=== PATIENT | female | born 1940 | race Caucasian/White ===

== ENCOUNTER 2017-02-08 06:08 | Emergency (ER) | payer MEDICARE ==
[~2017-02-08] VITALS: Ht 160 cm; Wt 102.4 kg
[~2017-02-08 06:08] MED LIST: 1-ME1LIQ PO; ALLO300 PO; AMAR4TAB PO; BISA10SU8 PR; CLON.1 PO; FURO1TAB93 PO; LACTCAP6 PO; LEVEMIR SC; LEVEMIR SQ; LEVO100T4 PO; LIPI40TA PO; LISI-363 PO; MACR100C PO; PANT20 PO; PRED10 PO; ST JTAB PO; ZYRT10TA12 PO
[2017-02-08 06:23] VITALS: BP 150/79; PULSE 85; RESP 20; TEMP 98.4; O2SAT 96
[2017-02-08] MEDS ORDERED: ONDANSETRON ODT 4 MG TAB PO ONE (07:30)
--- NOTE | 2017-02-08 07:30 | PD ---
HPI Chief Complaint: Musculoskeletal Complaint Time Seen by Provider: 07:13 Travel History International Travel<30 days: No Contact w/Intl Traveler<30days: No History of Present Illness HPI Patient is a 76-year-old female who presents to emergency room with complaints of right-sided elbow pain. Patient reports that on Friday, she was at home and tripped over a bag of soil. Patient reports that she landed on her right elbow, reports no trauma to the head or neck. Patient reports that she has had problems with her right shoulder at baseline and she has bad arthritis, reports the pain to her right shoulder is at baseline at this time. Patient does take a baby aspirin per day. Patient concerned that she may have a fracture to her right elbow as she reports difficulty with range of motion to her elbow. Patient denies any hip pain or pelvic pain, reports that she is able to ambulate without any difficulty at this time. PFSH Past Medical History Hx Anticoagulant Therapy: No Anemia: Yes Arthritis: Yes Asthma: No Anxiety: Yes Heart Rhythm Problems: No Cancer: No Cardiac Catheterization: Yes (2011: NEGATIVE) Cardiovascular Problems: No High Cholesterol: Yes Chemotherapy: No Chest Pain: Yes Congestive Heart Failure: Yes (?) COPD: No Cerebrovascular Accident: No Diabetes: Yes Diminished Hearing: No Endocrine: Yes (hypothyroid) Gastrointestinal Disorders: Yes (IBS) Glaucoma: No Gout: Yes Genitourinary: Yes (CHRONIC KIDNEY DISEASE--STAGE 3) Headaches: No Hepatitis: No Hiatal Hernia: Yes Hypertension: Yes Immune Disorder: Yes Implanted Vascular Access Dvce: No Musculoskeletal: Yes Neurologic: Yes Psychiatric: No Reproductive: No Respiratory: No Migraines: Yes Renal Failure: Yes (stage 3) Seizures: No Thyroid Disease: Yes (HYPO) Menopausal: Yes : 4 Para: 4 Past Surgical History Abdominal Surgery: Yes Appendectomy: Yes (?) Cardiac Surgery: No Ear Surgery: No Endocrine Surgery: No Eye Surgery: Yes (BILATERAL CATARACT) Genitourinary Surgery: Yes Gynecologic Surgery: Yes (1982 HYSTERECTOMY BILATERAL S&O) Hysterectomy: Yes Neurologic Surgery: No Oral Surgery: Yes (AGE 9 T&A) Pacemaker: No Thoracic Surgery: No Tonsillectomy: Yes Other Surgery: Yes Social History Alcohol Use: No Tobacco Use: No Substance Use: No Allergies-Medications (Allergen,Severity, Reaction): Coded Allergies: Nonsteroidal Anti-Inflammatory Agts (Verified Allergy, Severe, Urinary Freq (Inc/Dec), 02/08/17) KIDNEY FAILURE Sulfa (Verified Allergy, Severe, GI UPSET, 02/08/17) Aspirin (Verified Adverse Reaction, Severe, KIDNEY DISEASE, 02/08/17) Augmentin (Verified Adverse Reaction, Intermediate, SICK TO STOMACH, ) Biaxin (Verified Adverse Reaction, Intermediate, SICK TO STOMACH, 02/08/17) Ceclor (Verified Adverse Reaction, Intermediate, SICK TO STOMACH, 02/08/17) Cipro (Verified Adverse Reaction, Intermediate, SICK TO STOMACH, 02/08/17) Reported Meds & Prescriptions Reported Meds & Active Scripts Active Percocet (Oxycodone-Acetaminophen) 5-325 mg Tab 1 Tab PO Q6H PRN Reported Protonix (Pantoprazole Sodium) 20 Mg Tab 20 Mg PO DAILY Novolog Inj (Insulin Aspart) 1,000 Unit/10 Ml Vial 20 Units SQ DIRECTED Gabapentin 300 Mg Cap 300 Mg PO HS Metoprolol Tartrate 50 Mg Tab 50 Mg PO BID Flonase Nasal [place] (Fluticasone Nasal [place]) 50 Mcg/Act [place] 50 Mcg EACH NARE BID Lisinopril 20 Mg Tab 20 Mg PO DAILY Levothyroxine (Levothyroxine Sodium) 112 Mcg Tab 112 Mcg PO DAILY Probiotic Acidophilus Sup (Lactobacillus) 1 Tab Tab Levemir Inj (Insulin Detemir) 1,000 unit/ 10 ML Vial 40 Units SQ HS Do not mix with any other Insulin. Levemir Inj (Insulin Detemir) 1,000 unit/ 10 ML Vial 30 Units SQ DAILY@0600 Do not mix with any other Insulin. Amaryl (Glimepiride) 4 Mg Tab 4 Mg PO BID Take with breakfast or the first main meal Furosemide 20 Mg Tab 20 Mg PO DAILY Clonidine (Clonidine HCl) 0.1 Mg Tab 0.1 Mg PO BID Dulcolax DR (Bisacodyl) 5 Mg Tabdr 10 Mg PO BID Lipitor (Atorvastatin Calcium) 40 Mg Tab 40 Mg PO HS Aspirin 81 Mg Chew 81 Mg CHEW DAILY Allopurinol 300 Mg Tab 300 Mg PO DAILY Review of Systems Gastrointestinal: Positive: Nausea, No: Vomiting, Abdominal Pain Musculoskeletal: Positive: Limited ROM (right elbow pain), Pain (right elbow pain) Physical Exam Narrative GENERAL: Well-nourished, well-developed patient. SKIN: Warm and dry. HEAD: Normocephalic. EYES: No scleral icterus. No injection or drainage. NECK: Supple, trachea midline. No JVD or lymphadenopathy. CARDIOVASCULAR: Regular rate and rhythm without murmurs, gallops, or rubs. RESPIRATORY: Breath sounds equal bilaterally. No accessory muscle use. GASTROINTESTINAL: Abdomen soft, non-tender, nondistended. MUSCULOSKELETAL: No cyanosis, or edema. Patient with pain with range of motion to right elbow, patient does have healing abrasions with scabs to her right elbow, no obvious deformities or open fracture, pulses intact, neurovascularly intact, left upper extremity: Normal exam BACK: Nontender without obvious deformity. No CVA tenderness. Data Data Last Documented VS Vital Signs Date Time Temp Pulse Resp B/P Pulse Ox O2 Delivery O2 Flow Rate FiO2 02/08/17 06:23 98.4 85 20 150/79 96 Room Air Orders Elbow, Complete (4 Vws) (02/08/17 06:59) Ondansetron Odt (Zofran Odt) (02/08/17 07:30) Oxycodone-Acetamin 5-325 Mg (Percocet (02/08/17 08:15) Support Splint (02/08/17 08:10) MDM Medical Decision Making Medical Screen Exam Complete: Yes Emergency Medical Condition: Yes Interpretation(s) Vital Signs Date Time Temp Pulse Resp B/P Pulse Ox O2 Delivery O2 Flow Rate FiO2 02/08/17 06:23 98.4 85 20 150/79 96 Room Air Differential Diagnosis Right-sided elbow fracture versus right-sided elbow strain Narrative Course Patient is a 76-year-old female who presents to emergency room after she fell on Friday at home landing on her right elbow. Patient reports that she has had increased pain to her right elbow since Friday after the fall, reports concern for possible fracture. Patient reports that the pain is so severe, she feels sick to her stomach and feels nauseous. Patient here for x-ray of her elbow. Patient denies any trauma to the head or neck, patient currently takes a baby aspirin. Patient with no loss of consciousness after fall. X-ray of the right elbow ordered to evaluate for possible fracture X-ray of the elbow shows elbow effusion, fractures not seen, there is chronic hypertrophic changes adjacent to the lateral epicondyle Patient with elbow injury since friday - will have patient follow up with ortho as outpt and return to ER as needed. copy of pt's xray given to patient. patient will follow up with her orthopedic surgeon and will return to ER as needed. Diagnosis Primary Impression: Effusion of elbow joint, right Additional Impression: Sprain of right elbow Qualified Code: S53.401A - Sprain of right elbow, initial encounter Patient Instructions: General Instructions, Narcotic given in the ED Additional Instructions: Please follow-up with orthopedic surgeon as soon as possible Return to the emergency room as needed Please do not drive or operate heavy machinery while taking narcotic pain medications Please bring the copy of your elbow x-ray to doctor's office for follow-up Med/Other Pt SpecificInfo: Prescription(s) given, Orthopedic Instructions Scripts Oxycodone-Acetaminophen (Percocet)5-325 mg Tab1 Tab PO Q6H PRN (PAIN) #10 TAB Ref 0 Prov:Evelyn Locke DO 02/08/17 Disposition: 01 DISCHARGE HOME Condition: Stable Evelyn Locke DO Feb 08, 2017 07:30
--- NOTE | 2017-02-08 07:32 | RADHPO ---
EXAM DATE/TIME: 02/08/2017 07:06 [facility] COMPARISON: No previous studies available for comparison. INDICATIONS : Fell, has increasing pain, very limited ROM MEDICAL HISTORY : Diabetes mellitus type II. SURGICAL HISTORY : None. ENCOUNTER: Initial ACUITY: 4 - 6 days PAIN SCORE: 10/10 LOCATION: Right elbow FINDINGS: There is an elbow effusion. The elbow appears aligned. A fracture is not clearly seen. There is some hypertrophic change seen adjacent to the lateral epicondyle. CONCLUSION: 1. Elbow effusion. This can be an isolated finding or associated with occult fractures. A fracture is not seen. 2. Chronic hypertrophic change adjacent to the lateral epicondyle Jose M Silva MD on February 08, 2017 at 7:28 Board Certified Radiologist. This report was verified electronically.
[2017-02-08] MEDS ORDERED: ALLO300T2 PO (07:50)
[2017-02-08] MEDS ORDERED: FLUT1SPR5 EACH NARE (07:50)
[2017-02-08] MEDS ORDERED: PANT20 PO (07:50)
[2017-02-08] MEDS ORDERED: FURO20TA PO (07:50)
[2017-02-08] MEDS ORDERED: LEVEMIR SQ ×2 (07:50)
[2017-02-08] MEDS ORDERED: LIPI40TA PO (07:50)
[2017-02-08] MEDS ORDERED: CLON0.1T PO (07:50)
[2017-02-08] MEDS ORDERED: LACT1TAB2 (07:50)
[2017-02-08] MEDS ORDERED: NOVOLOGP2 SQ (07:50)
[2017-02-08] MEDS ORDERED: DULC5TAB PO (07:50)
[2017-02-08] MEDS ORDERED: METO50TA PO (07:50)
[2017-02-08] MEDS ORDERED: LEVO-168 PO (07:50)
[2017-02-08] MEDS ORDERED: LISI-515 PO (07:50)
[2017-02-08] MEDS ORDERED: AMAR4TAB PO (07:50)
[2017-02-08] MEDS ORDERED: ASPI81CH CHEW (07:50)
[2017-02-08] MEDS ORDERED: GABA300C5 PO (07:50)
[2017-02-08] MEDS ORDERED: PERC5TAB12 PO (08:10)
[2017-02-08] MEDS ORDERED: oxyCODONE/ACETAMINOPHEN 5 MG/325 MG TAB PO ONE (08:15)
== END 2017-02-08 08:56 | disposition home or self-care (01) ==
LOC: PHED 06:08
DX: M25.429 Effusion, unspecified elbow (principal); S53.491A Other sprain of right elbow, initial encounter; M19.90 Unspecified osteoarthritis, unspecified site; E13.21 Other specified diabetes mellitus with diabetic nephropathy; N18.3 Chronic kidney disease, stage 3 (moderate); E78.00 Pure hypercholesterolemia, unspecified; I12.9 Hypertensive chronic kidney disease with stage 1 through stage 4 chronic kidney disease, or unspecified chronic kidney disease; Z79.4 Long term (current) use of insulin; W18.09XA Striking against other object with subsequent fall, initial encounter; Y93.9 Activity, unspecified; Y92.099 Unspecified place in other non-institutional residence as the place of occurrence of the external cause; Y99.9 Unspecified external cause status
CPT/HCPCS: 73080; 99283

== ENCOUNTER 2017-08-30 18:40 | Inpatient (IN) | payer MEDICARE ==
[~2017-08-30] VITALS: Ht 160 cm; Wt 99.5 kg
[~2017-08-30 18:40] MED LIST changes: -1-ME1LIQ PO; -ALLO300 PO; +ALLO300T2 PO; +ASPI81CH CHEW; -BISA10SU8 PR; -CLON.1 PO; +CLON0.1T PO; +DULC5TAB PO; +FLUT1SPR5 EACH NARE; -FURO1TAB93 PO; +FURO20TA PO; +GABA300C5 PO; +LACT1TAB2; -LACTCAP6 PO; -LEVEMIR SC; +LEVO-168 PO; -LEVO100T4 PO; -LISI-363 PO; +LISI-515 PO; -MACR100C PO; +METO50TA PO; +NOVOLOGP2 SQ; +PERC5TAB12 PO; -PRED10 PO; -ST JTAB PO; -ZYRT10TA12 PO
[2017-08-30 18:44] VITALS: BP 272/135; PULSE 65; RESP 15; TEMP 98.4; O2SAT 98
[2017-08-30 18:45] VITALS: BP 273/153
[2017-08-30] MEDS ORDERED: hydrALAZINE HCL 20 MG/ML VIAL IV PUSH ONE (19:30)
[2017-08-30] MEDS ORDERED: SODIUM CHLORIDE 0.9% FLUSH 10 ML FLUSH IVF PRN (19:30)
--- NOTE | 2017-08-30 19:44 | PD ---
HPI Chief Complaint: Hypertension Time Seen by Provider: 19:05 Travel History International Travel<30 days: No Contact w/Intl Traveler<30days: No Traveled to known affect area: No History of Present Illness HPI This is a 77-year-old female who presents to the emergency department with a history of chronic kidney disease and high blood pressure. She says that she just started to take her blood pressure 2 days ago because she went to clinic appointments and was told that it was high in the 160s. She says in the past 2 days as been running in the 180s to 200s, constant, severe, not improving despite medications. She's developed some left-sided chest discomfort which she thinks may be her costochondritis as it is tender when she presses on the chest wall but she is not sure. She also says she has a headache but this is chronic for her. She takes metoprolol which was recently increased from 50-100 twice a day. She also takes diltiazem, lisinopril and clonidine. She says she is taking clonidine for years. 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 Marc her primary doctor. PFSH Past Medical History Hx Anticoagulant Therapy: No Anemia: Yes Arthritis: Yes Asthma: No Anxiety: Yes Heart Rhythm Problems: No Cancer: No Cardiac Catheterization: Yes (2011: NEGATIVE) Cardiovascular Problems: Yes High Cholesterol: Yes Chemotherapy: No Chest Pain: Yes Congestive Heart Failure: Yes (?) COPD: No Cerebrovascular Accident: No Diabetes: Yes Patient Takes Glucophage: No Diminished Hearing: Yes (right ear) Endocrine: Yes (hypothyroid) Gastrointestinal Disorders: Yes (ibs, gastroparesis) Glaucoma: No Gout: Yes Genitourinary: Yes (CHRONIC KIDNEY DISEASE--STAGE 3) Headaches: No Hepatitis: No Hiatal Hernia: Yes Hypertension: Yes Immune Disorder: Yes Implanted Vascular Access Dvce: No Musculoskeletal: Yes Neurologic: Yes Psychiatric: No Reproductive: No Respiratory: Yes (pulmonary fibrosis) Migraines: Yes Renal Failure: Yes (stage 3) Seizures: No Thyroid Disease: Yes (HYPO) Triglycerides - High: Yes Tetanus Vaccination: > 5 Years Influenza Vaccination: Yes ?: Not Menopausal: Yes : 4 Para: 4 Past Surgical History Abdominal Surgery: Yes Appendectomy: Yes (?) Cardiac Surgery: No Ear Surgery: No Endocrine Surgery: No Eye Surgery: Yes (cataract) Genitourinary Surgery: Yes Gynecologic Surgery: Yes (1983 HYSTERECTOMY BILATERAL S&O) Hysterectomy: Yes (total) Neurologic Surgery: No Oral Surgery: Yes (AGE 9 T&A) Pacemaker: No Thoracic Surgery: No Tonsillectomy: Yes Other Surgery: Yes Social History Alcohol Use: No Tobacco Use: No Substance Use: No Allergies-Medications (Allergen,Severity, Reaction): Coded Allergies: Sulfa (Sulfonamide Antibiotics) (Unverified Allergy, Severe, GI UPSET, ) diclofenac (Unverified Allergy, Severe, Urinary Freq (Inc/Dec), 08/30/17) KIDNEY FAILURE etodolac (Unverified Allergy, Severe, Urinary Freq (Inc/Dec), 08/30/17) KIDNEY FAILURE flurbiprofen (Unverified Allergy, Severe, Urinary Freq (Inc/Dec), 08/30/17) KIDNEY FAILURE ibuprofen (Unverified Allergy, Severe, Urinary Freq (Inc/Dec), 08/30/17) KIDNEY FAILURE indomethacin (Unverified Allergy, Severe, Urinary Freq (Inc/Dec), 08/30/17) KIDNEY FAILURE ketoprofen (Unverified Allergy, Severe, Urinary Freq (Inc/Dec), 08/30/17) KIDNEY FAILURE ketorolac (Unverified Allergy, Severe, Urinary Freq (Inc/Dec), 08/30/17) KIDNEY FAILURE naproxen (Unverified Allergy, Severe, Urinary Freq (Inc/Dec), 08/30/17) KIDNEY FAILURE oxaprozin (Unverified Allergy, Severe, Urinary Freq (Inc/Dec), 08/30/17) KIDNEY FAILURE aspirin (Unverified Adverse Reaction, Severe, KIDNEY DISEASE, 08/30/17) amoxicillin (Unverified Adverse Reaction, Intermediate, SICK TO STOMACH, ) cefaclor (Unverified Adverse Reaction, Intermediate, SICK TO STOMACH, 08/30) ciprofloxacin (Unverified Adverse Reaction, Intermediate, SICK TO STOMACH , 08/30/17) clarithromycin (Unverified Adverse Reaction, Intermediate, SICK TO STOMACH , 08/30/17) clavulanic acid (Unverified Adverse Reaction, Intermediate, SICK TO STOMACH, 08/30/17) Reported Meds & Prescriptions Reported Meds & Active Scripts Active Reported Linzess (Linaclotide) 290 Mcg Cap 290 Mcg PO DAILY Protonix (Pantoprazole Sodium) 20 Mg Tab 20 Mg PO DAILY Novolog Inj (Insulin Aspart) 1,000 Unit/10 Ml Vial 25 Units SQ DIRECTED Gabapentin 300 Mg Cap 300 Mg PO HS Metoprolol Tartrate 50 Mg Tab 100 Mg PO BID Flonase Nasal [place] (Fluticasone Nasal [place]) 50 Mcg/Act [place] 50 Mcg EACH NARE BID Lisinopril 20 Mg Tab 20 Mg PO DAILY Levothyroxine (Levothyroxine Sodium) 112 Mcg Tab 137 Mcg PO DAILY Levemir Inj (Insulin Detemir) 1,000 unit/ 10 ML Vial 40 Units SQ HS Do not mix with any other Insulin. Levemir Inj (Insulin Detemir) 1,000 unit/ 10 ML Vial 40 Units SQ DAILY@0600 Do not mix with any other Insulin. Amaryl (Glimepiride) 4 Mg Tab 4 Mg PO BID Take with breakfast or the first main meal Furosemide 20 Mg Tab 20 Mg PO DAILY Clonidine (Clonidine HCl) 0.1 Mg Tab 0.1 Mg PO BID Dulcolax DR (Bisacodyl) 5 Mg Tabdr 10 Mg PO BID Lipitor (Atorvastatin Calcium) 40 Mg Tab 40 Mg PO HS Aspirin 81 Mg Chew 81 Mg CHEW DAILY Allopurinol 300 Mg Tab 300 Mg PO DAILY Review of Systems Except as stated in HPI: all other systems reviewed are Neg Physical Exam Narrative GENERAL:Well appearing, no acute distress SKIN: Focused skin assessment warm and dry. HEAD: Atraumatic. Normocephalic. EYES: Pupils equal and round. No injection or drainage. ENT: Moist mucous membranes NECK: Trachea midline. CARDIOVASCULAR: Regular rate and rhythm. No murmur appreciated. RESPIRATORY: Clear to auscultation. Breath sounds equal bilaterally. GASTROINTESTINAL: Abdomen soft, non-tender, nondistended. MUSCULOSKELETAL: No obvious deformities. NEUROLOGICAL: Awake and alert. No obvious cranial nerve deficits.Moving all extremities. PSYCHIATRIC: Appropriate mood and affect; insight and judgment normal. Data Data Last Documented VS Vital Signs Date Time Temp Pulse Resp B/P (MAP) Pulse Ox O2 Delivery O2 Flow Rate FiO2 08/30/17 20:48 61 18 190/80 (116) 96 Room Air Automatic Cuff 08/30/17 18:44 98.4 Orders Orders Electrocardiogram (08/30/17 19:21) Complete Blood Count With Diff (08/30/17 19:21) Comprehensive Metabolic Panel (08/30/17 19:21) Troponin I (08/30/17 19:21) Ecg Monitoring (08/30/17 19:21) Bilateral Bp Monitoring (08/30/17 19:21) Iv Access Insert/Monitor (08/30/17 19:21) Oximetry (08/30/17 19:21) Oxygen Administration (08/30/17 19:21) Sodium Chloride 0.9% Flush (Ns Flush) (08/30/17 19:30) Ct Brain W/O Iv Contrast(Rout) (08/30/17 ) Hydralazine Inj (Apresoline Inj) (08/30/17 19:30) Sodium Chlor 0.9% 1000 Ml Inj (Ns 1000 M (08/30/17 21:00) Labs Laboratory Tests Test 08/30/17 19:51 White Blood Count 12.3 TH/MM3 Red Blood Count 4.48 MIL/MM3 Hemoglobin 14.2 GM/DL Hematocrit 43.6 % Mean Corpuscular Volume 97.3 FL Mean Corpuscular Hemoglobin 31.7 PG Mean Corpuscular Hemoglobin Concent 32.6 % Red Cell Distribution Width 14.4 % Platelet Count 297 TH/MM3 Mean Platelet Volume 9.9 FL Neutrophils (%) (Auto) 57.4 % Lymphocytes (%) (Auto) 30.2 % Monocytes (%) (Auto) 9.0 % Eosinophils (%) (Auto) 2.5 % Basophils (%) (Auto) 0.9 % Neutrophils # (Auto) 7.1 TH/MM3 Lymphocytes # (Auto) 3.7 TH/MM3 Monocytes # (Auto) 1.1 TH/MM3 Eosinophils # (Auto) 0.3 TH/MM3 Basophils # (Auto) 0.1 TH/MM3 CBC Comment DIFF FINAL Differential Comment Blood Urea Nitrogen 18 MG/DL Creatinine 1.39 MG/DL Random Glucose 179 MG/DL Total Protein 6.7 GM/DL Albumin 2.8 GM/DL Calcium Level 9.0 MG/DL Alkaline Phosphatase 95 U/L Aspartate Amino Transf (AST/SGOT) 22 U/L Alanine Aminotransferase (ALT/SGPT) 23 U/L Total Bilirubin 0.5 MG/DL Sodium Level 141 MEQ/L Potassium Level 3.4 MEQ/L Chloride Level 107 MEQ/L Carbon Dioxide Level 23.2 MEQ/L Anion Gap 11 MEQ/L Estimat Glomerular Filtration Rate 37 ML/MIN Troponin I 0.04 NG/ML MDM Medical Decision Making Medical Screen Exam Complete: Yes Emergency Medical Condition: Yes Interpretation(s) Afebrile, no tachycardia, hypertensive Leukocytosis Mild hypokalemia Renal insufficiency similar to prior Troponin is 0.04 EKG: nsr, no st changes Differential Diagnosis hypertensive emergency, hypertensive urgency, nstemi, intracranial hemorrhage Narrative Course This is a 77-year-old female who presents to the emergency department with hypertension. She also has headache and chest discomfort. She is placed in a monitor and an IV was established. Her blood pressure was quite high on arrival. She was given a 20 mg IV hydralazine dose as she takes clonidine at home, and her map reduced significantly. Labs are obtained which were all reassuring. I think patient requires admission for continued blood pressure control. Physician Communication Physician Communication Discussed with Dr. Clark Diagnosis Primary Impression: Hypertensive urgency Admitting Information Admitting Physician Requests: Admit Zahida Colin MD Aug 30, 2017 19:43
[2017-08-30] MEDS ORDERED: LINA290C PO (19:45)
[2017-08-30 20:07] LABS: AUTOMATED NEUTROPHIL # 7.1 TH/MM3 (1.8-7.7); BASOPHIL # 0.1 TH/MM3 (0-0.2); BASOPHIL % 0.9 % (0.0-2.0); EOSINOPHIL # 0.3 TH/MM3 (0-0.4); EOSINOPHIL % 2.5 % (0.0-4.0); HEMATOCRIT 43.6 % (35.0-46.0); HEMO FLAGS DIFF FINAL; LYMPH % 30.2 % (9.0-44.0); LYMPHOCYTE # 3.7 TH/MM3 (1.0-4.8); MEAN CELL VOLUME 97.3 FL (80.0-100.0); MEAN CORPUSCULAR HEMOGLOBIN 31.7 PG (27.0-34.0); MEAN CORPUSCULAR HGB CONC 32.6 % (32.0-36.0); NEUT % 57.4 % (16.0-70.0); PLATELET COUNT 297 TH/MM3 (150-450); RED BLOOD COUNT 4.48 MIL/MM3 (4.00-5.30); RED CELL DISTRIBUTION WIDTH 14.4 % (11.6-17.2); WHITE BLOOD COUNT 12.3 TH/MM3 (4.0-11.0)
--- NOTE | 2017-08-30 20:26 | RADRPT ---
EXAM DATE/TIME: 08/30/2017 19:47 [facility] COMPARISON: CT BRAIN W/O CONTRAST, August 17, 2015, 23:04. INDICATIONS : Cephalgia today. RADIATION DOSE: 56.35 CTDIvol (mGy) MEDICAL HISTORY : Hypertension. renal disease, diabetes SURGICAL HISTORY : cardiac catheterization ENCOUNTER: Initial ACUITY: 1 day PAIN SCALE: 5/10 LOCATION: Bilateral head TECHNIQUE: Multiple contiguous axial images were obtained of the head. Using automated exposure control and adj ustment of the mA and/or kV according to patient size, radiation dose was kept as low as reasonably a chievable to obtain optimal diagnostic quality images. DICOM format image data is available electro nically for review and comparison. FINDINGS: CEREBRUM: The ventricles are normal for age. No evidence of midline shift, mass lesion, hemorrhage or acute in farction. No extra-axial fluid collections are seen. POSTERIOR FOSSA: The cerebellum and brainstem are intact. The 4th ventricle is midline. The cerebellopontine angle i s unremarkable. EXTRACRANIAL: The visualized portion of the orbits is intact. SKULL: The calvaria is intact. No evidence of skull fracture. CONCLUSION: Negative noncontrast CT brain. Bharath Bernard MD on August 30, 2017 at 20:24 Board Certified Radiologist. This report was verified electronically.
[2017-08-30 20:30] LABS: ALT (GPT) 23 U/L (10-53); ANION GAP 11 MEQ/L (5-15); AST (GOT) 22 U/L (15-37); BICARBONATE 23.2 MEQ/L (21.0-32.0); BLOOD UREA NITROGEN 18 MG/DL (7-18); CHLORIDE 107 MEQ/L (98-107); GLOMERULAR FILTRATION RATE 37 ML/MIN (>89); POTASSIUM 3.4 MEQ/L (3.5-5.1); SODIUM (NA) 141 MEQ/L (136-145)
[2017-08-30 20:35] LABS: ALKALINE PHOSPHATASE 95 U/L (45-117); TOTAL BILIRUBIN ADULT 0.5 MG/DL (0.2-1.0)
[2017-08-30 20:40] VITALS: RESP 17; O2SAT 95
[2017-08-30 20:48] VITALS: BP 190/80; PULSE 61; RESP 18; O2SAT 96
[2017-08-30] MEDS ORDERED: SODIUM CHLOR 0.9% 1000 ML INJ 1,000 ML IV SCH ×2 (21:00→21:30)
[2017-08-30] MEDS ORDERED: ONDANSETRON HCL 4 MG/2 ML VIAL IV ONE (21:30)
[2017-08-30] MEDS ORDERED: MAGNESIUM HYDROXIDE SUSP 30 ML CUP PO PRN (22:00)
[2017-08-30] MEDS ORDERED: NALOXONE HCL 0.4 MG/ML AMP IV PUSH PRN (22:00)
[2017-08-30] MEDS ORDERED: LABETALOL HCL 100 MG/20 ML VIAL IV PUSH PRN (22:00)
[2017-08-30] MEDS ORDERED: SODIUM CHLORIDE 0.9% FLUSH 10 ML FLUSH IV FLUSH PRN (22:00)
--- NOTE | 2017-08-30 22:10 | RADRPT ---
EXAM DATE/TIME: 08/30/2017 21:56 [facility] COMPARISON: No previous studies available for comparison. INDICATIONS : Cough. MEDICAL HISTORY : None. SURGICAL HISTORY : None. ENCOUNTER: Initial ACUITY: 1 day PAIN SCORE: 0/10 LOCATION: chest FINDINGS: The patient is rotated towards the left. Patchy areas of infiltrate are seen in the medial left lowe r lung loss of delineation of the hemidiaphragm. The right lung is clear. Both hemidiaphragms are w ell delineated. The heart is normal size and taking into account patient rotation. CONCLUSION: Small non-consolidative infiltrate in the medial left lower lung. Bharath Bernard MD on August 30, 2017 at 22:08 Board Certified Radiologist. This report was verified electronically.
--- NOTE | 2017-08-30 22:44 | EKG ---
Date Performed: 08/30/2017 Time Performed: 20:19:49 PTAGE: 77 years EKG: SINUS BRADYCARDIA POSSIBLE LEFT ATRIAL ENLARGEMENT BORDERLINE ECG PREVIOUS TRACING : 12/17/2011 07.13 No significant change from previous tracing noted. DOCTOR: David Roblero Interpretating Date/Time 08/30/2017 22:42:21
[2017-08-30] MEDS: ATORVASTATIN 40 MG TAB PO SCH (22:58)
[2017-08-30] MEDS: BISACODYL EC 5 MG TABEC PO SCH (22:58)
[2017-08-30] MEDS: GABAPENTIN 300 MG CAP PO SCH (22:59)
[2017-08-30 23:08] VITALS: BP 170/75; PULSE 67; RESP 18; O2SAT 95
[2017-08-30] MEDS: METOPROLOL TARTRATE 50 MG TAB PO SCH (23:20)
[2017-08-30] MEDS: cloNIDine HCL 0.1 MG TAB PO SCH (23:20)
[2017-08-30] MEDS: INSULIN DETEMIR 100 UNITS/ML VIAL SQ SCH (23:20)
[2017-08-30 23:34] VITALS: BP 205/90; PULSE 78; RESP 18; O2SAT 98
[2017-08-31] VITALS (27 sets, daily range): BP systolic 125–202; BP diastolic 49–84; PULSE 56–84; RESP 16–20; TEMP 97.8–98.3; O2SAT 94–97
[2017-08-31] MEDS: ACETAMINOPHEN 325 MG TAB PO PRN ×3 (01:20→20:08)
[2017-08-31] MEDS: LEVOTHYROXINE SODIUM 112 MCG TAB PO SCH (06:15)
[2017-08-31] MEDS: LEVOTHYROXINE SODIUM 25 MCG TAB PO SCH (06:16)
[2017-08-31 06:50] LABS: AUTOMATED NEUTROPHIL # 7.4 TH/MM3 (1.8-7.7); BASOPHIL # 0.1 TH/MM3 (0-0.2); BASOPHIL % 0.5 % (0.0-2.0); EOSINOPHIL # 0.2 TH/MM3 (0-0.4); EOSINOPHIL % 1.7 % (0.0-4.0); HEMATOCRIT 37.4 % (35.0-46.0); HEMO FLAGS DIFF FINAL; LYMPH % 25.4 % (9.0-44.0); LYMPHOCYTE # 2.9 TH/MM3 (1.0-4.8); MEAN CELL VOLUME 98.1 FL (80.0-100.0); MEAN CORPUSCULAR HEMOGLOBIN 32.6 PG (27.0-34.0); MEAN CORPUSCULAR HGB CONC 33.2 % (32.0-36.0); MONO % 8.3 % (0.0-8.0); NEUT % 64.1 % (16.0-70.0); PLATELET COUNT 235 TH/MM3 (150-450); RED BLOOD COUNT 3.82 MIL/MM3 (4.00-5.30); RED CELL DISTRIBUTION WIDTH 14.8 % (11.6-17.2); WHITE BLOOD COUNT 11.5 TH/MM3 (4.0-11.0)
[2017-08-31 06:59] LABS: BICARBONATE 24.7 MEQ/L (21.0-32.0); POTASSIUM 3.3 MEQ/L (3.5-5.1)
[2017-08-31] MEDS: INSULIN ASPART SUPPLEMENTAL SCALE SQ SCH ×4 (08:00→20:10)
[2017-08-31] MEDS: METOPROLOL TARTRATE 50 MG TAB PO SCH ×2 (08:24→20:10)
[2017-08-31] MEDS: BISACODYL EC 5 MG TABEC PO SCH ×2 (08:24→20:09)
[2017-08-31] MEDS: PANTOPRAZOLE SOD 20 MG DELAYED RELEASE TAB PO SCH (08:24)
[2017-08-31] MEDS: ASPIRIN 81 MG CHEW TAB CHEW SCH (08:24)
[2017-08-31] MEDS: LISINOPRIL 20 MG TAB PO SCH (08:25)
[2017-08-31] MEDS: ALLOPURINOL 300 MG TAB PO SCH (08:25)
[2017-08-31] MEDS: cloNIDine HCL 0.1 MG TAB PO SCH ×2 (08:25→20:07)
[2017-08-31] MEDS: GLIMEPIRIDE 4 MG TAB PO SCH ×2 (08:25→20:08)
[2017-08-31] MEDS: FUROSEMIDE 20 MG TAB PO SCH (08:30)
[2017-08-31] MEDS: SODIUM CHLORIDE 0.9% FLUSH 10 ML FLUSH IV FLUSH SCH ×2 (08:30→20:09)
[2017-08-31] MEDS ORDERED: POTASSIUM CHLORIDE 20 MEQ CONTROLLED RELEASE TAB PO ONE (08:45)
--- NOTE | 2017-08-31 08:48 | HHI.HP ---
HPI Service [facility] Hospitalists Primary Care Physician Will Marc MD Admission Diagnosis hypertensive urgency Chief Complaint: HTN, headache Travel History International Travel<30 Days: No Contact w/Intl Traveler <30 Da: No Traveled to Known Affected Are: No History of Present Illness This is a 77 year old female patient with a past medical history which includes HTN, DM, peripheral neuropathy, hypothyroidism, gout, hyperlipidemia, CKD and IBS. Patient was seen by her PCP Dr. Marc and was told to keep a BP log. At home patient SBP has been running 180-200. Patient reports that she had called the [facility] nurse and was told to proceed to the ER. Patient had chest pain last night which she describes tight band across her chest. There was no associated SOB, diaphoresis, nausea or vomiting. Patient also has left- sided chest discomfort which is reproducible with palpation of chest wall. She also says she had a headache which is improving and mild at this point. She takes metoprolol which was recently increased from 50-100 twice a day by her hoop maker Dr. Corea, lisinopril 20 mg PO daily and clonidine 0.1 mg BID. She says she is taking clonidine for years. Review of Systems Constitutional: DENIES: Diaphoretic episodes, Fever, Chills Eyes: DENIES: Blurred vision, Vision loss, Double Vision Respiratory: DENIES: Cough, Sputum production, Shortness of breath Cardiovascular: COMPLAINS OF: Chest pain, DENIES: Palpitations, Dyspnea on Exertion, Lower Extremity Edema Gastrointestinal: DENIES: Abdominal pain, Constipation, Diarrhea Neurologic: COMPLAINS OF: Headache Psychiatric: DENIES: Anxiety, Confusion, Depression Past Family Social History Past Medical History HTN, DM, peripheral neuropathy, hypothyroidism, gout, hyperlipidemia, CKD and IBS Past Surgical History Appendectomy, cataract surgery, hysterectomy wit oophorectomy, tonsillectomy and adenoidectomy as a child Reported Medications Linzess (Linaclotide) 290 Mcg Cap 290 Mcg PO DAILY Protonix (Pantoprazole Sodium) 20 Mg Tab 20 Mg PO DAILY Novolog Inj (Insulin Aspart) 1,000 Unit/10 Ml Vial 25 Units SQ DIRECTED Gabapentin 300 Mg Cap 300 Mg PO HS Metoprolol Tartrate 50 Mg Tab 100 Mg PO BID Flonase Nasal [place] (Fluticasone Nasal [place]) 50 Mcg/Act [place] 50 Mcg EACH NARE BID Lisinopril 20 Mg Tab 20 Mg PO DAILY Levothyroxine (Levothyroxine Sodium) 112 Mcg Tab 137 Mcg PO DAILY Levemir Inj (Insulin Detemir) 1,000 unit/ 10 ML Vial 40 Units SQ HS Do not mix with any other Insulin. Levemir Inj (Insulin Detemir) 1,000 unit/ 10 ML Vial 40 Units SQ DAILY@0600 Do not mix with any other Insulin. Amaryl (Glimepiride) 4 Mg Tab 4 Mg PO BID Take with breakfast or the first main meal Furosemide 20 Mg Tab 20 Mg PO DAILY Clonidine (Clonidine HCl) 0.1 Mg Tab 0.1 Mg PO BID Dulcolax DR (Bisacodyl) 5 Mg Tabdr 10 Mg PO BID Lipitor (Atorvastatin Calcium) 40 Mg Tab 40 Mg PO HS Aspirin 81 Mg Chew 81 Mg CHEW DAILY Allopurinol 300 Mg Tab 300 Mg PO DAILY Allergies: Coded Allergies: Sulfa (Sulfonamide Antibiotics) (Unverified Allergy, Severe, GI UPSET, ) diclofenac (Unverified Allergy, Severe, Urinary Freq (Inc/Dec), 08/30/17) KIDNEY FAILURE etodolac (Unverified Allergy, Severe, Urinary Freq (Inc/Dec), 08/30/17) KIDNEY FAILURE flurbiprofen (Unverified Allergy, Severe, Urinary Freq (Inc/Dec), 08/30/17) KIDNEY FAILURE ibuprofen (Unverified Allergy, Severe, Urinary Freq (Inc/Dec), 08/30/17) KIDNEY FAILURE indomethacin (Unverified Allergy, Severe, Urinary Freq (Inc/Dec), 08/30/17) KIDNEY FAILURE ketoprofen (Unverified Allergy, Severe, Urinary Freq (Inc/Dec), 08/30/17) KIDNEY FAILURE ketorolac (Unverified Allergy, Severe, Urinary Freq (Inc/Dec), 08/30/17) KIDNEY FAILURE naproxen (Unverified Allergy, Severe, Urinary Freq (Inc/Dec), 08/30/17) KIDNEY FAILURE oxaprozin (Unverified Allergy, Severe, Urinary Freq (Inc/Dec), 08/30/17) KIDNEY FAILURE aspirin (Unverified Adverse Reaction, Severe, KIDNEY DISEASE, 08/30/17) amoxicillin (Unverified Adverse Reaction, Intermediate, SICK TO STOMACH, ) cefaclor (Unverified Adverse Reaction, Intermediate, SICK TO STOMACH, 08/30) ciprofloxacin (Unverified Adverse Reaction, Intermediate, SICK TO STOMACH , 08/30/17) clarithromycin (Unverified Adverse Reaction, Intermediate, SICK TO STOMACH , 08/30/17) clavulanic acid (Unverified Adverse Reaction, Intermediate, SICK TO STOMACH, 08/30/17) Active Ordered Medications Current Medications Medications (Trade) Dose Ordered Sig/Booker Route Start Time Stop Time Status Last Admin (NS Flush) 2 ml UNSCH PRN IV FLUSH 08/30/17 22:00 (NS Flush) 2 ml BID IV FLUSH 08/31/17 09:00 (Tylenol) 650 mg Q4H PRN PO 08/30/17 22:00 08/31/17 01:20 (Zofran Inj) 4 mg Q6H PRN IVP 08/30/17 22:00 (Narcan Inj) 0.4 mg UNSCH PRN IV PUSH 08/30/17 22:00 (Milk Of Magnrui Liq) 30 ml Q12H PRN PO 08/30/17 22:00 (Zyloprim) 300 mg DAILY PO 08/31/17 09:00 (Aspirin Chew) 81 mg DAILY CHEW 08/31/17 09:00 (Lipitor) 40 mg HS PO 08/30/17 22:00 08/30/17 22:58 (Dulcolax Ec) 10 mg BID PO 08/30/17 22:00 08/30/17 22:58 (Catapres) 0.1 mg BID PO 08/30/17 22:00 08/30/17 23:20 (Lasix) 20 mg DAILY PO 08/31/17 09:00 (Neurontin) 300 mg HS PO 08/30/17 22:00 08/30/17 22:59 (Amaryl) 4 mg BID PO 08/31/17 09:00 (Synthroid) 112 mcg DAILY@0700 PO 08/31/17 07:00 08/31/17 06:15 (Prinivil) 20 mg DAILY PO 08/31/17 09:00 (Lopressor) 100 mg BID PO 08/30/17 22:00 08/30/17 23:20 (Protonix) 20 mg DAILY PO 08/31/17 09:00 Patient Own Medication PT OWN MED: LINLorena... DAILY PO 08/31/17 09:00 (Levemir Inj) 10 units BID SQ 08/30/17 22:00 08/30/17 23:20 (NovoLOG SUPPLEMENTAL SCALE) 1 ACHS SLIDING SCALE SQ 08/31/17 08:00 (Trandate Inj) 10 mg Q2H PRN IV PUSH 08/30/17 22:00 (Synthroid) 25 mcg DAILY@0700 PO 08/31/17 07:00 08/31/17 06:16 Family History reviewed and noncontributory Social History denies ETOH, Tobacco use or illicit drug use Physical Exam Vital Signs Vital Signs Date Time Temp Pulse Resp B/P (MAP) Pulse Ox O2 Delivery O2 Flow Rate FiO2 08/31/17 08:09 97.9 61 16 202/82 (122) 94 08/31/17 07:58 Room Air 08/31/17 07:47 60 08/31/17 06:00 70 08/31/17 05:00 69 08/31/17 04:00 Room Air 08/31/17 04:00 60 08/31/17 04:00 98.0 60 18 125/49 (74) 97 08/31/17 03:00 69 08/31/17 02:00 65 08/31/17 01:00 71 08/31/17 00:33 08/31/17 00:00 60 08/31/17 00:00 98.3 84 20 163/84 (110) 97 08/30/17 23:34 78 18 205/90 (128) 98 Room Air 08/30/17 23:08 67 18 170/75 (106) 95 Room Air 08/30/17 20:48 61 18 190/80 (116) 96 Room Air Automatic Cuff 08/30/17 20:40 17 95 Room Air 08/30/17 20:00 94 Room Air 08/30/17 18:45 273/153 (193) 08/30/17 18:44 98.4 65 15 272/135 (180) 98 Physical Exam GENERAL: This is a well-nourished, well-developed patient, in no apparent distress. SKIN: No rashes, ecchymoses or lesions. Cool and dry. HEAD: Atraumatic. Normocephalic. No temporal or scalp tenderness. EYES:Extraocular motions intact. No scleral icterus. No injection or drainage. CARDIOVASCULAR: Bradycardic RESPIRATORY: Clear to auscultation. Breath sounds equal bilaterally. No wheezes , rales, or rhonchi. GASTROINTESTINAL: Abdomen soft, non-tender, nondistended. No hepato-splenomegaly , or palpable masses. No guarding. MUSCULOSKELETAL: Extremities without clubbing, cyanosis, or edema. No joint tenderness, effusion, or edema noted. No calf tenderness. Negative Homans sign bilaterally. NEUROLOGICAL: Awake and alert. No focal deficits. Motor and sensory grossly within normal limits. Five out of 5 muscle strength in all muscle groups. Normal speech. Laboratory Laboratory Tests Test 08/30/17 19:51 08/31/17 06:15 White Blood Count 12.3 11.5 Red Blood Count 4.48 3.82 Hemoglobin 14.2 12.4 Hematocrit 43.6 37.4 Mean Corpuscular Volume 97.3 98.1 Mean Corpuscular Hemoglobin 31.7 32.6 Mean Corpuscular Hemoglobin Concent 32.6 33.2 Red Cell Distribution Width 14.4 14.8 Platelet Count 297 235 Mean Platelet Volume 9.9 10.2 Neutrophils (%) (Auto) 57.4 64.1 Lymphocytes (%) (Auto) 30.2 25.4 Monocytes (%) (Auto) 9.0 8.3 Eosinophils (%) (Auto) 2.5 1.7 Basophils (%) (Auto) 0.9 0.5 Neutrophils # (Auto) 7.1 7.4 Lymphocytes # (Auto) 3.7 2.9 Monocytes # (Auto) 1.1 1.0 Eosinophils # (Auto) 0.3 0.2 Basophils # (Auto) 0.1 0.1 CBC Comment DIFF FINAL DIFF FINAL Differential Comment Blood Urea Nitrogen 18 16 Creatinine 1.39 1.32 Random Glucose 179 175 Total Protein 6.7 Albumin 2.8 Calcium Level 9.0 8.5 Alkaline Phosphatase 95 Aspartate Amino Transf (AST/SGOT) 22 Alanine Aminotransferase (ALT/SGPT) 23 Total Bilirubin 0.5 Sodium Level 141 143 Potassium Level 3.4 3.3 Chloride Level 107 109 Carbon Dioxide Level 23.2 24.7 Anion Gap 11 9 Estimat Glomerular Filtration Rate 37 39 Troponin I 0.04 Result Diagram: 08/31/1761408/31/17614 Caprini VTE Risk Assessment Caprini VTE Risk Assessment: Mod/High Risk (score >= 2) Caprini Risk Assessment Model Point Value = 1 Point Value = 2 Point Value = 3 Point Value = 5 Age 41-60 Minor surgery BMI > 25 kg/m2 Swollen legs Varicose veins or History of unexplained or recurrent spontaneous Oral contraceptives or hormone replacement Sepsis (< 1 month) Serious lung disease, including pneumonia (< 1 month) Abnormal pulmonary function Acute myocardial infarction Congestive heart failure (< 1 month) History of inflammatory bowel disease Medical patient at bed rest Age 61-74 Arthroscopic surgery Major open surgery (> 45 min) Laparoscopic surgery (> 45 min) Malignancy Confined to bed (> 72 hours) Immobilizing plaster cast Central venous access Age >= 75 History of VTE Family history of VTE Factor V Leiden Prothrombin [id number] Lupus anticoagulant Anticardiolipin antibodies Elevated serum homocysteine Heparin-induced thrombocytopenia Other congenital or acquired thrombophilia Stroke (< 1 month) Elective arthroplasty Hip, pelvis, or leg fracture Acute spinal cord injury (< 1 month) Prophylaxis Regimen Total Risk Factor Score Risk Level Prophylaxis Regimen 0-1 Low Early ambulation 2 Moderate Order ONE of the following: *Sequential Compression Device (SCD) *Heparin 5000 units SQ BID 3-4 Higher Order ONE of the following medications: *Heparin 5000 units SQ TID *Enoxaparin/Lovenox 40 mg SQ daily (WT < 150 kg, CrCl > 30 mL/min) *Enoxaparin/Lovenox 30 mg SQ daily (WT < 150 kg, CrCl > 10-29 mL/min) *Enoxaparin/Lovenox 30 mg SQ BID (WT < 150 kg, CrCl > 30 mL/min) AND/OR *Sequential Compression Device (SCD) 5 or more Highest Order ONE of the following medications: *Heparin 5000 units SQ TID (Preferred with Epidurals) *Enoxaparin/Lovenox 40 mg SQ daily (WT < 150 kg, CrCl > 30 mL/min) *Enoxaparin/Lovenox 30 mg SQ daily (WT < 150 kg, CrCl > 10-29 mL/min) *Enoxaparin/Lovenox 30 mg SQ BID (WT < 150 kg, CrCl > 30 mL/min) AND *Sequential Compression Device (SCD) Assessment and Plan Problem List: (1) Hypertensive urgency ICD Codes: I16.0 - Hypertensive urgency Status: Acute Plan: HTN urgency- acute resume patient's home medications which include Labetalol 100 mg PO BID, Lisinopril 20 mg po daily and clonidine 0.1 mg BID add Hydralazine 20 mg IV push PRN, Labetalol 10 mg IV PRN if no improvement will add Procardia XL 60 mg BID monitor BP trend Chest pain reproducible with palpation- likely costochondritis HTN may also be contributing to chest pain initial EKG reviewed and reveals SB rate [address] changes Will trend serial troponin and EKG Headache- improving- likely related to HTN CT head reviewed and revealed no acute process Control BP Tylenol as needed DM- Patient takes glimepiride 2 mg PO daily and Levemir 40 units SQ BID at home will resume glimepiride start with Levemir 10 units SQ BID accu checks ACHS with SSI coverage Hypothyroidism continue patient's home Synthroid Synthroid increased to 137 mcg daily by her hoop maker Dr. Corea Friday CKD- appears to be at baseline avoid nephrotoxic agents monitor renal function Hyperlipidemia Continue home medication DVT prophylaxis with SCDs (2) Diabetes mellitus ICD Codes: E11.9 - Type 2 diabetes mellitus without complications Status: Chronic (3) Hypothyroidism ICD Codes: E03.9 - Hypothyroidism, unspecified Status: Chronic (4) Hyperlipidemia ICD Codes: E78.5 - Hyperlipidemia, unspecified Status: Chronic (5) CKD (chronic kidney disease) ICD Codes: N18.9 - Chronic kidney disease, unspecified Status: Chronic (6) IBS (irritable bowel syndrome) ICD Codes: K58.9 - Irritable bowel syndrome without diarrhea Status: Chronic Assessment and Plan Patient examined. Assessment and plan formulated with Rachell Vaz PA-C. I agree with the above. Physician Certification 2 Midnight Certification Type: Admission for Inpatient Services Order for Inpatient Services The services are ordered in accordance with Medicare regulations or non- Medicare payer requirements, as applicable. In the case of services not specified as inpatient-only, they are appropriately provided as inpatient services in accordance with the 2-midnight benchmark. Estimated LOS (days): 3 days is the estimated time the patient will need to remain in the hospital, assuming treatment plan goals are met and no additional complications. Post-Hospital Plan: Colbert Rachell Vaz Aug 31, 2017 08:48 Augustine Clark DO Sep 02, 2017 17:34
[2017-08-31] MEDS: LINZESS 290 MCG PO SCH (09:00)
[2017-08-31] MEDS: INSULIN DETEMIR 100 UNITS/ML VIAL SQ SCH ×2 (09:31→20:10)
[2017-08-31] MEDS: NIFEdipine 60 MG SUSTAINED RELEASE TAB PO SCH ×2 (11:10→20:08)
[2017-08-31] MEDS: ATORVASTATIN 40 MG TAB PO SCH (20:07)
[2017-08-31] MEDS: GABAPENTIN 300 MG CAP PO SCH (20:07)
[2017-09-01] VITALS (25 sets, daily range): BP systolic 97–159; BP diastolic 45–68; PULSE 64–87; RESP 18–20; TEMP 98.1–98.7; O2SAT 90–96
[2017-09-01] MEDS: LEVOTHYROXINE SODIUM 25 MCG TAB PO SCH (06:08)
[2017-09-01] MEDS: LEVOTHYROXINE SODIUM 112 MCG TAB PO SCH (06:08)
[2017-09-01] MEDS: ACETAMINOPHEN 325 MG TAB PO PRN (06:09)
--- NOTE | 2017-09-01 08:24 | HHI.PR ---
Subjective Remarks doing ok. had some gi upset last night which she says is typical. Objective Vitals heart reg lung cta abd s/nt ext no edema Vital Signs Date Time Temp Pulse Resp B/P (MAP) Pulse Ox O2 Delivery O2 Flow Rate FiO2 09/01/17 06:00 77 09/01/17 05:00 79 09/01/17 04:00 86 09/01/17 04:00 98.1 86 18 159/62 (94) 96 09/01/17 04:00 Room Air 09/01/17 03:00 81 09/01/17 02:00 80 09/01/17 01:00 85 09/01/17 00:00 75 09/01/17 00:00 Room Air 09/01/17 00:00 98.3 75 18 150/55 (86) 95 08/31/17 23:00 74 08/31/17 22:00 65 08/31/17 21:00 74 08/31/17 20:00 77 08/31/17 20:00 98.2 77 20 153/58 (89) 95 08/31/17 20:00 Room Air 08/31/17 18:00 66 08/31/17 17:15 66 08/31/17 16:03 70 08/31/17 15:28 97.8 73 16 202/82 (122) 96 08/31/17 15:00 66 08/31/17 14:00 62 08/31/17 13:00 78 08/31/17 12:00 68 08/31/17 11:12 97.8 68 16 188/81 (116) 94 Manual Cuff/Auscultation 08/31/17 11:00 69 08/31/17 10:00 64 08/31/17 09:25 200/82 (121) 08/31/17 09:00 66 Result Diagram: 08/31/1761408/31/17614 A/P Problem List: (1) Hypertensive urgency ICD Codes: I16.0 - Hypertensive urgency Status: Acute Plan: HTN urgency- acute cont current medications. bp overall improved. If stable today then d/c her in AM with close pcp f/u Chest pain reproducible with palpation- likely costochondritis HTN may also be contributing to chest pain initial EKG reviewed and reveals SB rate [address] changes Headache- improving- likely related to HTN CT head reviewed and revealed no acute process Control BP Tylenol as needed DM- Patient takes glimepiride 2 mg PO daily and Levemir 40 units SQ BID at home will resume glimepiride levemir as tolerated. accu checks ACHS with SSI coverage Hypothyroidism continue patient's home Synthroid Synthroid increased to 137 mcg daily by her scratcher tender Dr. Corea Friday CKD- appears to be at baseline avoid nephrotoxic agents monitor renal function Hyperlipidemia Continue home medication DVT prophylaxis with SCDs (2) Diabetes mellitus ICD Codes: E11.9 - Type 2 diabetes mellitus without complications (3) Hypothyroidism ICD Codes: E03.9 - Hypothyroidism, unspecified Status: Chronic (4) Hyperlipidemia ICD Codes: E78.5 - Hyperlipidemia, unspecified Status: Chronic (5) CKD (chronic kidney disease) ICD Codes: N18.9 - Chronic kidney disease, unspecified Status: Chronic (6) IBS (irritable bowel syndrome) ICD Codes: K58.9 - Irritable bowel syndrome without diarrhea Status: Chronic Tony Vernon MD Sep 01, 2017 08:24
[2017-09-01] MEDS: LINZESS 290 MCG PO SCH (09:00)
[2017-09-01] MEDS: LISINOPRIL 20 MG TAB PO SCH (10:31)
[2017-09-01] MEDS: ALLOPURINOL 300 MG TAB PO SCH (10:31)
[2017-09-01] MEDS: PANTOPRAZOLE SOD 20 MG DELAYED RELEASE TAB PO SCH (10:31)
[2017-09-01] MEDS: ASPIRIN 81 MG CHEW TAB CHEW SCH (10:32)
[2017-09-01] MEDS: BISACODYL EC 5 MG TABEC PO SCH ×2 (10:32→20:32)
[2017-09-01] MEDS: GLIMEPIRIDE 4 MG TAB PO SCH ×2 (10:32→20:31)
[2017-09-01] MEDS: NIFEdipine 60 MG SUSTAINED RELEASE TAB PO SCH ×2 (10:32→20:30)
[2017-09-01] MEDS: cloNIDine HCL 0.1 MG TAB PO SCH ×2 (10:33→20:31)
[2017-09-01] MEDS: FUROSEMIDE 20 MG TAB PO SCH (11:04)
[2017-09-01] MEDS: METOPROLOL TARTRATE 50 MG TAB PO SCH ×2 (11:05→20:31)
[2017-09-01] MEDS: INSULIN ASPART SUPPLEMENTAL SCALE SQ SCH ×4 (12:00→20:46)
[2017-09-01] MEDS: INSULIN DETEMIR 100 UNITS/ML VIAL SQ SCH ×2 (12:12→20:47)
[2017-09-01 14:46] LABS: BICARBONATE 24.5 MEQ/L (21.0-32.0); MAGNESIUM 1.7 MG/DL (1.5-2.5); POTASSIUM 3.3 MEQ/L (3.5-5.1)
[2017-09-01] MEDS ORDERED: POTASSIUM CHLORIDE 20 MEQ CONTROLLED RELEASE TAB PO ONE (15:45)
[2017-09-01] MEDS: SODIUM CHLORIDE 0.9% FLUSH 10 ML FLUSH IV FLUSH SCH ×2 (15:55→20:32)
[2017-09-01] MEDS ORDERED: NS + KCL 20 MEQ INJ 1,000 ML IV SCH (16:00)
--- NOTE | 2017-09-01 19:26 | EKG ---
Date Performed: 08/31/2017 Time Performed: 23:22:04 PTAGE: 77 years EKG: Sinus rhythm Possible inferior infarct - age undetermined Abnormal ECG PREVIOUS TRACING : 08/30/2017 20.19 Compared to prior tracing no significant change DOCTOR: Dave Corea Interpretating Date/Time 09/01/2017 19:24:17
[2017-09-01] MEDS: ONDANSETRON HCL 4 MG/2 ML VIAL IVP PRN (20:27)
[2017-09-01] MEDS: ATORVASTATIN 40 MG TAB PO SCH (20:31)
[2017-09-01] MEDS: GABAPENTIN 300 MG CAP PO SCH (20:31)
[2017-09-02] VITALS (26 sets, daily range): BP systolic 111–164; BP diastolic 46–70; PULSE 70–94; RESP 16–18; TEMP 97.9–98.8; O2SAT 91–95
[2017-09-02] MEDS: LEVOTHYROXINE SODIUM 112 MCG TAB PO SCH (05:45)
[2017-09-02] MEDS: LEVOTHYROXINE SODIUM 25 MCG TAB PO SCH (05:46)
[2017-09-02 07:08] LABS: BICARBONATE 21.6 MEQ/L (21.0-32.0); POTASSIUM 3.7 MEQ/L (3.5-5.1)
--- NOTE | 2017-09-02 07:56 | HHI.PR ---
Subjective Remarks pt daughter at bedside pt reports diarrhea yesterday after being given dulcolax. also the night before she was sick with n/d from her dinner Objective Vitals heart reg lung cta abd s/nt ext no edema Vital Signs Date Time Temp Pulse Resp B/P (MAP) Pulse Ox O2 Delivery O2 Flow Rate FiO2 09/02/17 04:00 98.3 74 18 119/46 (70) 94 09/02/17 04:00 80 09/02/17 00:00 73 09/02/17 00:00 98.2 74 18 111/52 (71) 95 09/01/17 20:00 Room Air 09/01/17 20:00 81 09/01/17 20:00 98.2 87 20 157/65 (95) 94 09/01/17 18:00 131/55 (80) 09/01/17 18:00 74 09/01/17 17:00 68 09/01/17 16:00 72 09/01/17 15:00 70 09/01/17 15:00 98.3 72 18 97/45 (62) 93 09/01/17 14:00 70 09/01/17 13:00 64 09/01/17 12:00 64 09/01/17 11:30 98.2 72 18 114/57 (76) 90 09/01/17 11:00 74 09/01/17 10:00 76 09/01/17 09:00 80 09/01/17 08:00 76 Result Diagram: 08/31/17 0615 09/02/17 0440 A/P Problem List: (1) Hypertensive urgency ICD Codes: I16.0 - Hypertensive urgency Status: Acute Plan: htn urgency headache ckd 3. niurka. could be prerenal. dm hypothyroidism gentle ivf cont procardia. she is on metoprolol also. hold clonidine/lisinipril this AM due to low bp and niurka dc laxative consult her critical power install technician. I think pt now says her BL cr is 1.5. niurka could be related to dehydration/diarrhea. she has had severe htn and bp med adjustment with tight control over last 24hrs. hold d/c and recheck bmp renal u/s (2) Diabetes mellitus ICD Codes: E11.9 - Type 2 diabetes mellitus without complications Status: Chronic (3) Hypothyroidism ICD Codes: E03.9 - Hypothyroidism, unspecified Status: Chronic (4) Hyperlipidemia ICD Codes: E78.5 - Hyperlipidemia, unspecified Status: Chronic (5) CKD (chronic kidney disease) ICD Codes: N18.9 - Chronic kidney disease, unspecified Status: Chronic (6) IBS (irritable bowel syndrome) ICD Codes: K58.9 - Irritable bowel syndrome without diarrhea Status: Chronic Tony Vernon MD Sep 02, 2017 07:56
[2017-09-02] MEDS: INSULIN ASPART SUPPLEMENTAL SCALE SQ SCH ×4 (08:00→21:00)
--- NOTE | 2017-09-02 08:57 | RADRPT ---
EXAM DATE/TIME: 09/02/2017 07:53 [place] COMPARISON: No previous studies available for comparison. EXTERNAL COMPARISON : [facility], CT ABDOMEN & PELVIS W/O CONTRAST January 19, 2016. [facility], CT AB DOMEN & PELVIS W/O CONTRAST February 27, 2007. [facility], US BILATERAL RENAL January 16, 2007 . INDICATIONS : Abnormal lab values. MEDICAL HISTORY : Hypercholesterolemia. Hypertension. Hypothyroidism. Migraine. Congestive heart failure. 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 Arthritis. Anemia. Diabetes. Gastroparesis. SURGICAL HISTORY : Tonsillectomy. Hysterectomy. Cardiac catheterization. ENCOUNTER: Initial ACUITY: 1 day PAIN SCORE: 0/10 LOCATION: Bilateral flank MEASUREMENTS: RIGHT KIDNEY: 10.3 x 5.5 x 4.7 cm LEFT KIDNEY: 9.5 x 5.6 x 4.7 cm FINDINGS: The kidneys demonstrates increased echogenicity of the cortex compatible with medical renal disease. No hydronephrosis or mass lesions are identified. The bladder appears normal. No wall thickening or i ntraluminal masses are identified. CONCLUSION: 1. Echogenic kidneys bilaterally compatible with medical renal disease. Jamie Campos MD on September 02, 2017 at 8:56 Board Certified Radiologist. This report was verified electronically.
[2017-09-02] MEDS: LINZESS 290 MCG PO SCH (09:00)
[2017-09-02] MEDS: INSULIN DETEMIR 100 UNITS/ML VIAL SQ SCH ×2 (09:45→22:32)
[2017-09-02] MEDS: PANTOPRAZOLE SOD 20 MG DELAYED RELEASE TAB PO SCH (09:46)
[2017-09-02] MEDS: NIFEdipine 60 MG SUSTAINED RELEASE TAB PO SCH ×2 (09:46→21:38)
[2017-09-02] MEDS: ACETAMINOPHEN 325 MG TAB PO PRN ×2 (09:46→21:38)
[2017-09-02] MEDS: METOPROLOL TARTRATE 50 MG TAB PO SCH ×2 (09:46→21:36)
[2017-09-02] MEDS: ALLOPURINOL 300 MG TAB PO SCH (09:47)
[2017-09-02] MEDS: ASPIRIN 81 MG CHEW TAB CHEW SCH (09:47)
[2017-09-02] MEDS: GLIMEPIRIDE 4 MG TAB PO SCH ×2 (09:47→21:37)
[2017-09-02] MEDS: SODIUM CHLORIDE 0.9% FLUSH 10 ML FLUSH IV FLUSH SCH ×2 (09:47→21:39)
[2017-09-02] MEDS: SODIUM CHLOR 0.9% 1000 ML INJ 1,000 ML IV SCH ×2 (13:50→21:42)
--- NOTE | 2017-09-02 14:24 | MB ---
cc: KIP MCMAHON MD DATE OF CONSULTATION: 09/02/2017 REASON FOR CONSULTATION Chronic kidney disease and hypertension with a very high blood pressure. HISTORY OF PRESENT ILLNESS This is A 77-year-old female known to me from before with past medical history of hypertension, diabetes mellitus. He started on the chronic kidney disease, hypothyroidism, and peripheral neuropathy, hyperlipidemia and irritable bowel syndrome was admitted with severe hypertension and headache. I was called to see the patient for chronic kidney disease and hypertension. The patient has history of chronic kidney disease and she has been following with me in the office I saw her about a week ago and her systolic blood pressure was 150-160 at that time. The patient claims to be compliant with the medications and recently she saw her byproducts supervisor and her levothyroxine was increased from 112 to 137, other than that she has been taking the same medications. On Friday she noted her blood pressure systolic is more than 200 on many readings. She called [facility] nurse and advised to go to the emergency room when she came to the emergency room her blood pressure highest recorded was 272/135 and then 273/153. Her creatinine has been in the range of 1.3 when she came in and then now has gone up to 1.8. She has mild nausea at that time. Now she is feeling better. She has had headache which is chronic and according to her could be because of the sinus problem that she has and still she has the same headache. There was no history of dizziness. No shortness of breath. No chest pain. She did not have any episodes of such high blood pressure before in the past. Her blood pressure has been reasonably well-controlled. PAST MEDICAL HISTORY 1. Hypertension 2. Diabetes mellitus 3. Chronic kidney disease 4. Hypothyroidism. 5. Hyperlipidemia. 6. Chronic irritable bowel syndrome 7. Peripheral neuropathy. PAST SURGICAL HISTORY 1. Hysterectomy. 2. Oophorectomy. 3. Tonsillectomy. 4. Adenoidectomy. REVIEW OF SYSTEMS The patient has generalized weakness, feeling tired. She has mild headache. There is no dizziness. No shortness of breath. No chest pain. No palpitation. No nausea or vomiting now she has mild nausea when she came in here and vomited once at home before the day before she came in here. There is no abdominal pain and not having severe diarrhea. No dysuria, hematuria. SOCIAL HISTORY Patient lives with her . There is no history of smoking or alcoholism. FAMILY HISTORY: Family history is noncontributory. ALLERGIES 1. SULFA 2. DICLOFENAC 3. ETODOLAC 4. FLURBIPROFEN 5. IBUPROFEN 6. KETOROLAC 7. NAPROXEN 8. ASPIRIN 9. OXAPROZIN 10. AMOXICILLIN 11. CEFACLOR 12. CIPROFLOXACIN 13. CLARITHROMYCIN 14. CLAVULANIC ACID MEDICATIONS Currently she is on following medications. 1. Normal saline at 84 an hour. This was just started this morning 2. Amaryl 4 mg b.i.d. 3. Lopressor 100 mg b.i.d. 4. Levemir 10 units Subcu b.i.d. 5. Allopurinol 300 mg once a day. 6. Aspirin 81 mg daily. 7. Protonix 20 mg once a day. 8. Levothyroxine 112 mcg once a day, then 25 mcg once a day. 9. Lipitor 40 mg daily. 10. Neurontin 300 mg q.h.s. 11. Procardia XL 60 mg q. 12-hour. 12. Insulin as far as sliding scale. 13. Zofran as needed. 14. Tylenol as needed 15. Milk of Magnesia as needed. PHYSICAL EXAMINATION IN GENERAL: The patient is awake, alert. She is sitting in the chair not in acute distress. VITAL SIGNS: The last blood pressure is 119/46 blood pressure has been reasonably controlled so and for the last 48 hours, pulse is 76-82 temperature 98.3, oxygen saturation 94% on room air. HEAD, EYES, EARS, NOSE, AND THROAT: Pupils are constricted. Nonicteric sclera. Conjunctivae normal. NECK: Supple. JVD is not elevated. LUNGS: The patient has bilateral good air entry with occasional wheezing. HEART: S1, S2, regular rhythm. ABDOMEN: Abdomen is soft lax. There is no tenderness. Bowel sounds positive. EXTREMITIES: She has mild edema. LABORATORY FINDINGS: Investigation WBC count is 11.5 with hemoglobin of 12.4 and platelet count of 235, sodium 141, potassium 3.7, chloride 110, bicarb 21.6, BUN 25, creatinine 1.8, glucose random is 149. Troponin I was 0.08. IMAGING STUDIES The patient had ultrasound of the kidneys done today and it showed both kidneys are normal in size and echogenic compatible with medical renal disease. CT scan of the brain was done on admission which was negative. Chest x-ray was done which shows a small non consolidative infiltrate in the medial left lower lung. ASSESSMENT/PLAN 1. Chronic kidney disease with some acute worsening. 2. Hypertension with hypertensive urgency on admission. 3. Hypothyroidism 4. Diabetes mellitus 5. Hyperlipidemia. 6. Irritable bowel syndrome. The patient has very high blood pressure when she came in she did not have any episodes of severe hypertension in the past. Her kidney size looked normal on the ultrasound. I will do some workup for secondary hypertension including sending the and aldosterone level and also get the MRA of the renal arteries for the increase in the creatinine possibly she has some damage to the kidney because of the severe hypertension or possibility of some prerenal azotemia. She is started on IV fluid. She has underlying chronic kidney disease because of hypertensive renal disease which was documented on the biopsy of the kidney which was done in 2006. Thank you for the consultation. I will follow the patient while she is in the hospital. MD GODWIN Sexton/seth /10:58 AM /2:10 PM
[2017-09-02] MEDS: GABAPENTIN 300 MG CAP PO SCH (21:37)
[2017-09-02] MEDS: ATORVASTATIN 40 MG TAB PO SCH (21:37)
[2017-09-02] MEDS: ONDANSETRON HCL 4 MG/2 ML VIAL IVP PRN (21:39)
[2017-09-03] VITALS (25 sets, daily range): BP systolic 130–154; BP diastolic 57–90; PULSE 62–92; RESP 14–16; TEMP 98–98.9; O2SAT 93–98
--- NOTE | 2017-09-03 07:45 | HHI.PR ---
Subjective Remarks had some ant cp last night. she thought it was her costochondritis Objective Vitals heart reg lung cta abd s.nt ext no edema Vital Signs Date Time Temp Pulse Resp B/P (MAP) Pulse Ox O2 Delivery O2 Flow Rate FiO2 09/03/17 06:00 72 09/03/17 05:00 68 09/03/17 04:00 68 09/03/17 03:00 70 09/03/17 03:00 98.0 72 14 130/63 (85) 93 09/03/17 02:00 74 09/03/17 01:00 80 09/03/17 00:00 76 09/02/17 23:00 84 09/02/17 23:00 86 16 164/70 (101) 94 09/02/17 22:00 90 09/02/17 21:00 88 09/02/17 20:00 95 Room Air 09/02/17 20:00 94 09/02/17 19:45 98.3 92 16 151/62 (91) 95 09/02/17 19:00 86 09/02/17 18:00 84 09/02/17 17:00 80 09/02/17 16:11 98.2 75 18 131/59 (83) 92 09/02/17 16:11 92 Room Air 09/02/17 16:00 76 09/02/17 15:00 78 09/02/17 14:00 82 09/02/17 13:00 70 09/02/17 12:00 78 09/02/17 12:00 97.9 76 18 129/57 (81) 93 09/02/17 11:00 72 09/02/17 10:00 72 09/02/17 09:00 72 09/02/17 08:00 78 Result Diagram: 08/31/17 0615 09/02/17 0440 A/P Problem List: (1) Hypertensive urgency ICD Codes: I16.0 - Hypertensive urgency Status: Acute Plan: htn urgency headache ckd 3. niurka. could be prerenal. dm hypothyroidism gentle ivf cont procardia. she is on metoprolol also. hold clonidine/lisinipril t due to low bp and niurka dc laxative consulted her rn occupational. I think pt now says her BL cr is 1.5. niurka could be related to dehydration/diarrhea. she has had severe htn and bp med adjustment with tight control over last 24hrs. bmp today pending. if cr trending down then d/c ivf. (2) Diabetes mellitus ICD Codes: E11.9 - Type 2 diabetes mellitus without complications Status: Chronic (3) Hypothyroidism ICD Codes: E03.9 - Hypothyroidism, unspecified Status: Chronic (4) Hyperlipidemia ICD Codes: E78.5 - Hyperlipidemia, unspecified Status: Chronic (5) CKD (chronic kidney disease) ICD Codes: N18.9 - Chronic kidney disease, unspecified Status: Chronic (6) IBS (irritable bowel syndrome) ICD Codes: K58.9 - Irritable bowel syndrome without diarrhea Status: Chronic Tony Vernon MD Sep 03, 2017 07:45
[2017-09-03] MEDS: INSULIN ASPART SUPPLEMENTAL SCALE SQ SCH ×4 (08:00→21:45)
[2017-09-03] MEDS: ACETAMINOPHEN 325 MG TAB PO PRN ×2 (08:58→15:36)
[2017-09-03] MEDS: LEVOTHYROXINE SODIUM 25 MCG TAB PO SCH (08:59)
[2017-09-03] MEDS: LEVOTHYROXINE SODIUM 112 MCG TAB PO SCH (08:59)
[2017-09-03] MEDS: GLIMEPIRIDE 4 MG TAB PO SCH ×2 (08:59→21:29)
[2017-09-03] MEDS: LINZESS 290 MCG PO SCH (09:00)
[2017-09-03] MEDS: PANTOPRAZOLE SOD 20 MG DELAYED RELEASE TAB PO SCH (09:00)
[2017-09-03] MEDS: NIFEdipine 60 MG SUSTAINED RELEASE TAB PO SCH ×2 (09:00→21:29)
[2017-09-03] MEDS: METOPROLOL TARTRATE 50 MG TAB PO SCH ×2 (09:00→21:29)
[2017-09-03] MEDS: ALLOPURINOL 300 MG TAB PO SCH (09:01)
[2017-09-03] MEDS: ASPIRIN 81 MG CHEW TAB CHEW SCH (09:01)
[2017-09-03] MEDS: INSULIN DETEMIR 100 UNITS/ML VIAL SQ SCH ×2 (09:02→21:45)
[2017-09-03] MEDS: SODIUM CHLORIDE 0.9% FLUSH 10 ML FLUSH IV FLUSH SCH ×2 (09:03→21:29)
[2017-09-03 10:33] LABS: BICARBONATE 20.4 MEQ/L (21.0-32.0); POTASSIUM 3.8 MEQ/L (3.5-5.1)
[2017-09-03] MEDS: SODIUM CHLOR 0.9% 1000 ML INJ 1,000 ML IV SCH ×2 (11:42→23:30)
[2017-09-03] MEDS ORDERED: FUROSEMIDE 20 MG TAB PO ONE (18:00)
--- NOTE | 2017-09-03 18:18 | HHI.NPPN ---
Subjective History of Present Illness 77-year-old female known to me from before with past medical history of hypertension, diabetes mellitus. He started on the chronic kidney disease, hypothyroidism, and peripheral neuropathy, hyperlipidemia and irritable bowel syndrome was admitted with severe hypertension and headache. I was called to see the patient for chronic kidney disease and hypertension. The patient has history of chronic kidney disease and she has been following with me in the office I saw her about a week ago and her systolic blood pressure was 150-160 at that time. Additional Remarks Patient is alert, has increase swelling of legs and arms, and has mild SOB. Review of Systems General Constitutional: Fatigue Cardiovascular Cardiac: Edema, DASILVA Objective Data Data Vital Signs Date Time Temp Pulse Resp B/P (MAP) Pulse Ox O2 Delivery O2 Flow Rate FiO2 09/03/17 15:12 98.7 80 16 135/60 (85) 95 09/03/17 12:15 81 09/03/17 11:00 81 09/03/17 11:00 98.0 81 16 138/57 (84) 93 09/03/17 10:31 78 09/03/17 09:00 80 09/03/17 08:00 78 09/03/17 07:00 98.0 77 16 133/90 (104) 98 09/03/17 07:00 77 09/03/17 06:00 72 09/03/17 05:00 68 09/03/17 04:00 68 09/03/17 03:00 70 09/03/17 03:00 98.0 72 14 130/63 (85) 93 09/03/17 02:00 74 09/03/17 01:00 80 09/03/17 00:00 76 09/02/17 23:00 84 09/02/17 23:00 86 16 164/70 (101) 94 09/02/17 22:00 90 09/02/17 21:00 88 09/02/17 20:00 95 Room Air 09/02/17 20:00 94 09/02/17 19:45 98.3 92 16 151/62 (91) 95 09/02/17 19:00 86 -: 08/31/17 0615 09/03/17 0937 Physical Exam General Appearance: No Acute Distress, Comfortable Eyes Eye Exam: Pupils Equal Throat Throat Exam: Oral Mucosa Yeoman & Moist Neck Neck Exam: Neck Supple Pulmonary Resp Exam: Breath Sounds Equal, No Distress, Rhonchi, Decreased Bases Cardiology CV Exam: Regular, Normal Sinus Rhythm Gastrointestinal/Abdomen GI Exam: Soft, Non-Tender, Bowel Sounds Present Extremeties Extremities Exam: Moderate Edema Neurologic Neuro Exam: Alert, Awake, Oriented Psychiatric Psych Exam: Appropriate Responses Assessment/Plan Assessment Summary: Fluid/Volume Overload, CHF, Hypertension, CKD Stage IV Problem List: (1) Hypothyroidism ICD Codes: E03.9 - Hypothyroidism, unspecified Status: Chronic (2) Hyperlipidemia ICD Codes: E78.5 - Hyperlipidemia, unspecified Status: Chronic (3) Diabetes mellitus ICD Codes: E11.9 - Type 2 diabetes mellitus without complications Status: Chronic (4) Hypertensive urgency ICD Codes: I16.0 - Hypertensive urgency Status: Acute (5) CKD (chronic kidney disease) ICD Codes: N18.9 - Chronic kidney disease, unspecified Status: Chronic Plan Patient has Chronic kidney disease due to Hypertensive renal disease. She had Kidney Biopsy done 10 years ago. Now the Creatinine is 1.7-1.8, close to her baseline. Renin/Ventura. done and pending. BP is controlled. Cannot do MRA of renal arteries due to GFR being less than 30 ml/min. Add Lasix for edema and fluid retention. If GFR improve, above 30 ml/min., will consider MRA. Donya Rivera MD Sep 03, 2017 18:18
[2017-09-03] MEDS: ATORVASTATIN 40 MG TAB PO SCH (21:29)
[2017-09-03] MEDS: GABAPENTIN 300 MG CAP PO SCH (21:29)
[2017-09-04] VITALS: PULSE 92
[2017-09-04 02:58] VITALS: BP 169/71; PULSE 97; RESP 20; TEMP 99.2; O2SAT 95
[2017-09-04] MEDS: ACETAMINOPHEN 325 MG TAB PO PRN (03:02)
[2017-09-04] MEDS: ONDANSETRON HCL 4 MG/2 ML VIAL IVP PRN (03:02)
[2017-09-04 03:19] VITALS: BP 169/71; PULSE 97; RESP 20; TEMP 99.2; O2SAT 95
[2017-09-04 05:00] VITALS: PULSE 90
[2017-09-04 06:00] VITALS: PULSE 84
[2017-09-04] MEDS: SODIUM CHLOR 0.9% 1000 ML INJ 1,000 ML IV SCH (07:40)
[2017-09-04] MEDS: INSULIN ASPART SUPPLEMENTAL SCALE SQ SCH (08:00)
[2017-09-04 08:44] VITALS: BP 129/58; PULSE 80; RESP 17; TEMP 97.5; O2SAT 93
--- NOTE | 2017-09-04 08:56 | HHI.PR ---
Subjective Remarks eager for d/c c/o edema better with her allanix. Objective Vitals heart reg lung cta abd s/nt ext no edema Vital Signs Date Time Temp Pulse Resp B/P (MAP) Pulse Ox O2 Delivery O2 Flow Rate FiO2 09/04/17 08:44 97.5 80 17 129/58 (81) 93 09/04/17 06:00 84 09/04/17 05:44 14 09/04/17 05:00 90 09/04/17 03:19 99.2 97 20 169/71 (103) 95 09/04/17 00:00 92 09/03/17 23:00 92 14 137/57 (83) 94 09/03/17 23:00 90 09/03/17 22:00 90 09/03/17 21:00 86 09/03/17 20:00 88 09/03/17 20:00 95 Room Air 09/03/17 19:00 98.9 89 16 154/72 (99) 95 09/03/17 19:00 84 09/03/17 18:00 92 09/03/17 17:00 62 09/03/17 16:00 76 09/03/17 15:12 98.7 80 16 135/60 (85) 95 09/03/17 15:00 76 09/03/17 14:00 78 09/03/17 13:00 82 09/03/17 12:15 81 09/03/17 11:00 81 09/03/17 11:00 98.0 81 16 138/57 (84) 93 09/03/17 10:31 78 09/03/17 09:00 80 Result Diagram: 08/31/17 0615 09/03/17 0937 A/P Problem List: (1) Hypertensive urgency ICD Codes: I16.0 - Hypertensive urgency Status: Acute Plan: htn urgency headache ckd 3. niurka. could be prerenal. dm hypothyroidism gentle ivf. stop cont procardia. she is on metoprolol also. hold clonidine/lisinipril due to low bp and niurka dc laxative consulted her mixing tumbler operator. I think pt now says her BL cr is 1.5. niurka could be related to dehydration/diarrhea. she has had severe htn and bp med adjustment with tight control over last 24hrs. bmp pending. pt wants to go home. bp controlled. stop ivf. cont 2 bp meds. add back if needed per nephrology. bmp check on Friday. unable to do mra due to poor gfr. f/u pending blood work with renal in office. (2) Diabetes mellitus ICD Codes: E11.9 - Type 2 diabetes mellitus without complications Status: Chronic (3) Hypothyroidism ICD Codes: E03.9 - Hypothyroidism, unspecified Status: Chronic (4) Hyperlipidemia ICD Codes: E78.5 - Hyperlipidemia, unspecified Status: Chronic (5) CKD (chronic kidney disease) ICD Codes: N18.9 - Chronic kidney disease, unspecified Status: Chronic (6) IBS (irritable bowel syndrome) ICD Codes: K58.9 - Irritable bowel syndrome without diarrhea Status: Chronic Tony Vernon MD Sep 04, 2017 08:56
[2017-09-04] MEDS: LINZESS 290 MCG PO SCH (09:00)
[2017-09-04] MEDS: INSULIN DETEMIR 100 UNITS/ML VIAL SQ SCH (09:00)
[2017-09-04] MEDS ORDERED: NIFE60TA8 PO (09:00)
[2017-09-04] MEDS ORDERED: FUROSEMIDE 20 MG TAB PO SCH (09:00)
[2017-09-04] MEDS: SODIUM CHLORIDE 0.9% FLUSH 10 ML FLUSH IV FLUSH SCH (09:00)
--- NOTE | 2017-09-04 09:00 | HHI.DCPOC ---
Discharge Care Plan Diagnosis: (1) Hypertensive urgency (2) CKD (chronic kidney disease) (3) Hypothyroidism (4) Diabetes mellitus Goals to Promote Your Health * To prevent worsening of your condition and complications * To maintain your health at the optimal level Directions to Meet Your Goals Take your medications as prescribed Follow your dietary instruction Follow activity as directed Keep your appointments as scheduled Take your immunizations and boosters as scheduled If your symptoms worsen call your PCP, if no PCP go to Urgent Care Center or Emergency Room Smoking is Dangerous to Your Health. Avoid second hand smoke Call the 24-hour hour crisis hotline for domestic abuse at Tony Vernon MD Sep 04, 2017 09:00
[2017-09-04] MEDS: LEVOTHYROXINE SODIUM 25 MCG TAB PO SCH (09:11)
[2017-09-04] MEDS: METOPROLOL TARTRATE 50 MG TAB PO SCH (09:11)
[2017-09-04] MEDS: ASPIRIN 81 MG CHEW TAB CHEW SCH (09:12)
[2017-09-04] MEDS: GLIMEPIRIDE 4 MG TAB PO SCH (09:12)
[2017-09-04] MEDS: PANTOPRAZOLE SOD 20 MG DELAYED RELEASE TAB PO SCH (09:12)
[2017-09-04] MEDS: NIFEdipine 60 MG SUSTAINED RELEASE TAB PO SCH (09:12)
[2017-09-04] MEDS: ALLOPURINOL 300 MG TAB PO SCH (09:12)
[2017-09-04] MEDS: LEVOTHYROXINE SODIUM 112 MCG TAB PO SCH (09:12)
[2017-09-04 10:34] LABS: BICARBONATE 19.3 MEQ/L (21.0-32.0); POTASSIUM 3.7 MEQ/L (3.5-5.1)
--- NOTE | 2017-09-07 15:26 | HHI.DS ---
Discharge Summary Admission Date Aug 30, 2017 at 21:30 Discharge Date: Sep 04, 2017 Admitting Diagnosis hypertensive urgency (1) Hypertensive urgency Diagnosis: Principal ICD Codes: I16.0 - Hypertensive urgency Status: Acute (2) Diabetes mellitus Diagnosis: Secondary ICD Codes: E11.9 - Type 2 diabetes mellitus without complications Status: Chronic (3) Hypothyroidism Diagnosis: Secondary ICD Codes: E03.9 - Hypothyroidism, unspecified Status: Chronic (4) Hyperlipidemia Diagnosis: Secondary ICD Codes: E78.5 - Hyperlipidemia, unspecified Status: Chronic (5) CKD (chronic kidney disease) Diagnosis: Secondary ICD Codes: N18.9 - Chronic kidney disease, unspecified Status: Chronic (6) IBS (irritable bowel syndrome) Diagnosis: Secondary ICD Codes: K58.9 - Irritable bowel syndrome without diarrhea Status: Chronic Brief History This is a 77 year old female patient with a past medical history which includes HTN, DM, peripheral neuropathy, hypothyroidism, gout, hyperlipidemia, CKD and IBS. Patient was seen by her PCP Dr. Marc and was told to keep a BP log. At home patient SBP has been running 180-200. Patient reports that she had called the [facility] nurse and was told to proceed to the ER. Patient had chest pain last night which she describes tight band across her chest. There was no associated SOB, diaphoresis, nausea or vomiting. Patient also has left- sided chest discomfort which is reproducible with palpation of chest wall. She also says she had a headache which is improving and mild at this point. She takes metoprolol which was recently increased from 50-100 twice a day by her bird tender Dr. Corea, lisinopril 20 mg PO daily and clonidine 0.1 mg BID. She says she is taking clonidine for years. CBC/BMP: 09/04/17 0923 Hospital Course A/P Problem List: (1) Hypertensive urgency htn urgency headache ckd 3. niurka. prerenal. dm hypothyroidism Pt was prescribed procardia and continued on metoprolol with adequate bp control Her lisinipril and clonidine were stopped due to niurka/ckd and lower bp. She was given ivf and lasix held for a day due to niurka. Her correctional nurse was consulted and agreed the niurka/ckd 3 was probably prerenal as pt was having some diarrhea. It was at her outpt baseline on d/c according to nephrology who will f/u closely and adjust her bp meds further as needed. also there were pending labs on d/c including secondary htn bloodwork. unable to do cta or mra renal arteries due to low gfr. Updated pt an daughter extensively at bedside. (2) Diabetes mellitus (3) Hypothyroidism 4) Hyperlipidemia (5) CKD (chronic kidney disease) (6) IBS (irritable bowel syndrome) Pt Condition on Discharge: Stable Discharge Disposition: Discharge Home Discharge Instructions DIET: Follow Instructions for: Heart Healthy Diet Activities you can perform: Regular-No Restrictions Follow up Referrals: Nephrology - [address] olmstead PCP Follow-up - [address] lucina marc New Medications: Nifedipine ER 24 HR (Nifedipine ER 24 HR) 60 Mg Tab 60 MG PO Q12HR for blood pressure, #60 TAB Continued Medications: Allopurinol (Allopurinol) 300 Mg Tab 300 MG PO DAILY for Gout, #30 TAB 0 Refills Aspirin (Aspirin) 81 Mg Chew 81 MG CHEW DAILY, TAB 0 Refills Atorvastatin (Lipitor) 40 Mg Tab 40 MG PO HS for Cholesterol Management, #30 TAB 0 Refills Fluticasone Nasal [place] (Flonase Nasal [place]) 50 Mcg/Act [place] 50 MCG EACH NARE BID for Allergies, #1 BOTTLE 0 Refills Furosemide (Furosemide) 20 Mg Tab 20 MG PO DAILY, #30 TAB 0 Refills Gabapentin (Gabapentin) 300 Mg Cap 300 MG PO HS, #30 CAP 0 Refills Glimepiride (Amaryl) 4 Mg Tab 4 MG PO BID for Blood Sugar Management, #60 TAB 0 Refills Take with breakfast or the first main meal Insulin Aspart Inj (Novolog Inj) 1,000 Unit/10 Ml Vial 25 UNITS SQ DIRECTED for Blood Sugar Management, #10 ML 0 Refills Insulin Detemir Inj (Levemir Inj) 1,000 unit/ 10 ML Vial 40 UNITS SQ DAILY@0600 for Blood Sugar Management, VIAL 0 Refills Do not mix with any other Insulin. Insulin Detemir Inj (Levemir Inj) 1,000 unit/ 10 ML Vial 40 UNITS SQ HS for Blood Sugar Management, VIAL 0 Refills Do not mix with any other Insulin. Levothyroxine (Levothyroxine) 112 Mcg Tab 137 MCG PO DAILY, #30 TAB 0 Refills Linaclotide (Linzess) 290 Mcg Cap 290 MCG PO DAILY, CAP 0 Refills Metoprolol Tartrate (Metoprolol Tartrate) 50 Mg Tab 100 MG PO BID, #60 TAB 0 Refills Pantoprazole (Protonix) 20 Mg Tab 20 MG PO DAILY for Reflux, #30 TAB 0 Refills Discontinued Medications: Clonidine (Clonidine) 0.1 Mg Tab 0.1 MG PO BID for Blood Pressure Management, #60 TAB 0 Refills Lisinopril (Lisinopril) 20 Mg Tab 20 MG PO DAILY, #30 TAB 0 Refills Tony Vernon MD Sep 07, 2017 15:26
== END 2017-09-04 11:56 | disposition home or self-care (01) | DRG 305 ==
LOC: NEPE 18:40 → NEDA 21:30 → HCIS 08-31 00:14
PROVIDERS: ADMIT Hospitalist; ATTEND Hospitalist
DX: I16.0 Hypertensive urgency (principal); N17.9 Acute kidney failure, unspecified; E11.42 Type 2 diabetes mellitus with diabetic polyneuropathy; Z79.84 Long term (current) use of oral hypoglycemic drugs; Z79.4 Long term (current) use of insulin; N18.3 Chronic kidney disease, stage 3 (moderate); I12.9 Hypertensive chronic kidney disease with stage 1 through stage 4 chronic kidney disease, or unspecified chronic kidney disease; E03.9 Hypothyroidism, unspecified; M10.9 Gout, unspecified; E78.5 Hyperlipidemia, unspecified; K58.9 Irritable bowel syndrome, unspecified; M94.0 Chondrocostal junction syndrome [Tietze]; R51 Headache; Z79.82 Long term (current) use of aspirin
CPT/HCPCS: 70450; 71010; 76775; 80048; 80053; 82088; 82948; 83735; 84244; 84300; 84484; 85025; 93005; 96374; J0360; J1815; J2405; J3480; J7030

== ENCOUNTER 2018-05-11 16:15 | Observation (INO) | payer MEDICARE ==
[~2018-05-11] VITALS: Ht 160 cm; Wt 90.0 kg
[~2018-05-11 16:15] MED LIST changes: +ASPI-516 CHEW; -ASPI81CH CHEW; -CLON0.1T PO; -LACT1TAB2; +LINA290C PO; -LISI-515 PO; +NIFE60TA8 PO; -PERC5TAB12 PO
[2018-05-11 16:40] VITALS: BP 149/92; PULSE 73; RESP 16; TEMP 98.7; O2SAT 92
[2018-05-11 17:21] VITALS: BP 128/62; PULSE 88
[2018-05-11] MEDS ORDERED: LEVEMIR SQ ×2 (17:29)
[2018-05-11] MEDS ORDERED: NOVORP2 SQ (17:29)
[2018-05-11] MEDS ORDERED: COZA25TA PO (17:29)
[2018-05-11] MEDS ORDERED: HYDR-3516 PO (17:30)
[2018-05-11 17:31] VITALS: RESP 18; O2SAT 96
--- NOTE | 2018-05-11 17:34 | PD ---
HPI Chief Complaint: Chest Pain Time Seen by Provider: 17:16 Travel History International Travel<30 days: No Contact w/Intl Traveler<30days: No Traveled to known affect area: No History of Present Illness HPI 77-year-old female complains of chest pain. Patient states that the chest pain started yesterday. Patient states that the pain was substernal aching pain she be a pain substernally lasted about 5 minutes. Patient states that the pain got better however she still has persistent soreness across the anterior chest wall. Patient states that she has persistent cough and congestion for the past 2 weeks. Patient was seen at local walk-in clinic and given prescription of Z- Tu a week ago. Patient took the Z-Tu as directed. Patient states that she had persistent cough despite the Z-Tu. Patient complained intermittent earache and sore throat also. Patient states the cough is productive. Patient denies any nausea vomiting diarrhea. Patient denies any fever chills. Patient denies any history of CAD. Patient has history hypertension, diabetes, chronic kidney disease. Patient has history of hyperlipidemia. Patient is a non- smoker. On a scale of 1-10 the pain is a 6. PFSH Past Medical History Hx Anticoagulant Therapy: No Anemia: Yes Arthritis: Yes Asthma: No Anxiety: Yes Heart Rhythm Problems: No Cancer: No Cardiac Catheterization: Yes Cardiovascular Problems: Yes High Cholesterol: Yes Chemotherapy: No Chest Pain: Yes Congestive Heart Failure: Yes COPD: No Cerebrovascular Accident: No Diabetes: Yes Patient Takes Glucophage: No Diminished Hearing: Yes (right ear) Endocrine: Yes (hypothyroid) Gastrointestinal Disorders: Yes (ibs, gastroparesis) Glaucoma: No Gout: Yes Genitourinary: Yes (CHRONIC KIDNEY DISEASE--STAGE 3) Headaches: No Hepatitis: No Hiatal Hernia: Yes Hypertension: Yes Immune Disorder: Yes Implanted Vascular Access Dvce: No Musculoskeletal: Yes Neurologic: Yes Psychiatric: No Reproductive: No Respiratory: Yes Migraines: Yes Renal Failure: Yes (stage 3) Seizures: No Thyroid Disease: Yes (HYPO) Triglycerides - High: Yes ?: Not Menopausal: Yes : 4 Para: 4 Past Surgical History Abdominal Surgery: Yes Appendectomy: Yes Cardiac Surgery: No Ear Surgery: No Endocrine Surgery: No Eye Surgery: Yes (cataract) Genitourinary Surgery: Yes Gynecologic Surgery: Yes (1983 HYSTERECTOMY BILATERAL S&O) Hysterectomy: Yes (total) Neurologic Surgery: No Oral Surgery: Yes (AGE 9 T&A) Pacemaker: No Thoracic Surgery: No Tonsillectomy: Yes Other Surgery: Yes Social History Alcohol Use: No Tobacco Use: No Substance Use: No Allergies-Medications (Allergen,Severity, Reaction): Coded Allergies: Sulfa (Sulfonamide Antibiotics) (Unverified Allergy, Severe, GI UPSET, 10/18) diclofenac (Unverified Allergy, Severe, Urinary Freq (Inc/Dec), 05/11/18) KIDNEY FAILURE etodolac (Unverified Allergy, Severe, Urinary Freq (Inc/Dec), 05/11/18) KIDNEY FAILURE flurbiprofen (Unverified Allergy, Severe, Urinary Freq (Inc/Dec), 05/11/18) KIDNEY FAILURE ibuprofen (Unverified Allergy, Severe, Urinary Freq (Inc/Dec), 05/11/18) KIDNEY FAILURE indomethacin (Unverified Allergy, Severe, Urinary Freq (Inc/Dec), 05/11/18) KIDNEY FAILURE ketoprofen (Unverified Allergy, Severe, Urinary Freq (Inc/Dec), 05/11/18) KIDNEY FAILURE ketorolac (Unverified Allergy, Severe, Urinary Freq (Inc/Dec), 05/11/18) KIDNEY FAILURE naproxen (Unverified Allergy, Severe, Urinary Freq (Inc/Dec), 05/11/18) KIDNEY FAILURE oxaprozin (Unverified Allergy, Severe, Urinary Freq (Inc/Dec), 05/11/18) KIDNEY FAILURE aspirin (Unverified Adverse Reaction, Severe, KIDNEY DISEASE, 05/11/18) amoxicillin (Unverified Adverse Reaction, Intermediate, SICK TO STOMACH, ) cefaclor (Unverified Adverse Reaction, Intermediate, SICK TO STOMACH, 05/11) ciprofloxacin (Unverified Adverse Reaction, Intermediate, SICK TO STOMACH , 05/11/18) clarithromycin (Unverified Adverse Reaction, Intermediate, SICK TO STOMACH , 05/11/18) clavulanic acid (Unverified Adverse Reaction, Intermediate, SICK TO STOMACH, 05/11/18) Reported Meds & Prescriptions Reported Meds & Active Scripts Active Nifedipine ER 24 HR (Nifedipine) 60 Mg Tab 60 Mg PO Q12HR Reported Hydrocodone-Acetaminophen 5-325 mg Tab 1 Tab PO DAILY PRN Cozaar (Losartan Potassium) 25 Mg Tab 25 Mg PO DAILY Levemir Inj (Insulin Detemir) 1,000 unit/ 10 ML Vial 15 Units SQ HS Do not mix with any other Insulin. Levemir Inj (Insulin Detemir) 1,000 unit/ 10 ML Vial 10 Units SQ AC BREAKFAST Do not mix with any other Insulin. Novolin R Inj (Insulin Human Regular) 1,000 Unit/10 Ml Vial 15 Units SQ TID Linzess (Linaclotide) 290 Mcg Cap 290 Mcg PO DAILY Protonix (Pantoprazole Sodium) 20 Mg Tab 20 Mg PO DAILY Gabapentin 300 Mg Cap 300 Mg PO HS Metoprolol Tartrate 50 Mg Tab 100 Mg PO BID Flonase Nasal [place] (Fluticasone Nasal [place]) 50 Mcg/Act [place] 50 Mcg EACH NARE BID Levothyroxine (Levothyroxine Sodium) 112 Mcg Tab 137 Mcg PO DAILY Amaryl (Glimepiride) 4 Mg Tab 4 Mg PO BID Take with breakfast or the first main meal Furosemide 20 Mg Tab 20 Mg PO DAILY Dulcolax DR (Bisacodyl) 5 Mg Tabdr 10 Mg PO BID Lipitor (Atorvastatin Calcium) 40 Mg Tab 40 Mg PO HS Aspirin 81 Mg Chew 81 Mg CHEW DAILY Review of Systems General / Constitutional: No: Fever Eyes: No: Visual changes HENT: Positive: Sore Throat, Earache, No: Headaches Cardiovascular: Positive: Chest Pain or Discomfort Respiratory: Positive: Cough, No: Shortness of Breath Gastrointestinal: No: Abdominal Pain Genitourinary: No: Dysuria Musculoskeletal: No: Pain Skin: No Rash Neurologic: No: Weakness Psychiatric: No: Depression Endocrine: No: Polydipsia Hematologic/Lymphatic: No: Easy Bruising Physical Exam Narrative GENERAL: Well-nourished, well-developed patient. SKIN: Focused skin assessment warm/dry. HEAD: Normocephalic. EYES: No scleral icterus. No injection or drainage. NECK: Supple, trachea midline. No JVD or lymphadenopathy. CARDIOVASCULAR: Regular rate and rhythm without murmurs, gallops, or rubs. RESPIRATORY: Breath sounds equal bilaterally. No accessory muscle use. GASTROINTESTINAL: Abdomen soft, non-tender, nondistended. MUSCULOSKELETAL: No cyanosis, or edema. BACK: Nontender without obvious deformity. No CVA tenderness. Neurologic exam normal. Data Data Last Documented VS Vital Signs Date Time Temp Pulse Resp B/P (MAP) Pulse Ox O2 Delivery O2 Flow Rate FiO2 05/11/18 17:31 18 96 Room Air 05/11/18 17:21 88 05/11/18 16:40 98.7 Orders Orders Complete Blood Count With Diff (05/11/18 17:28) Comprehensive Metabolic Panel (05/11/18 17:28) Creatine Kinase (Cpk) (05/11/18 17:28) Troponin I (05/11/18 17:) Prothrombin Time / Inr (Pt) (05/11/18 17:28) Act Partial Throm Time (Ptt) (05/11/18 17:28) Influenzae A/B Antigen (05/11/18 17:28) Chest, Single Ap (05/11/18:) Iv Access Insert/Monitor (05/11/18 17:28) Ecg Monitoring (05/11/18 17:28) Oximetry (05/11/18 17:) Electrocardiogram (05/11/18 16:18) Labs Laboratory Tests Test 05/11/18 17:35 White Blood Count 12.7 TH/MM3 Red Blood Count 4.30 MIL/MM3 Hemoglobin 13.8 GM/DL Hematocrit 41.4 % Mean Corpuscular Volume 96.4 FL Mean Corpuscular Hemoglobin 32.1 PG Mean Corpuscular Hemoglobin Concent 33.3 % Red Cell Distribution Width 12.8 % Platelet Count 297 TH/MM3 Mean Platelet Volume 10.4 FL Neutrophils (%) (Auto) 53.0 % Lymphocytes (%) (Auto) 31.0 % Monocytes (%) (Auto) 12.1 % Eosinophils (%) (Auto) 2.7 % Basophils (%) (Auto) 1.2 % Neutrophils # (Auto) 6.7 TH/MM3 Lymphocytes # (Auto) 3.9 TH/MM3 Monocytes # (Auto) 1.5 TH/MM3 Eosinophils # (Auto) 0.3 TH/MM3 Basophils # (Auto) 0.2 TH/MM3 CBC Comment DIFF FINAL Differential Comment Prothrombin Time 9.5 SEC Prothromb Time International Ratio 0.9 RATIO Activated Partial Thromboplast Time 24.1 SEC Blood Urea Nitrogen 19 MG/DL Creatinine 1.78 MG/DL Random Glucose 205 MG/DL Total Protein 7.6 GM/DL Albumin 3.4 GM/DL Calcium Level 8.9 MG/DL Alkaline Phosphatase 105 U/L Aspartate Amino Transf (AST/SGOT) 20 U/L Alanine Aminotransferase (ALT/SGPT) 32 U/L Total Bilirubin 0.3 MG/DL Sodium Level 143 MEQ/L Potassium Level 3.9 MEQ/L Chloride Level 109 MEQ/L Carbon Dioxide Level 21.7 MEQ/L Anion Gap 12 MEQ/L Estimat Glomerular Filtration Rate 27 ML/MIN Total Creatine Kinase 39 U/L Troponin I LESS THAN 0.02 NG/ML MDM Medical Decision Making Medical Screen Exam Complete: Yes Emergency Medical Condition: Yes Interpretation(s) 1733 PM. EKG shows sinus rhythm nonspecific ST-T wave change. 1901 p.m. Last Impressions Chest X-Ray 05/11/18 1728 Signed Impressions: CONCLUSION: No acute cardiopulmonary disease. CBC WBC 12.7. Normal differential. BUN 19. Creatinine 1.78. GFR 27. Cardiac enzymes are normal. Differential Diagnosis Differential diagnosis including musculoskeletal, bronchitis, pneumonia, angina , CT, PE, pneumothorax. Narrative Course 77-year-old female with chest pain. Patient will be admitted to chest pain center. Diagnosis Primary Impression: Chest pain Qualified Codes: R07.9 - Chest pain, unspecified Admitting Information Admitting Physician Requests: Observation Oliver Bell MD May 11, 2018 17:34
[2018-05-11 17:55] LABS: AUTOMATED NEUTROPHIL # 6.7 TH/MM3 (1.8-7.7); BASOPHIL # 0.2 TH/MM3 (0-0.2); BASOPHIL % 1.2 % (0.0-2.0); EOSINOPHIL # 0.3 TH/MM3 (0-0.4); EOSINOPHIL % 2.7 % (0.0-4.0); HEMATOCRIT 41.4 % (35.0-46.0); HEMOGLOBIN 13.8 GM/DL (11.6-15.3); LYMPHOCYTE # 3.9 TH/MM3 (1.0-4.8); MEAN CELL VOLUME 96.4 FL (80.0-100.0); MEAN CORPUSCULAR HEMOGLOBIN 32.1 PG (27.0-34.0); MEAN CORPUSCULAR HGB CONC 33.3 % (32.0-36.0); MEAN PLATELET VOLUME 10.4 FL (7.0-11.0); MONO % 12.1 % (0.0-8.0); MONOCYTE # 1.5 TH/MM3 (0-0.9); PLATELET COUNT 297 TH/MM3 (150-450); RED CELL DISTRIBUTION WIDTH 12.8 % (11.6-17.2); WHITE BLOOD COUNT 12.7 TH/MM3 (4.0-11.0)
[2018-05-11 18:05] LABS: INTERNATIONAL NORMALIZED RATIO 0.9 RATIO; PROTHROMBIN TIME - PATIENT 9.5 SEC (9.8-11.6)
[2018-05-11 18:12] LABS: ALKALINE PHOSPHATASE 105 U/L (45-117); ALT (GPT) 32 U/L (10-53); TOTAL BILIRUBIN ADULT 0.3 MG/DL (0.2-1.0); TOTAL PROTEIN 7.6 GM/DL (6.4-8.2); TROPONIN I LESS THAN 0.02 NG/ML (0.02-0.05)
[2018-05-11 18:21] LABS: ALBUMIN 3.4 GM/DL (3.4-5.0); AST (GOT) 20 U/L (15-37); BICARBONATE 21.7 MEQ/L (21.0-32.0); BLOOD UREA NITROGEN 19 MG/DL (7-18); CALCIUM 8.9 MG/DL (8.5-10.1); CHLORIDE 109 MEQ/L (98-107); CREATININE 1.78 MG/DL (0.50-1.00); GLOMERULAR FILTRATION RATE 27 ML/MIN (>89); GLUCOSE,RANDOM 205 MG/DL (74-106); SODIUM (NA) 143 MEQ/L (136-145)
--- NOTE | 2018-05-11 18:48 | RADRPT ---
EXAM DATE: 05/11/2018 6:14 PM EDT AGE/SEX: 77 years / Female INDICATIONS: Cough. CLINICAL DATA: This is the patient's initial encounter. Patient reports that signs and symptoms have been present for 1 day and indicates a pain score of 0/10. MEDICAL/SURGICAL HISTORY: . Hypercholesterolemia. Hypertension. Hypothyroidism. Migraine. Conge stive heart failure. Chronic kidney disease, stage III. Arthritis. Anemia. Diabetes. Gastroparesis. . Tonsillectomy. Hysterectomy. Cardiac catheterization. COMPARISON: [facility] – [place], CHEST SINGLE AP, 08/30/2017. . FINDINGS: The lungs are clear without infiltrate, nodule, or mass. There is no appreciable pleural effusion for technique. Slight cardiomegaly has not changed. CONCLUSION: No acute cardiopulmonary disease. Electronically signed by: Yannick Hinojosa MD 05/11/2018 6:47 PM EDT
[2018-05-11 19:06] VITALS: BP 173/77; PULSE 66; RESP 16; O2SAT 96
[2018-05-11] MEDS ORDERED: SODIUM CHLORIDE 0.9% FLUSH 10 ML FLUSH IV FLUSH PRN (19:15)
--- NOTE | 2018-05-11 19:29 | EKG ---
Date Performed: 05/11/2018 Time Performed: 16:18:48 PTAGE: 77 years EKG: Baseline artifact present Sinus rhythm MINIMAL VOLTAGE CRITERIA FOR LVH, CONSIDER NORMAL VARIANT INFERIOR MYOCARDIAL INFARCTION ABNORMAL EC G PREVIONo significant change from prior electrocardiogram. US TRACIN08/31/2017 23.22 DOCTOR: Jonathan Esquivel Interpretating Date/Time 05/11/2018 19:28:56
[2018-05-11] MEDS: SODIUM CHLORIDE 0.9% FLUSH 10 ML FLUSH IV FLUSH SCH (21:00)
[2018-05-11 21:47] LABS: TROPONIN I LESS THAN 0.02 NG/ML (0.02-0.05)
[2018-05-11 22:00] VITALS: BP 182/81; PULSE 75; RESP 18; TEMP 98.6; O2SAT 98
[2018-05-12 01:03] VITALS: BP 155/90; PULSE 81; RESP 16; TEMP 98.6; O2SAT 96
[2018-05-12 01:48] LABS: TROPONIN I LESS THAN 0.02 NG/ML (0.02-0.05)
--- NOTE | 2018-05-12 07:37 | HHI.HP ---
[facility] Primary Care Physician Will Marc MD Chief Complaint Chest pain History of Present Illness 77-year-old female with history of type 2 diabetes, hypertension, and hyperlipidemia presents emergency room for further evaluation of chest pain. Endorses a persistent cough and chest congestion for at least 2 weeks. Prescribed azithromycin 1 week ago, cough and congestion continues. Reports Friday evening she was awoken with sudden, substernal chest soreness. Duration 5 minutes of moderate discomfort, discomfort since lingered intermittent. No associated symptoms of nausea, vomiting, shortness of breath, or dyspnea. No known precipitating or relieving factors. Denies chest discomfort prior to upper respiratory infection 2 weeks ago. Nonproductive cough. Denies similar pain in the past. Review of Systems General: Malaise and upper resp infection x2 weeks. No weakness, fever, chills, or change in appetite. HEENT: No ENG, no dysphasia CV: As stated above. No current chest pain or pressure. No palpitations or dizziness RESP: Nonproductive cough. No SOB, wheeze, or hemoptysis. GI: No nausea, vomiting, or bowel changes. : No dysuria, urgency, or frequency. EXT: No lower leg edema, no paraesthesias MS: No discomfort, injury, or change in ROM NEURO: No change in memory, difficulty with balance, LOC, motor/sensory deficits PSYCH: No anxiety or depression SKIN: No rashes, no concerning lesions Past Family Social History Allergies: Coded Allergies: Sulfa (Sulfonamide Antibiotics) (Unverified Allergy, Severe, GI UPSET, 10/18) diclofenac (Unverified Allergy, Severe, Urinary Freq (Inc/Dec), 05/11/18) KIDNEY FAILURE etodolac (Unverified Allergy, Severe, Urinary Freq (Inc/Dec), 05/11/18) KIDNEY FAILURE flurbiprofen (Unverified Allergy, Severe, Urinary Freq (Inc/Dec), 05/11/18) KIDNEY FAILURE ibuprofen (Unverified Allergy, Severe, Urinary Freq (Inc/Dec), 05/11/18) KIDNEY FAILURE indomethacin (Unverified Allergy, Severe, Urinary Freq (Inc/Dec), 05/11/18) KIDNEY FAILURE ketoprofen (Unverified Allergy, Severe, Urinary Freq (Inc/Dec), 05/11/18) KIDNEY FAILURE ketorolac (Unverified Allergy, Severe, Urinary Freq (Inc/Dec), 05/11/18) KIDNEY FAILURE naproxen (Unverified Allergy, Severe, Urinary Freq (Inc/Dec), 05/11/18) KIDNEY FAILURE oxaprozin (Unverified Allergy, Severe, Urinary Freq (Inc/Dec), 05/11/18) KIDNEY FAILURE aspirin (Unverified Adverse Reaction, Severe, KIDNEY DISEASE, 05/11/18) amoxicillin (Unverified Adverse Reaction, Intermediate, SICK TO STOMACH, ) cefaclor (Unverified Adverse Reaction, Intermediate, SICK TO STOMACH, 05/11) ciprofloxacin (Unverified Adverse Reaction, Intermediate, SICK TO STOMACH , 05/11/18) clarithromycin (Unverified Adverse Reaction, Intermediate, SICK TO STOMACH , 05/11/18) clavulanic acid (Unverified Adverse Reaction, Intermediate, SICK TO STOMACH, 05/11/18) Past Medical History Type 2 diabetes (last HgA1C 7.0%), hypertension, hyperlipidemia, arthritis, stage III chronic kidney disease, hiatal hernia, migraines, hypothyroidism Past Surgical History Appendectomy, hysterectomy, tonsillectomy Reported Medications Reported Meds & Active Scripts Active Nifedipine ER 24 HR (Nifedipine) 60 Mg Tab 60 Mg PO Q12HR Reported Hydrocodone-Acetaminophen 5-325 mg Tab 1 Tab PO DAILY PRN Cozaar (Losartan Potassium) 25 Mg Tab 25 Mg PO DAILY Levemir Inj (Insulin Detemir) 1,000 unit/ 10 ML Vial 15 Units SQ HS Do not mix with any other Insulin. Levemir Inj (Insulin Detemir) 1,000 unit/ 10 ML Vial 10 Units SQ AC BREAKFAST Do not mix with any other Insulin. Novolin R Inj (Insulin Human Regular) 1,000 Unit/10 Ml Vial 15 Units SQ TID Linzess (Linaclotide) 290 Mcg Cap 290 Mcg PO DAILY Protonix (Pantoprazole Sodium) 20 Mg Tab 20 Mg PO DAILY Gabapentin 300 Mg Cap 300 Mg PO HS Metoprolol Tartrate 50 Mg Tab 100 Mg PO BID Flonase Nasal [place] (Fluticasone Nasal [place]) 50 Mcg/Act [place] 50 Mcg EACH NARE BID Levothyroxine (Levothyroxine Sodium) 112 Mcg Tab 137 Mcg PO DAILY Amaryl (Glimepiride) 4 Mg Tab 4 Mg PO BID Take with breakfast or the first main meal Furosemide 20 Mg Tab 20 Mg PO DAILY Dulcolax DR (Bisacodyl) 5 Mg Tabdr 10 Mg PO BID Lipitor (Atorvastatin Calcium) 40 Mg Tab 40 Mg PO HS Aspirin 81 Mg Chew 81 Mg CHEW DAILY Active Ordered Medications Current Medications Medications (Trade) Dose Ordered Sig/[place] Route Start Time Stop Time Status Last Admin (NS Flush) 2 ml UNSCH PRN IV FLUSH 05/11/18 19:15 (NS Flush) 2 ml BID IV FLUSH 05/11/18 21:00 Social History Known diabetes, hypertension, and hyperlipidemia. Known coronary artery disease. Lifelong non-smoker. Denies any alcohol use. Endorses sedentary lifestyle. Past cardiac testing 12/20/2011 Cardiac catheterization (Dr. Jamie Pike)-normal coronary arteries. Physical Exam Vital Signs Vital Signs Date Time Temp Pulse Resp B/P (MAP) Pulse Ox O2 Delivery O2 Flow Rate FiO2 05/12/18 01:03 98.6 81 16 155/90 (111) 96 05/11/18 22:00 98.6 75 18 182/81 (114) 98 05/11/18 20:08 05/11/18 19:06 66 16 173/77 (109) 96 Room Air 05/11/18 17:31 18 96 Room Air 05/11/18 17:21 88 128/62 (84) 05/11/18 16:40 98.7 73 16 149/92 (111) 92 Physical Exam GENERAL: Alert WN, WD, NAD, pleasant, obese, elderly female HEAD: NC, AT EYES: Sclera clear, conjunctiva without injection, pupils equal and round ENT: Mucous membranes pink and moist, no nasal discharge or bleeding CV: RRR, without murmur, rub, gallop, no JVD, S1-S2 no S3-S4. RESP: Clear lungs throughout bilateral, no crackles, wheeze, rhonchi, symmetrical chest rise, nonlabored, able to speak in full sentences ABD: Soft, NT, ND, no masses, positive bowel tones EXT: Pulses +2x4, no dependent edema MS: Normal tone x4 extremities, nontender, no obvious deformities, full range of motion NEURO: CN II through CN XII grossly intact, motor strength 5/5 PSYCH: A+O x3, pleasant affect, appropriate speech, mood, insight and judgment SKIN: Normal turgor, normal texture, no lesions, no rashes, brisk cap refill, even hair distribution Laboratory Laboratory Tests Test 05/11/18 17:35 05/11/18 21:20 05/12/18 00:30 White Blood Count 12.7 Red Blood Count 4.30 Hemoglobin 13.8 Hematocrit 41.4 Mean Corpuscular Volume 96.4 Mean Corpuscular Hemoglobin 32.1 Mean Corpuscular Hemoglobin Concent 33.3 Red Cell Distribution Width 12.8 Platelet Count 297 Mean Platelet Volume 10.4 Neutrophils (%) (Auto) 53.0 Lymphocytes (%) (Auto) 31.0 Monocytes (%) (Auto) 12.1 Eosinophils (%) (Auto) 2.7 Basophils (%) (Auto) 1.2 Neutrophils # (Auto) 6.7 Lymphocytes # (Auto) 3.9 Monocytes # (Auto) 1.5 Eosinophils # (Auto) 0.3 Basophils # (Auto) 0.2 CBC Comment DIFF FINAL Differential Comment Prothrombin Time 9.5 Prothromb Time International Ratio 0.9 Activated Partial Thromboplast Time 24.1 Blood Urea Nitrogen 19 Creatinine 1.78 Random Glucose 205 Total Protein 7.6 Albumin 3.4 Calcium Level 8.9 Alkaline Phosphatase 105 Aspartate Amino Transf (AST/SGOT) 20 Alanine Aminotransferase (ALT/SGPT) 32 Total Bilirubin 0.3 Sodium Level 143 Potassium Level 3.9 Chloride Level 109 Carbon Dioxide Level 21.7 Anion Gap 12 Estimat Glomerular Filtration Rate 27 Total Creatine Kinase 39 30 54 Troponin I LESS THAN 0.02 LESS THAN 0.02 LESS THAN 0.02 Date/Time Source Procedure Growth Status 05/11/18 17:39 Nasal Washing Influenza Types A,B Antigen (KYRA) - Final Positive For Flu A Antigen Complete Result Diagram: 05/11/18 1735 05/11/18 1735 Imaging Last 48 hours Impressions Chest X-Ray 05/11/18 1728 Signed Impressions: CONCLUSION: No acute cardiopulmonary disease. Course EKG NSR, no st t segment changes Caprini VTE Risk Assessment Caprini VTE Risk Assessment: Mod/High Risk (score >= 2) Caprini Risk Assessment Model Point Value = 1 Point Value = 2 Point Value = 3 Point Value = 5 Age 41-60 Minor surgery BMI > 25 kg/m2 Swollen legs Varicose veins or History of unexplained or recurrent spontaneous Oral contraceptives or hormone replacement Sepsis (< 1 month) Serious lung disease, including pneumonia (< 1 month) Abnormal pulmonary function Acute myocardial infarction Congestive heart failure (< 1 month) History of inflammatory bowel disease Medical patient at bed rest Age 61-74 Arthroscopic surgery Major open surgery (> 45 min) Laparoscopic surgery (> 45 min) Malignancy Confined to bed (> 72 hours) Immobilizing plaster cast Central venous access Age >= 75 History of VTE Family history of VTE Factor V Leiden Prothrombin [id number] Lupus anticoagulant Anticardiolipin antibodies Elevated serum homocysteine Heparin-induced thrombocytopenia Other congenital or acquired thrombophilia Stroke (< 1 month) Elective arthroplasty Hip, pelvis, or leg fracture Acute spinal cord injury (< 1 month) Prophylaxis Regimen Total Risk Factor Score Risk Level Prophylaxis Regimen 0-1 Low Early ambulation 2 Moderate Order ONE of the following: *Sequential Compression Device (SCD) *Heparin 5000 units SQ BID 3-4 Higher Order ONE of the following medications: *Heparin 5000 units SQ TID *Enoxaparin/Lovenox 40 mg SQ daily (WT < 150 kg, CrCl > 30 mL/min) *Enoxaparin/Lovenox 30 mg SQ daily (WT < 150 kg, CrCl > 10-29 mL/min) *Enoxaparin/Lovenox 30 mg SQ BID (WT < 150 kg, CrCl > 30 mL/min) AND/OR *Sequential Compression Device (SCD) 5 or more Highest Order ONE of the following medications: *Heparin 5000 units SQ TID (Preferred with Epidurals) *Enoxaparin/Lovenox 40 mg SQ daily (WT < 150 kg, CrCl > 30 mL/min) *Enoxaparin/Lovenox 30 mg SQ daily (WT < 150 kg, CrCl > 10-29 mL/min) *Enoxaparin/Lovenox 30 mg SQ BID (WT < 150 kg, CrCl > 30 mL/min) AND *Sequential Compression Device (SCD) Assessment and Plan Assessment and Plan Atypical chest pain-chest pain center. Ruled out 3 sets of EKGs, cardiac enzymes, and monitored on telemetry overnight. Seen evaluated by Dr. Aliyah Vásquez. Due to currently positive influenza, no further cardiac testing recommended. Especially with having a normal cardiac catheterization in 2012 and reports well controlled type II diabetes with last HgA1C 7.0%. Discomfort related to current upper respiratory infection, encourage supportive measures, and made aware influenza symptoms may persist for undetermined amount of time. Discharge home with follow up with PCP. Patient agreeable to plan of care and verbalizes understanding. Christine Jarvis May 12, 2018 07:37
[2018-05-12 08:00] VITALS: BP 157/67; PULSE 67; RESP 20; TEMP 97.5; O2SAT 96
[2018-05-12] MEDS ORDERED: ACETAMINOPHEN 500 MG CPLT PO PRN (08:15)
--- NOTE | 2018-05-12 08:15 | HHI.DCPOC ---
Discharge Care Plan Diagnosis: (1) Atypical chest pain (2) Influenza A virus present Goals to Promote Your Health * To prevent worsening of your condition and complications * To maintain your health at the optimal level Directions to Meet Your Goals Take your medications as prescribed Follow your dietary instruction Follow activity as directed Keep your appointments as scheduled Take your immunizations and boosters as scheduled If your symptoms worsen call your PCP, if no PCP go to Urgent Care Center or Emergency Room Smoking is Dangerous to Your Health. Avoid second hand smoke Call the 24-hour hour crisis hotline for domestic abuse at Christine Jarvis May 12, 2018 08:15
[2018-05-12] MEDS: SODIUM CHLORIDE 0.9% FLUSH 10 ML FLUSH IV FLUSH SCH (09:00)
--- NOTE | 2018-05-12 18:32 | EKG ---
Date Performed: 05/12/2018 Time Performed: 00:15:44 PTAGE: 77 years EKG: Sinus rhythm INFERIOR MYOCARDIAL INFARCTION ABNORMAL ECG Since PREVIOUS TRACING , no significant change noted PREVIOUS TRACIN05/11/2018 21.23 DOCTOR: Aliyah Vásquez Interpretating Date/Time 05/12/2018 18:31:17
--- NOTE | 2018-05-12 18:33 | EKG ---
Date Performed: 05/11/2018 Time Performed: 21:23:33 PTAGE: 77 years EKG: Sinus rhythm MINIMAL VOLTAGE CRITERIA FOR LVH, CONSIDER NORMAL VARIANT INFERIOR MYOCARDIAL INFARCTION ABNORMAL EC G Since PREVIOUS TRACING , no significant change noted DOCTOR: Aliyah Vásquez Interpretating Date/Time 05/12/2018 18:32:12
== END 2018-05-12 10:15 | disposition home or self-care (01) ==
LOC: NEPE 16:15 → NEDA 19:12 → NEPHCDU 20:02
PROVIDERS: ADMIT Internal Medicine Cardiovascular Disease; ATTEND Internal Medicine Cardiovascular Disease
DX: R07.89 Other chest pain (principal); J10.1 Influenza due to other identified influenza virus with other respiratory manifestations; I13.0 Hypertensive heart and chronic kidney disease with heart failure and stage 1 through stage 4 chronic kidney disease, or unspecified chronic kidney disease; I50.9 Heart failure, unspecified; E11.22 Type 2 diabetes mellitus with diabetic chronic kidney disease; N18.3 Chronic kidney disease, stage 3 (moderate); I25.10 Atherosclerotic heart disease of native coronary artery without angina pectoris; E78.5 Hyperlipidemia, unspecified; E11.43 Type 2 diabetes mellitus with diabetic autonomic (poly)neuropathy; E03.9 Hypothyroidism, unspecified; K31.84 Gastroparesis; R94.31 Abnormal electrocardiogram [ECG] [EKG]; R05 Cough; K58.9 Irritable bowel syndrome, unspecified; H91.91 Unspecified hearing loss, right ear; Z79.899 Other long term (current) drug therapy; Z79.82 Long term (current) use of aspirin
CPT/HCPCS: 71045; 80053; 82550; 84484; 85025; 85610; 85730; 87804; 93005; 99285; G0378

== ENCOUNTER 2018-08-25 21:14 | Inpatient (IN) ==
[2018-08-25] MEDS ORDERED: Aluminum/Magnesium/Simethacone Susp 30 ML UDC PO ONE (22:02)
--- NOTE | 2018-08-25 22:06 | ED ---
HPI General Chief Complaint: Chest Pain Stated Complaint: fall, fever, weakness Time Seen by Provider: 08/25/18 21:48 Source: patient and old records reviewed Mode of arrival: ambulatory Limitations: no limitations History of Present Illness HPI narrative: She denies any lower abdominal pain or diarrhea but she stated that she did have some last week.Patient woke up this morning with severe pain in her anterior chest radiating jaw and esophagus. She also had an episode where she fell because she was too weak and injured the left side of her head on the night-stand without any LOC. The patient had a recent EGD suggestive of erythematous gastritis and a hiatal hernia. She also had a colonoscopy that revealed severe diverticulosis. Related Data Home Medications Medication Instructions Recorded Confirmed aspirin [Aspir-81] 81 mg PO 08/25/18 atorvastatin 40 mg PO DAILY 08/25/18 08/26/18 cholecalciferol (vitamin D3) 2,000 unit PO DAILY 08/25/18 08/25/18 [Vitamin D3] furosemide 20 mg PO DAILY 08/25/18 08/26/18 glimepiride 4 mg PO BID 08/25/18 08/26/18 insulin detemir U-100 [Levemir 40 unit SUBCUT HS 08/25/18 08/26/18 U-100 Insulin] levothyroxine 112 mcg 08/25/18 metoprolol tartrate 50 mg PO BID 08/25/18 08/26/18 hydrocodone-acetaminophen 1 tab PO DAILY PRN 08/26/18 08/26/18 nifedipine 60 mg PO BID 08/26/18 08/26/18 pantoprazole 20 mg PO DAILY 08/26/18 08/26/18 Allergies Allergy/AdvReac Type Severity Reaction Status Date / Time diclofenac Allergy Severe Urinary Verified 08/25/18 21:32 Freq (Inc/Dec) etodolac Allergy Severe Urinary Verified 08/25/18 21:32 Freq (Inc/Dec) flurbiprofen Allergy Severe Urinary Verified 08/25/18 21:32 Freq (Inc/Dec) ibuprofen Allergy Severe Urinary Verified 08/25/18 21:32 Freq (Inc/Dec) indomethacin Allergy Severe Urinary Verified 08/25/18 21:32 Freq (Inc/Dec) ketoprofen Allergy Severe Urinary Verified 08/25/18 21:32 Freq (Inc/Dec) ketorolac Allergy Severe Urinary Verified 08/25/18 21:32 Freq (Inc/Dec) naproxen Allergy Severe Urinary Verified 08/25/18 21:32 Freq (Inc/Dec) oxaprozin Allergy Severe Urinary Verified 08/25/18 21:32 Freq (Inc/Dec) Sulfa (Sulfonamide Allergy Severe GI UPSET Verified 08/25/18 21:32 Antibiotics) aspirin AdvReac Severe KIDNEY Unverified 05/11/18 17:17 DISEASE amoxicillin AdvReac Intermediate SICK TO Unverified 05/11/18 17:17 STOMACH cefaclor AdvReac Intermediate SICK TO Unverified 05/11/18 17:17 STOMACH ciprofloxacin AdvReac Intermediate SICK TO Unverified 05/11/18 17:17 STOMACH clarithromycin AdvReac Intermediate SICK TO Unverified 05/11/18 17:17 STOMACH clavulanic acid AdvReac Intermediate SICK TO Unverified 05/11/18 17:17 STOMACH Review of Systems ROS: all other systems reviewed are negative [facility] Medical History Medical History Cataract (Acute) Diabetes (Acute) H/O: hysterectomy (Acute) Hypertension (Acute) Pulmonary fibrosis (Acute) Stage 3 chronic kidney disease (Acute) Surgical History Surgical History Hx of tonsillectomy (Acute) Social History Social History Substance History: No History of Abuse Second Hand Smoke Exposure: No Smoking Status: Never smoker How Often Do You Have a Drink Containing Alcohol: Never Recent Travel in [facility] within the Last 8 Weeks: No Recent Out of Country Travel within the Last 8 Weeks: No Immunization History Tetanus Immunization: Unsure Hx Influenza Vaccine This Season: Yes Exam Narrative Exam Narrative: GENERAL: Alert and oriented in no distress SKIN: Focused skin assessment warm/dry. HEAD: Atraumatic. Normocephalic. EYES: Pupils equal and round. No scleral icterus. No injection or drainage. ENT: No nasal bleeding or discharge. Mucous membranes pink and moist. NECK: Trachea midline. No JVD. CARDIOVASCULAR: Regular rate and rhythm. No murmur appreciated. RESPIRATORY: No accessory muscle use. Clear to auscultation. Breath sounds equal bilaterally. GASTROINTESTINAL: Abdomen soft, with mild epigastric tenderness, nondistended. Hepatic and splenic margins not palpable. MUSCULOSKELETAL: No obvious deformities. No clubbing. No cyanosis. No edema. NEUROLOGICAL: Awake and alert. No obvious cranial nerve deficits. Motor grossly within normal limits. Normal speech. PSYCHIATRIC: Appropriate mood and affect; insight and judgment normal. Chest Other: Palpation of anterior chest does not produce pain. Course Hospital Course: With leukocytosis of 23.1 unknown source of infection. Chest x-ray was negative. CT abdomen and pelvis is not suggestive of acute intra-abdominal process she does have diffuse diverticulosis of the also confirmed by colonoscopy recently. Wrote a new area with trace leuk esterase and rare bacteria is not very suggestive of UTI. Blood cultures were obtained she was given cefepime for his pump broad-spectrum coverage. Head CT was unremarkable. GI cocktail did improve her abdominal discomfort. EKG and troponin not suggestive of acute ischemia. Initial Documented Vital Signs Temperature 100.0 F H 08/25/18 21:32 Pulse Rate 92 H 08/25/18 21:32 Respiratory Rate 19 08/25/18 21:32 Blood Pressure 131/58 L 08/25/18 21:32 Pulse Oximetry 94 L 08/25/18 21:32 Last Documented Vital Signs Temperature 101.7 F H 08/26/18 19:07 Pulse Rate 95 H 08/26/18 16:00 Respiratory Rate 18 08/26/18 16:00 Blood Pressure 142/63 H 08/26/18 16:00 Pulse Oximetry 92 L 08/26/18 16:00 Critical Care Time Critical Care Time: Yes Total Critical Care Time: 45 Attestation: Aggregate critical care time was 45 minutes. Time to perform other separately billable procedures was not included in the critical care time. My time did not include minutes spent treating any other patients simultaneously or on activities that did not directly contribute to the patient's treatment. The services I provided to this patient were to treat and/or prevent clinically significant deterioration that could result in: Permanent disability and or I provided critical care services requiring my management, as noted below: Chart data review, documentation time, medication orders and management, vital sign assessments/reviewing monitor data, ordering and reviewing lab tests, ordering and interpreting/reviewing x-rays and diagnostic studies, care of the patient and discussion of the patient with the admitting physicians. Medical Decision Making MDM Narrative Medical decision making narrative: She will EKG and troponin not suggestive of acute ischemia. She does have abnormalities on inferior leads however she is pain-free at this time. Lactic acidosis and leukocytosis were noted and she was given cefepime. Unknown source of her infection at this time. CT head was negative for acute events. Ischemic changes of the supratentorial white matter including a lacunar infarct are stable from prior as per radiology report. No focal neurologic deficits hemodynamically stable alert and oriented. Medical Screen Exam Complete: Yes Emergency Medical Condition: Yes Medical Records Medical records reviewed: Yes I reviewed the patient's medical records. Lab Data Lab results reviewed: Yes I reviewed the patient's lab results. Result diagrams: 08/26/18 17:26 08/26/18 17: Lab Results 08/25/18 08/25/18 08/25/18 Range/Units 22:10 22:10 22:10 WBC 23.1 H (4.0-11.0) th/mm3 RBC 4.28 (4.00-5.30) mil/mm3 Hgb 13.8 (11.6-15.3) gm/dL Hct 41.4 (35.0-46.0) % MCV 96.8 (80.0-100.0) fL MCH 32.2 (27.0-34.0) pg MCHC 33.2 (32.0-36.0) % RDW 12.7 (11.6-17.2) % Plt Count 254 (150-450) th/mm3 MPV 9.6 (7.0-11.0) fL Prelim Diff (Auto) Slide review pending Neut % (Auto) 76.8 H (16.0-70.0) % Lymph % (Auto) 9.0 (9.0-44.0) % [place] % (Auto) 13.2 H (0.0-8.0) % Eos % (Auto) 0.6 (0.0-4.0) % Baso % (Auto) 0.4 (0.0-2.0) % Neut # (Auto) 17.8 H (1.8-7.7) th/mm3 Lymph # (Auto) 2.1 (1.0-4.8) th/mm3 [place] # (Auto) 3.0 H (0.0-0.9) th/mm3 Eos # (Auto) 0.1 (0.0-0.4) th/mm3 Baso # (Auto) 0.1 (0.0-0.2) th/mm3 WBC Differential Manual diff final Diff Scan Seg Neuts % (Manual) 70 (16-70) % Band Neuts % (Manual) 6 (0-6) % Lymphocytes % (Manual) 10 (9-44) % Monocytes % (Manual) 14 H (0-8) % Abs Neuts (Manual) 17.6 H (1.8-7.7) th/mm3 Differential Comment . Platelet Estimate Normal (Normal) Platelet Morphology Normal (Normal) RBC Morphology (Normal) Ovalocytes 1+ H (None) PT 10.3 (9.8-11.6) sec INR 1.0 Ratio APTT 32.9 H (24.3-30.1) sec Sodium 141 (136-145) meq/L Potassium 3.9 (3.5-5.1) meq/L Chloride 109 H (98-107) meq/L Carbon Dioxide 18.0 L (21.0-32.0) meq/L Anion Gap 14 (5-15) meq/L BUN 20 H (7-18) mg/dL Creatinine 1.56 H (0.50-1.00) mg/dL Estimated GFR 32 L (>89) mL/min POC Glucose (68-110) mg/dl Random Glucose 206 H (74-106) mg/dL Lactic Acid (0.4-2.0) mmol/L Calcium 8.7 (8.5-10.1) mg/dL Magnesium 1.4 L (1.5-2.5) mg/dL Total Bilirubin 0.7 (0.2-1.0) mg/dL AST 25 (15-37) U/L ALT 31 (10-53) U/L Alkaline Phosphatase 111 (45-117) U/L Total Creatine Kinase 38 (26-192) U/L Troponin I 0.03 (0.02-0.05) ng/mL Total Protein 8.0 (6.4-8.2) g/dL Albumin 3.2 L (3.4-5.0) g/dL Lipase 75 (73-393) U/L Urine Color (Yellw/Straw) Urine Clarity (Clear) Urine pH (5.0-8.5) Ur Specific [place] (1.002-1.035) Urine Protein (Neg-Trace) mg/dL Urine Glucose (UA) (Negative) mg/dL Urine Ketones (Negative) mg/dL Urine Occult Blood (Negative) Urine Nitrate (Negative) Urine Bilirubin (Negative) Urine Urobilinogen (Less than 2) mg/dL Ur Leukocyte Esterase (Negative) Urine RBC (0-3) /hpf Urine WBC (0-5) /hpf Ur Squamous Epith Cells (0-5) /hpf Urine Bacteria (None) /hpf Hyaline Casts (0-3) /lpf Urine Mucus (Occasional) /lpf Micro UA Comment Ur Microscopic Review Urine Culture Comments 08/25/18 08/26/18 08/26/18 Range/Units 22:10 00:05 02:30 WBC (4.0-11.0) th/mm3 RBC (4.00-5.30) mil/mm3 Hgb (11.6-15.3) gm/dL Hct (35.0-46.0) % MCV (80.0-100.0) fL MCH (27.0-34.0) pg MCHC (32.0-36.0) % RDW (11.6-17.2) % Plt Count (150-450) th/mm3 MPV (7.0-11.0) fL Prelim Diff (Auto) Neut % (Auto) (16.0-70.0) % Lymph % (Auto) (9.0-44.0) % [place] % (Auto) (0.0-8.0) % Eos % (Auto) (0.0-4.0) % Baso % (Auto) (0.0-2.0) % Neut # (Auto) (1.8-7.7) th/mm3 Lymph # (Auto) (1.0-4.8) th/mm3 [place] # (Auto) (0.0-0.9) th/mm3 Eos # (Auto) (0.0-0.4) th/mm3 Baso # (Auto) (0.0-0.2) th/mm3 WBC Differential Diff Scan Seg Neuts % (Manual) (16-70) % Band Neuts % (Manual) (0-6) % Lymphocytes % (Manual) (9-44) % Monocytes % (Manual) (0-8) % Abs Neuts (Manual) (1.8-7.7) th/mm3 Differential Comment Platelet Estimate (Normal) Platelet Morphology (Normal) RBC Morphology (Normal) Ovalocytes (None) PT (9.8-11.6) sec INR Ratio APTT (24.3-30.1) sec Sodium (136-145) meq/L Potassium (3.5-5.1) meq/L Chloride (98-107) meq/L Carbon Dioxide (21.0-32.0) meq/L Anion Gap (5-15) meq/L BUN (7-18) mg/dL Creatinine (0.50-1.00) mg/dL Estimated GFR (>89) mL/min POC Glucose (68-110) mg/dl Random Glucose (74-106) mg/dL Lactic Acid 2.2 H 2.5 H (0.4-2.0) mmol/L Calcium (8.5-10.1) mg/dL Magnesium (1.5-2.5) mg/dL Total Bilirubin (0.2-1.0) mg/dL AST (15-37) U/L ALT (10-53) U/L Alkaline Phosphatase (45-117) U/L Total Creatine Kinase (26-192) U/L Troponin I (0.02-0.05) ng/mL Total Protein (6.4-8.2) g/dL Albumin (3.4-5.0) g/dL Lipase (73-393) U/L Urine Color Yellow (Yellw/Straw) Urine Clarity Hazy H (Clear) Urine pH 5.0 (5.0-8.5) Ur Specific [place] 1.018 (1.002-1.035) Urine Protein 100 H (Neg-Trace) mg/dL Urine Glucose (UA) Negative (Negative) mg/dL Urine Ketones Negative (Negative) mg/dL Urine Occult Blood Negative (Negative) Urine Nitrate Negative (Negative) Urine Bilirubin Negative (Negative) Urine Urobilinogen Less than 2 (Less than 2) mg/dL Ur Leukocyte Esterase Trace H (Negative) Urine RBC Less than 1 (0-3) /hpf Urine WBC 10 H (0-5) /hpf Ur Squamous Epith Cells 3 (0-5) /hpf Urine Bacteria Rare H (None) /hpf Hyaline Casts 3 (0-3) /lpf Urine Mucus Few H (Occasional) /lpf Micro UA Comment Culture indicated Ur Microscopic Review Not Reportable Urine Culture Comments Culture indicated 08/26/18 08/26/18 08/26/18 Range/Units 04:30 09:35 13:02 WBC (4.0-11.0) th/mm3 RBC (4.00-5.30) mil/mm3 Hgb (11.6-15.3) gm/dL Hct (35.0-46.0) % MCV (80.0-100.0) fL MCH (27.0-34.0) pg MCHC (32.0-36.0) % RDW (11.6-17.2) % Plt Count (150-450) th/mm3 MPV (7.0-11.0) fL Prelim Diff (Auto) Neut % (Auto) (16.0-70.0) % Lymph % (Auto) (9.0-44.0) % [place] % (Auto) (0.0-8.0) % Eos % (Auto) (0.0-4.0) % Baso % (Auto) (0.0-2.0) % Neut # (Auto) (1.8-7.7) th/mm3 Lymph # (Auto) (1.0-4.8) th/mm3 [place] # (Auto) (0.0-0.9) th/mm3 Eos # (Auto) (0.0-0.4) th/mm3 Baso # (Auto) (0.0-0.2) th/mm3 WBC Differential Diff Scan Seg Neuts % (Manual) (16-70) % Band Neuts % (Manual) (0-6) % Lymphocytes % (Manual) (9-44) % Monocytes % (Manual) (0-8) % Abs Neuts (Manual) (1.8-7.7) th/mm3 Differential Comment Platelet Estimate (Normal) Platelet Morphology (Normal) RBC Morphology (Normal) Ovalocytes (None) PT (9.8-11.6) sec INR Ratio APTT (24.3-30.1) sec Sodium (136-145) meq/L Potassium (3.5-5.1) meq/L Chloride (98-107) meq/L Carbon Dioxide (21.0-32.0) meq/L Anion Gap (5-15) meq/L BUN (7-18) mg/dL Creatinine (0.50-1.00) mg/dL Estimated GFR (>89) mL/min POC Glucose 154 H 189 H (68-110) mg/dl Random Glucose (74-106) mg/dL Lactic Acid (0.4-2.0) mmol/L Calcium (8.5-10.1) mg/dL Magnesium (1.5-2.5) mg/dL Total Bilirubin (0.2-1.0) mg/dL AST (15-37) U/L ALT (10-53) U/L Alkaline Phosphatase (45-117) U/L Total Creatine Kinase (26-192) U/L Troponin I 0.03 (0.02-0.05) ng/mL Total Protein (6.4-8.2) g/dL Albumin (3.4-5.0) g/dL Lipase (73-393) U/L Urine Color (Yellw/Straw) Urine Clarity (Clear) Urine pH (5.0-8.5) Ur Specific [place] (1.002-1.035) Urine Protein (Neg-Trace) mg/dL Urine Glucose (UA) (Negative) mg/dL Urine Ketones (Negative) mg/dL Urine Occult Blood (Negative) Urine Nitrate (Negative) Urine Bilirubin (Negative) Urine Urobilinogen (Less than 2) mg/dL Ur Leukocyte Esterase (Negative) Urine RBC (0-3) /hpf Urine WBC (0-5) /hpf Ur Squamous Epith Cells (0-5) /hpf Urine Bacteria (None) /hpf Hyaline Casts (0-3) /lpf Urine Mucus (Occasional) /lpf Micro UA Comment Ur Microscopic Review Urine Culture Comments 08/26/18 08/26/18 08/26/18 Range/Units 17:26 17:26 17:26 WBC 21.5 H (4.0-11.0) th/mm3 RBC 4.04 (4.00-5.30) mil/mm3 Hgb 13.0 (11.6-15.3) gm/dL Hct 39.5 (35.0-46.0) % MCV 97.7 (80.0-100.0) fL MCH 32.1 (27.0-34.0) pg MCHC 32.9 (32.0-36.0) % RDW 13.2 (11.6-17.2) % Plt Count 221 (150-450) th/mm3 MPV 10.2 (7.0-11.0) fL Prelim Diff (Auto) Slide review pending Neut % (Auto) 69.2 (16.0-70.0) % Lymph % (Auto) 17.5 (9.0-44.0) % [place] % (Auto) 12.5 H (0.0-8.0) % Eos % (Auto) 0.5 (0.0-4.0) % Baso % (Auto) 0.3 (0.0-2.0) % Neut # (Auto) 14.9 H (1.8-7.7) th/mm3 Lymph # (Auto) 3.8 (1.0-4.8) th/mm3 [place] # (Auto) 2.7 H (0.0-0.9) th/mm3 Eos # (Auto) 0.1 (0.0-0.4) th/mm3 Baso # (Auto) 0.1 (0.0-0.2) th/mm3 WBC Differential . Diff Scan Auto diff confirmed Seg Neuts % (Manual) (16-70) % Band Neuts % (Manual) (0-6) % Lymphocytes % (Manual) (9-44) % Monocytes % (Manual) (0-8) % Abs Neuts (Manual) (1.8-7.7) th/mm3 Differential Comment . Platelet Estimate Normal (Normal) Platelet Morphology Normal (Normal) RBC Morphology Normal (Normal) Ovalocytes (None) PT (9.8-11.6) sec INR Ratio APTT (24.3-30.1) sec Sodium 139 (136-145) meq/L Potassium 4.0 (3.5-5.1) meq/L Chloride 107 (98-107) meq/L Carbon Dioxide 22.3 (21.0-32.0) meq/L Anion Gap 10 (5-15) meq/L BUN 24 H (7-18) mg/dL Creatinine 1.56 H (0.50-1.00) mg/dL Estimated GFR 32 L (>89) mL/min POC Glucose (68-110) mg/dl Random Glucose 138 H (74-106) mg/dL Lactic Acid (0.4-2.0) mmol/L Calcium 8.8 (8.5-10.1) mg/dL Magnesium (1.5-2.5) mg/dL Total Bilirubin (0.2-1.0) mg/dL AST (15-37) U/L ALT (10-53) U/L Alkaline Phosphatase (45-117) U/L Total Creatine Kinase (26-192) U/L Troponin I 0.02 (0.02-0.05) ng/mL Total Protein (6.4-8.2) g/dL Albumin (3.4-5.0) g/dL Lipase (73-393) U/L Urine Color (Yellw/Straw) Urine Clarity (Clear) Urine pH (5.0-8.5) Ur Specific [place] (1.002-1.035) Urine Protein (Neg-Trace) mg/dL Urine Glucose (UA) (Negative) mg/dL Urine Ketones (Negative) mg/dL Urine Occult Blood (Negative) Urine Nitrate (Negative) Urine Bilirubin (Negative) Urine Urobilinogen (Less than 2) mg/dL Ur Leukocyte Esterase (Negative) Urine RBC (0-3) /hpf Urine WBC (0-5) /hpf Ur Squamous Epith Cells (0-5) /hpf Urine Bacteria (None) /hpf Hyaline Casts (0-3) /lpf Urine Mucus (Occasional) /lpf Micro UA Comment Ur Microscopic Review Urine Culture Comments 08/26/18 Range/Units 18:09 WBC (4.0-11.0) th/mm3 RBC (4.00-5.30) mil/mm3 Hgb (11.6-15.3) gm/dL Hct (35.0-46.0) % MCV (80.0-100.0) fL MCH (27.0-34.0) pg MCHC (32.0-36.0) % RDW (11.6-17.2) % Plt Count (150-450) th/mm3 MPV (7.0-11.0) fL Prelim Diff (Auto) Neut % (Auto) (16.0-70.0) % Lymph % (Auto) (9.0-44.0) % [place] % (Auto) (0.0-8.0) % Eos % (Auto) (0.0-4.0) % Baso % (Auto) (0.0-2.0) % Neut # (Auto) (1.8-7.7) th/mm3 Lymph # (Auto) (1.0-4.8) th/mm3 [place] # (Auto) (0.0-0.9) th/mm3 Eos # (Auto) (0.0-0.4) th/mm3 Baso # (Auto) (0.0-0.2) th/mm3 WBC Differential Diff Scan Seg Neuts % (Manual) (16-70) % Band Neuts % (Manual) (0-6) % Lymphocytes % (Manual) (9-44) % Monocytes % (Manual) (0-8) % Abs Neuts (Manual) (1.8-7.7) th/mm3 Differential Comment Platelet Estimate (Normal) Platelet Morphology (Normal) RBC Morphology (Normal) Ovalocytes (None) PT (9.8-11.6) sec INR Ratio APTT (24.3-30.1) sec Sodium (136-145) meq/L Potassium (3.5-5.1) meq/L Chloride (98-107) meq/L Carbon Dioxide (21.0-32.0) meq/L Anion Gap (5-15) meq/L BUN (7-18) mg/dL Creatinine (0.50-1.00) mg/dL Estimated GFR (>89) mL/min POC Glucose 167 H (68-110) mg/dl Random Glucose (74-106) mg/dL Lactic Acid (0.4-2.0) mmol/L Calcium (8.5-10.1) mg/dL Magnesium (1.5-2.5) mg/dL Total Bilirubin (0.2-1.0) mg/dL AST (15-37) U/L ALT (10-53) U/L Alkaline Phosphatase (45-117) U/L Total Creatine Kinase (26-192) U/L Troponin I (0.02-0.05) ng/mL Total Protein (6.4-8.2) g/dL Albumin (3.4-5.0) g/dL Lipase (73-393) U/L Urine Color (Yellw/Straw) Urine Clarity (Clear) Urine pH (5.0-8.5) Ur Specific [place] (1.002-1.035) Urine Protein (Neg-Trace) mg/dL Urine Glucose (UA) (Negative) mg/dL Urine Ketones (Negative) mg/dL Urine Occult Blood (Negative) Urine Nitrate (Negative) Urine Bilirubin (Negative) Urine Urobilinogen (Less than 2) mg/dL Ur Leukocyte Esterase (Negative) Urine RBC (0-3) /hpf Urine WBC (0-5) /hpf Ur Squamous Epith Cells (0-5) /hpf Urine Bacteria (None) /hpf Hyaline Casts (0-3) /lpf Urine Mucus (Occasional) /lpf Micro UA Comment Ur Microscopic Review Urine Culture Comments Imaging Data Radiologist's impression: Chest X-Ray 08/25/18 22:02 CONCLUSION: No acute cardiopulmonary disease identified. Abdomen/Pelvis CT 08/25/18 22:03 CONCLUSION: 1. No acute findings in the abdomen and pelvis. 2. Colonic diverticulosis but no evidence of acute diverticulitis. Head CT 08/25/18 22:06 CONCLUSION: 1. No acute findings in the brain. 2. Ischemic change in the supratentorial white matter including a lacunar infarct, stable from prior. . ECG Data EKG Prior to Arrival: No Attestation: I personally reviewed and interpreted this ECG as follows: Interpretation: Normal sinus rhythm nonspecific ST-T wave abnormalities on inferior leads. No signs of acute LA. Discharge Plan Discharge Disposition Patient Disposition: 30 Still Patient Discharge Condition Condition: Good Discharge Details Diagnosis: Atypical chest pain, Sepsis Physicians Team ED Provider: Kadeem Mejia Primary Care Provider: Will Marc Attending Provider: Augustine Clark Status ED Status: Left Department Discharge Information Discharge Date/Time: 08/26/18 07:18
[2018-08-25 22:25] LABS: Baso # (Auto) 0.1 th/mm3 (0.0-0.2); Baso % (Auto) 0.4 % (0.0-2.0); Eos # (Auto) 0.1 th/mm3 (0.0-0.4); Eos % (Auto) 0.6 % (0.0-4.0); Hematocrit 41.4 % (35.0-46.0); Hemoglobin 13.8 gm/dL (11.6-15.3); Lymph # (Auto) 2.1 th/mm3 (1.0-4.8); Mean Corpuscular HGB Conc 33.2 % (32.0-36.0); Mean Corpuscular Hemoglobin 32.2 pg (27.0-34.0); Mean Corpuscular Volume 96.8 fL (80.0-100.0); Mean Platelet Volume 9.6 fL (7.0-11.0); Mono % (Auto) 13.2 % (0.0-8.0); Neut # (Auto) 17.8 th/mm3 (1.8-7.7); Neut % (Auto) 76.8 % (16.0-70.0); Platelet Count 254 th/mm3 (150-450); Red Blood Count 4.28 mil/mm3 (4.00-5.30); Red Cell Distribution Width 12.7 % (11.6-17.2); White Blood Count 23.1 th/mm3 (4.0-11.0)
[2018-08-25 22:38] LABS: Activated Partial Thrombo Time 32.9 sec (24.3-30.1); Prothrombin Time 10.3 sec (9.8-11.6)
[2018-08-25 22:49] LABS: Albumin 3.2 g/dL (3.4-5.0); Anion Gap 14 meq/L (5-15); Aspartate Aminotransferase 25 U/L (15-37); Blood Urea Nitrogen 20 mg/dL (7-18); Calcium 8.7 mg/dL (8.5-10.1); Chloride 109 meq/L (98-107); Glomerular Filtration Rate 32 mL/min (>89); Glucose,Random 206 mg/dL (74-106); Lipase 75 U/L (73-393); Magnesium 1.4 mg/dL (1.5-2.5); Potassium 3.9 meq/L (3.5-5.1); Sodium 141 meq/L (136-145)
[2018-08-25 22:54] LABS: Alanine Aminotransferase 31 U/L (10-53); Alkaline Phosphatase 111 U/L (45-117); Troponin I 0.03 ng/mL (0.02-0.05)
[2018-08-25 22:57] LABS: Lymphocytes 10 % (9-44); Monocytes 14 % (0-8)
[2018-08-25 22:59] LABS: Creatine Kinase 38 U/L (26-192); Ovalocytes 1+; Platelet Estimate Normal (Normal); Platelet Morphology Normal (Normal)
--- NOTE | 2018-08-25 23:00 | XR ---
EXAM DATE: 08/25/2018 10:02 PM EDT AGE/SEX: 78 years / Female INDICATIONS: Fever with chest pain. CLINICAL DATA: This is the patient's initial encounter. Patient reports that signs and symptoms have been present for 1 day and indicates a pain score of 3/10. MEDICAL/SURGICAL HISTORY: . Hypercholesterolemia. Hypertension. Hypothyroidism. Congestive hea rt failure. Chronic kidney disease, stage III. Arthritis. Anemia. Diabetes. Gastroparesis. . Tonsil lectomy. Hysterectomy. Cardiac catheterization. COMPARISON: [facility] – [place]ST SINGLE AP, 05/11/2018. . FINDINGS: Single AP view of the chest. The lungs are clear. Cardiomediastinal silhouette within norm al limits. No evidence of pleural effusion or pneumothorax. CONCLUSION: No acute cardiopulmonary disease identified. Electronically signed by: Willian Harrison MD 08/25/2018 10:58 PM EDT
[2018-08-25] MEDS ORDERED: Mag Sulf 1 gm/100 ml Premix 100 ML IV.SIG ONE (23:42)
--- NOTE | 2018-08-25 23:54 | CT ---
EXAM DATE: 08/25/2018 10:07 PM EDT AGE/SEX: 78 years / Female INDICATIONS: Upper abdominal pain. CLINICAL DATA: This is the patient's initial encounter. Patient reports that signs and symptoms have been present for 1 day and indicates a pain score of 8/10. MEDICAL/SURGICAL HISTORY: Cardiovascular disease. Mesenteric ischemia. Renal failure, chronic . Diabetes Gastroparesis Hiatal Hernia Appendectomy. Hysterectomy. RADIATION DOSE: 10.16 CTDI (mGy) COMPARISON: [facility], CT ABDOMEN AND PELVIS W/O CONTRAST, 01/19/2016. . TECHNIQUE: Multiple contiguous axial images were obtained through the abdomen. Images were obtained using multiple row detector helical technique. Using automated exposure control and adjustment of the mA and/or kV according to patient size, radiation dose was kept as low as reasonably achievable to o btain optimal diagnostic quality images. DICOM format image data is available electronically for rev iew and comparison. FINDINGS: Lower Lungs: Mild bilateral lower lung zone opacity. Liver: The liver has a homogeneous density without space-occupying lesion. There is no dilation of th e biliary tree. Spleen: Homogeneous density without enlargement. Pancreas: Unremarkable without mass or calcification. Kidneys: Normal in size and shape. No evidence of mass or hydronephrosis. Adrenal Glands: Unremarkable. Aorta: Diffusely calcified but normal diameter. Bowel/Mesentery: Numerous colonic diverticula. No evidence of acute diverticulitis. Appendix not isi ntified. Duodenal diverticulum also again noted. Abdominal Wall: Intact. Retroperitoneum: No evidence of adenopathy in the retrocrural, para-aortic, or deep pelvic regions. Bladder: Contours are smooth. Reproductive Organs: No abnormal masses or calcifications seen. Inguinal: The inguinal region is unremarkable without evidence of adenopathy. Bony Structures: Unremarkable. CONCLUSION: 1. No acute findings in the abdomen and pelvis. 2. Colonic diverticulosis but no evidence of acute diverticulitis. Electronically signed by: Willian Harrison MD 08/25/2018 11:53 PM EDT
[2018-08-26] MEDS ORDERED: Acetaminophen 325 MG Tablet PO ONE (00:02)
--- NOTE | 2018-08-26 00:03 | CT ---
EXAM DATE: 08/25/2018 10:09 PM EDT AGE/SEX: 78 years / Female INDICATIONS: Generalized weakness with fall. CLINICAL DATA: This is the patient's initial encounter. Patient reports that signs and symptoms have been present for 1 day and indicates a pain score of 0/10. MEDICAL/SURGICAL HISTORY: Cardiovascular disease. Hypertension. Renal failure, chronic. Diabetes Gastroparesis Hiatal hernia Appendectomy. Hysterectomy. RADIATION DOSE: 56.35 CTDI (mGy) COMPAR[place]: [facility] [place], 08/30/2017. [facility], CT BRAIN W/O CONTRAST, 08/17/2015. . TECHNIQUE: CT of the head without contrast. Using automated exposure control and adjustment of the mA and/or kV according to patient size, radiation dose was kept as low as reasonably achievable to ob tain optimal diagnostic quality images. DICOM format image data is available electronically for revi ew and comparison. FINDINGS: Cerebrum: The ventricles are normal for age. No evidence of midline shift, mass lesion, hemorrhage or acute infarction. Stable lacunar infarct in the subcortical left mata radiata and white matter hypodensity in the posterior high right parietal region characteristic of ischemic demyelination. No extraaxial fluid collections are seen. Posterior Fossa: The cerebellum and brainstem are intact. The 4th ventricle is midline. The cerebe llopontine angle is unremarkable. Extracranial: The visualized portion of the orbits is intact. Skull: The calvaria is intact. No evidence of skull fracture. CONCLUSION: 1. No acute findings in the brain. 2. Ischemic change in the supratentorial white matter including a lacunar infarct, stable from prior . . Electronically signed by: Bharath Bernard MD 08/26/2018 12:02 AM EDT
[2018-08-26 00:24] LABS: Bacteria,Urine Rare /hpf; Bilirubin,Urine Negative (Negative); Clarity,Urine Hazy (Clear); Color,Urine Yellow (Yellw/Straw); Glucose,Urine (UA) Negative (Negative); Hyaline Casts,Urine 3 /lpf (0-3); Leukocyte Esterase,Urine Trace (Negative); Mucus,Urine Few /lpf (Occasional); Nitrite,Urine Negative (Negative); Specific Gravity,Urine 1.018 (1.002-1.035); Squamous Epithelial Cell,Urine 3 /hpf (0-5)
[2018-08-26] MEDS ORDERED: Sod Chloride 0.9% Inj 1,000 ML IV.SIG ONE (03:13)
--- NOTE | 2018-08-26 10:08 | P.HP ---
<Rachell Vaz W - Last Filed: 08/26/18 18:52> History of Present Illness Primary Care Physician: Will Marc MD Chief Complaint: Fell out of bed this a.m. also having pain in her jaw and mid drift History of Present Illness: This is an 78-year-old female patient with past medical history which includes HTN, DM, peripheral neuropathy, hypothyroidism, gout, hyperlipidemia, CKD stage 3, pulmonary fibrosis follows with Dr. Sparks, osteoarthritis of multiple joints , lumbar degenerative disc disease, fibromyalgia, IBS, diverticulosis, GERD and gastroparesis. Information gathered from patient as Patient reports that she had lower abdominal pain with diarrhea last week. Patient had endoscopy last week at [facility] with Dr. Ku, per family the endoscopy revealed severe diverticulosis. Information from family member in the room. Patient's daughter reports that yesterday the patient c/o pain from her chin to her belly button yesterday then she laid down. Then patient rolled out of bed and hit her head on the night stand, denies LOC. At this time patient reports that she has IBS and has had both constipation and diarrhea. Patient does endorse poor PO intake due to lack of appetite. Patient denies SOB, N/V or diarrhea at this time. Past Medical History HTN, DM, peripheral neuropathy, hypothyroidism, gout, hyperlipidemia, CKD and IBS Past Surgical History Appendectomy, cataract surgery, hysterectomy wit oophorectomy, tonsillectomy and adenoidectomy as a child Family History reviewed and noncontributory Social History denies ETOH, Tobacco use or illicit drug use PMFSH - History History Provided By: Patient, Family Member - Medical History Medical History: Medical History (Last Reviewed 08/26/18 @ 03:07 by Kadeem Mejia DO) Cataract Diabetes H/O: hysterectomy Hypertension Pulmonary fibrosis Stage 3 chronic kidney disease - Surgical History Surgical History: Surgical History (Last Reviewed 08/26/18 @ 03:07 by Kadeem Mejia DO) Hx of tonsillectomy - Tobacco History Second Hand Smoke Exposure: No Smoking Status: Never smoker - Alcohol History How Often Do You Have a Drink Containing Alcohol: Never - Substance Use History Substance History: No History of Abuse - Travel History Recent Travel in the [facility] Within the Last 8 Weeks: No Recent Travel Out of the Country Within the Last 8 Weeks: No - Immunization History Tetanus Immunization: Unsure Hx Influenza Vaccine This Season: Yes Medications and Allergies Allergies Allergy/AdvReac Type Severity Reaction Status Date / Time diclofenac Allergy Severe Urinary Verified 08/25/18 21:32 Freq (Inc/Dec) etodolac Allergy Severe Urinary Verified 08/25/18 21:32 Freq (Inc/Dec) flurbiprofen Allergy Severe Urinary Verified 08/25/18 21:32 Freq (Inc/Dec) ibuprofen Allergy Severe Urinary Verified 08/25/18 21:32 Freq (Inc/Dec) indomethacin Allergy Severe Urinary Verified 08/25/18 21:32 Freq (Inc/Dec) ketoprofen Allergy Severe Urinary Verified 08/25/18 21:32 Freq (Inc/Dec) ketorolac Allergy Severe Urinary Verified 08/25/18 21:32 Freq (Inc/Dec) naproxen Allergy Severe Urinary Verified 08/25/18 21:32 Freq (Inc/Dec) oxaprozin Allergy Severe Urinary Verified 08/25/18 21:32 Freq (Inc/Dec) Sulfa (Sulfonamide Allergy Severe GI UPSET Verified 08/25/18 21:32 Antibiotics) aspirin AdvReac Severe KIDNEY Unverified 05/11/18 17:17 DISEASE amoxicillin AdvReac Intermediate SICK TO Unverified 05/11/18 17:17 STOMACH cefaclor AdvReac Intermediate SICK TO Unverified 05/11/18 17:17 STOMACH ciprofloxacin AdvReac Intermediate SICK TO Unverified 05/11/18 17:17 STOMACH clarithromycin AdvReac Intermediate SICK TO Unverified 05/11/18 17:17 STOMACH clavulanic acid AdvReac Intermediate SICK TO Unverified 05/11/18 17:17 STOMACH Home Medications Medication Instructions Recorded Confirmed Type aspirin [Aspir-81] 81 mg PO 08/25/18 History atorvastatin 40 mg PO DAILY 08/25/18 08/26/18 History cholecalciferol (vitamin D3) 2,000 unit PO DAILY 08/25/18 08/25/18 History [Vitamin D3] furosemide 20 mg PO DAILY 08/25/18 08/26/18 History levothyroxine 112 mcg 08/25/18 History metoprolol tartrate 50 mg PO BID 08/25/18 08/26/18 History hydrocodone-acetaminophen 1 tab PO DAILY PRN 08/26/18 08/26/18 History nifedipine 60 mg PO BID 08/26/18 08/26/18 History pantoprazole 20 mg PO DAILY 08/26/18 08/26/18 History Exam Vital signs: Vital Signs 08/25/18 21:32 08/26/18 01:00 08/26/18 03:00 Temperature 100.0 F H Pulse Rate 92 H 84 80 Respiratory Rate 19 24 24 Blood Pressure 131/58 L 156/67 H 136/63 Pulse Oximetry 94 L 90 L 90 L 08/26/18 07:15 08/26/18 07:32 08/26/18 09:36 Temperature 98.5 F Pulse Rate 78 82 80 Respiratory Rate 20 16 Blood Pressure 154/112 H 120/56 L Pulse Oximetry 93 L 94 L Intake & Output 08/25/18 08/26/18 08/26/18 18:59 06:59 18:59 Intake Total 1200 / 1200 500 / 500 Balance 1200 / 1200 500 / 500 Weight 86.183 kg Intake: IV 1200 / 1200 Maxipime Inj 2,000 MG In NS Inj 100 / 100 100 ML @ 200 mls/hr IV.SIG ONCE ONE Rx#:[id number] Magnesium Sulfate 1 gm/D5W 100 100 / 100 ml Premix 100 ML @ 100 mls/hr IV.SIG ONCE ONE Rx#:[id number] NS Inj 1,000 ML @ Wide Open IV. 1000 / 1000 SIG BOLUS ONE Rx#:[id number] Oral 500 / 500 Narrative: GENERAL: This is a well-nourished, well-developed patient, in no apparent distress. CARDIOVASCULAR: Regular rate and rhythm RESPIRATORY: Clear to auscultation. Breath sounds equal bilaterally. GASTROINTESTINAL: Abdomen soft, non-tender, nondistended. Normal active bowel sounds MUSCULOSKELETAL: Extremities without clubbing, cyanosis, or edema. NEURO: Alert & Oriented. Moves all ext x4 Results - Labs CBC & Chem 7: 08/26/18 17:26 08/26/18 17:26 Labs: Laboratory Results - last 24 hr 08/25/18 08/25/18 08/25/18 22:10 22:10 22:10 WBC 23.1 H RBC 4.28 Hgb 13.8 Hct 41.4 MCV 96.8 MCH 32.2 MCHC 33.2 RDW 12.7 Plt Count 254 MPV 9.6 Prelim Diff (Auto) Slide review pending Neut % (Auto) 76.8 H Lymph % (Auto) 9.0 Craven % (Auto) 13.2 H Eos % (Auto) 0.6 Baso % (Auto) 0.4 Neut # (Auto) 17.8 H Lymph # (Auto) 2.1 Craven # (Auto) 3.0 H Eos # (Auto) 0.1 Baso # (Auto) 0.1 WBC Differential Manual diff final Seg Neuts % (Manual) 70 Band Neuts % (Manual) 6 Lymphocytes % (Manual) 10 Monocytes % (Manual) 14 H Abs Neuts (Manual) 17.6 H Differential Comment . Platelet Estimate Normal Platelet Morphology Normal Ovalocytes 1+ H PT 10.3 INR 1.0 APTT 32.9 H Sodium 141 Potassium 3.9 Chloride 109 H Carbon Dioxide 18.0 L Anion Gap 14 BUN 20 H Creatinine 1.56 H Estimated GFR 32 L POC Glucose Random Glucose 206 H Lactic Acid Calcium 8.7 Magnesium 1.4 L Total Bilirubin 0.7 AST 25 ALT 31 Alkaline Phosphatase 111 Total Creatine Kinase 38 Troponin I 0.03 Total Protein 8.0 Albumin 3.2 L Lipase 75 Urine Color Urine Clarity Urine pH Ur Specific [place] Urine Protein Urine Glucose (UA) Urine Ketones Urine Occult Blood Urine Nitrate Urine Bilirubin Urine Urobilinogen Ur Leukocyte Esterase Urine RBC Urine WBC Ur Squamous Epith Cells Urine Bacteria Hyaline Casts Urine Mucus Micro UA Comment Ur Microscopic Review Urine Culture Comments 08/25/18 08/26/18 08/26/18 22:10 00:05 02:30 WBC RBC Hgb Hct MCV MCH MCHC RDW Plt Count MPV Prelim Diff (Auto) Neut % (Auto) Lymph % (Auto) Craven % (Auto) Eos % (Auto) Baso % (Auto) Neut # (Auto) Lymph # (Auto) Craven # (Auto) Eos # (Auto) Baso # (Auto) WBC Differential Seg Neuts % (Manual) Band Neuts % (Manual) Lymphocytes % (Manual) Monocytes % (Manual) Abs Neuts (Manual) Differential Comment Platelet Estimate Platelet Morphology Ovalocytes PT INR APTT Sodium Potassium Chloride Carbon Dioxide Anion Gap BUN Creatinine Estimated GFR POC Glucose Random Glucose Lactic Acid 2.2 H 2.5 H Calcium Magnesium Total Bilirubin AST ALT Alkaline Phosphatase Total Creatine Kinase Troponin I Total Protein Albumin Lipase Urine Color Yellow Urine Clarity Hazy H Urine pH 5.0 Ur Specific [place] 1.018 Urine Protein 100 H Urine Glucose (UA) Negative Urine Ketones Negative Urine Occult Blood Negative Urine Nitrate Negative Urine Bilirubin Negative Urine Urobilinogen Less than 2 Ur Leukocyte Esterase Trace H Urine RBC Less than 1 Urine WBC 10 H Ur Squamous Epith Cells 3 Urine Bacteria Rare H Hyaline Casts 3 Urine Mucus Few H Micro UA Comment Culture indicated Ur Microscopic Review Not Reportable Urine Culture Comments Culture indicated 08/26/18 08/26/18 04:30 09:35 WBC RBC Hgb Hct MCV MCH MCHC RDW Plt Count MPV Prelim Diff (Auto) Neut % (Auto) Lymph % (Auto) Craven % (Auto) Eos % (Auto) Baso % (Auto) Neut # (Auto) Lymph # (Auto) Craven # (Auto) Eos # (Auto) Baso # (Auto) WBC Differential Seg Neuts % (Manual) Band Neuts % (Manual) Lymphocytes % (Manual) Monocytes % (Manual) Abs Neuts (Manual) Differential Comment Platelet Estimate Platelet Morphology Ovalocytes PT INR APTT Sodium Potassium Chloride Carbon Dioxide Anion Gap BUN Creatinine Estimated GFR POC Glucose 154 H Random Glucose Lactic Acid Calcium Magnesium Total Bilirubin AST ALT Alkaline Phosphatase Total Creatine Kinase Troponin I 0.03 Total Protein Albumin Lipase Urine Color Urine Clarity Urine pH Ur Specific [place] Urine Protein Urine Glucose (UA) Urine Ketones Urine Occult Blood Urine Nitrate Urine Bilirubin Urine Urobilinogen Ur Leukocyte Esterase Urine RBC Urine WBC Ur Squamous Epith Cells Urine Bacteria Hyaline Casts Urine Mucus Micro UA Comment Ur Microscopic Review Urine Culture Comments - Imaging Impressions Chest X-Ray 08/25/18 22:02 CONCLUSION: No acute cardiopulmonary disease identified. Abdomen/Pelvis CT 08/25/18 22:03 CONCLUSION: 1. No acute findings in the abdomen and pelvis. 2. Colonic diverticulosis but no evidence of acute diverticulitis. Head CT 08/25/18 22:06 CONCLUSION: 1. No acute findings in the brain. 2. Ischemic change in the supratentorial white matter including a lacunar infarct, stable from prior. . Caprini VTE Risk Assessment Caprini VTE Risk Assessment: Moderate/High Risk (score >= 2) Caprini Risk Assessment Model: Point Value = 1 Point Value = 2 Point Value = 3 Point Value = 5 Age 41-60 Minor surgery BMI > 25 kg/m2 Swollen legs Varicose veins or History of unexplained or recurrent spontaneous Oral contraceptives or hormone replacement Sepsis (< 1 month) Serious lung disease, including pneumonia (< 1 month) Abnormal pulmonary function Acute myocardial infarction Congestive heart failure (< 1 month) History of inflammatory bowel disease Medical patient at bed rest Age 61-74 Arthroscopic surgery Major open surgery (> 45 min) Laparoscopic surgery (> 45 min) Malignancy Confined to bed (> 72 hours) Immobilizing plaster cast Central venous access Age >= 75 History of VTE Family history of VTE Factor V Leiden Prothrombin [id number] Lupus anticoagulant Anticardiolipin antibodies Elevated serum homocysteine Heparin-induced thrombocytopenia Other congenital or acquired thrombophilia Stroke (< 1 month) Elective arthroplasty Hip, pelvis, or leg fracture Acute spinal cord injury (< 1 month) Prophylaxis Regimen: Total Risk Factor Score Risk Level Prophylaxis Regimen 0-1 Low Early ambulation 2 Moderate Order ONE of the following: *Sequential Compression Device (SCD) *Heparin 5000 units SQ BID 3-4 Higher Order ONE of the following medications: *Heparin 5000 units SQ TID *Enoxaparin/Lovenox 40 mg SQ daily (WT < 150 kg, CrCl > 30 mL/min) *Enoxaparin/Lovenox 30 mg SQ daily (WT < 150 kg, CrCl > 10-29 mL/min) *Enoxaparin/Lovenox 30 mg SQ BID (WT < 150 kg, CrCl > 30 mL/min) AND/OR *Sequential Compression Device (SCD) 5 or more Highest Order ONE of the following medications: *Heparin 5000 units SQ TID (Preferred with Epidurals) *Enoxaparin/Lovenox 40 mg SQ daily (WT < 150 kg, CrCl > 30 mL/min) *Enoxaparin/Lovenox 30 mg SQ daily (WT < 150 kg, CrCl > 10-29 mL/min) *Enoxaparin/Lovenox 30 mg SQ BID (WT < 150 kg, CrCl > 30 mL/min) AND *Sequential Compression Device (SCD) Assessment and Plan - Plan This is an 78-year-old female patient with past medical history which includes HTN, DM, peripheral neuropathy, hypothyroidism, gout, hyperlipidemia, CKD osteoarthritis of multiple joints, lumbar degenerative disc disease, fibromyalgia and IBS. Patient reports that she had lower abdominal pain with diarrhea last week. Then today she rolled out of bed and hit her head on the night stand, denies LOC. Then patient reports about 1 hour after that she began to have Chest pain serial troponin 0.03 x 2 initial EKG Normal sinus rhythm nonspecific ST-T wave abnormalities on inferior leads. No signs of acute ME. Leukocytosis ? gastroenteritis/dehydration WBC on admission 23.1 Tmax 100.0 patient received cefepime x 1 in ER,will continue then reevaluate tomorrow UA revived and reveals: neg protein and neg nitrates, trace leukocyte Esterase urine culture pending CXR reviewed and reveals: No acute cardiopulmonary disease identified. CT Abdomen/pelvis reviewed and reveals: 1. No acute findings in the abdomen and pelvis. 2. Colonic diverticulosis but no evidence of acute diverticulitis. CT head reveiewed and reveals: 1. No acute findings in the brain. 2. Ischemic change in the supratentorial white matter including a lacunar infarct, stable from prior. recheck CBC and BMP HTN Continue patient's home nifedipine 60 mg PO BID and metoprolol 100 mg PO BID Hold patient's home losartan 50 mg PO daily DM Hold patient's home glimepiride 4 mg PO BID and hold patient's home levemir 20 units QAM and 15 units QHS accuchecks ACHS with SSI coverage Hypothyroidism Continue patient's home levothyroxine 137 mcg daily Hyperlipidemia Continue patient's home atorvastatin 80 mg daily DVT prophylaxis with SCDs <Augustine Clark - Last Filed: 09/05/18 22:42> History of Present Illness Primary Care Physician: Will Marc MD - Diagnosis (1) Leukocytosis (2) HTN (hypertension) (3) Diabetes mellitus (4) Hypotension (5) Hyperlipidemia Inpatient Certification: I certify that the inpatient services were ordered in accordance with Medicare regulations governing the order. This includes certification that hospital inpatient services are reasonable and necessary and in the case of services not specified as inpatient-only under 42 CFR 419.22(n), that they are appropriately provided as inpatient services in accordance to with the 2-midnight benchmark under 43 CFR 412.3(e) [facility] - Medical History Medical History: Medical History (Last Reviewed 08/26/18 @ 03:07 by Kadeem Mejia DO) Cataract Diabetes H/O: hysterectomy Hypertension Pulmonary fibrosis Stage 3 chronic kidney disease - Surgical History Surgical History: Surgical History (Last Reviewed 08/26/18 @ 03:07 by Kadeem Mejia DO) Hx of tonsillectomy Medications and Allergies Active Medications: Active Medications Hydrocodone Bitart/Acetaminophen (Ronks 5/325) 1 tab PO Q6H PRN PRN Reason: pain 1-10. Last Admin: 08/30/18 13:00 Dose: 1 tab Al Hydroxide/Mg Hydroxide (Milk Of Magnesia Liq) 30 ml PO DAILY PRN PRN Reason: MILD CONSTIPATION Last Admin: 08/27/18 18:16 Dose: 30 ml Aspirin (Ecotrin) 81 mg PO DAILY [facility] Last Admin: 08/30/18 09:54 Dose: 81 mg Atorvastatin Calcium (Lipitor) 40 mg PO DAILY [facility] Last Admin: 08/30/18 09:54 Dose: 40 mg Bisacodyl (Dulcolax Supp) 10 mg RECTAL DAILY PRN PRN Reason: severe constipation Dextrose (D50w Vial) 50 ml IV.PUSH UNSCH PRN PRN Reason: PER HYPOGLYCEMIA PROTOCOL Docusate Sodium (Colace) 100 mg PO BID [facility] Last Admin: 08/30/18 09:56 Dose: 100 mg Glucagon (Glucagon Inj) 1 mg OTHER PRN PRN PRN Reason: for Hypoglycemia Protocol Cefepime HCl 2,000 mg/ Sodium (Chloride) 100 mls @ 200 mls/hr IV.SIG Q12H [facility] Last Infusion: 08/30/18 06:48 Dose: Infused Insulin Aspart (Novolog Insulin [employer]al Sugar Inj) 0 unit SQ ACHS [facility]; Protocol Last Admin: 08/30/18 12:55 Dose: 4 unit Lactulose (Lactulose Liq) 30 ml PO DAILY PRN PRN Reason: Moderate constipation Levothyroxine Sodium (Synthroid) 112 mcg PO DAILY@0600 [facility] Last Admin: 08/30/18 06:18 Dose: 112 mcg Metoprolol Tartrate (Lopressor) 50 mg PO BID [facility] Last Admin: 08/30/18 09:54 Dose: 50 mg Nifedipine (Procardia Xl) 60 mg PO BID [facility] Last Admin: 08/30/18 09:54 Dose: 60 mg Ondansetron HCl (Zofran Odt) 4 mg PO Q6H PRN PRN Reason: NAUSEA OR VOMITING Last Admin: 08/27/18 13:29 Dose: 4 mg Results - Labs CBC & Chem 7: 08/30/18 05:35 08/30/18 05:35 Caprini VTE Risk Assessment Caprini Risk Assessment Model: Point Value = 1 Point Value = 2 Point Value = 3 Point Value = 5 Age 41-60 Minor surgery BMI > 25 kg/m2 Swollen legs Varicose veins or History of unexplained or recurrent spontaneous Oral contraceptives or hormone replacement Sepsis (< 1 month) Serious lung disease, including pneumonia (< 1 month) Abnormal pulmonary function Acute myocardial infarction Congestive heart failure (< 1 month) History of inflammatory bowel disease Medical patient at bed rest Age 61-74 Arthroscopic surgery Major open surgery (> 45 min) Laparoscopic surgery (> 45 min) Malignancy Confined to bed (> 72 hours) Immobilizing plaster cast Central venous access Age >= 75 History of VTE Family history of VTE Factor V Leiden Prothrombin [id number] Lupus anticoagulant Anticardiolipin antibodies Elevated serum homocysteine Heparin-induced thrombocytopenia Other congenital or acquired thrombophilia Stroke (< 1 month) Elective arthroplasty Hip, pelvis, or leg fracture Acute spinal cord injury (< 1 month) Prophylaxis Regimen: Total Risk Factor Score Risk Level Prophylaxis Regimen 0-1 Low Early ambulation 2 Moderate Order ONE of the following: *Sequential Compression Device (SCD) *Heparin 5000 units SQ BID 3-4 Higher Order ONE of the following medications: *Heparin 5000 units SQ TID *Enoxaparin/Lovenox 40 mg SQ daily (WT < 150 kg, CrCl > 30 mL/min) *Enoxaparin/Lovenox 30 mg SQ daily (WT < 150 kg, CrCl > 10-29 mL/min) *Enoxaparin/Lovenox 30 mg SQ BID (WT < 150 kg, CrCl > 30 mL/min) AND/OR *Sequential Compression Device (SCD) 5 or more Highest Order ONE of the following medications: *Heparin 5000 units SQ TID (Preferred with Epidurals) *Enoxaparin/Lovenox 40 mg SQ daily (WT < 150 kg, CrCl > 30 mL/min) *Enoxaparin/Lovenox 30 mg SQ daily (WT < 150 kg, CrCl > 10-29 mL/min) *Enoxaparin/Lovenox 30 mg SQ BID (WT < 150 kg, CrCl > 30 mL/min) AND *Sequential Compression Device (SCD) Assessment and Plan - Assessment (1) Leukocytosis Code(s): D72.829 - Elevated white blood cell count, unspecified Status: Acute (2) HTN (hypertension) Code(s): I10 - Essential (primary) hypertension Status: Acute (3) Diabetes mellitus Code(s): E11.9 - Type 2 diabetes mellitus without complications Status: Acute (4) Hypotension Code(s): I95.9 - Hypotension, unspecified Status: Acute (5) Hyperlipidemia Code(s): E78.5 - Hyperlipidemia, unspecified Status: Acute - Attending Attestation Patient examined. Assessment and plan formulated with Rachell HAYS I agree with the above.
[2018-08-26] MEDS ORDERED: Dextrose 50% in Water 50 ML Vial IV.PUSH PRN (16:03)
[2018-08-26] MEDS: Sodium Chloride 0.45 % Inj 1,000 ML IV.CONT SCH (18:04)
[2018-08-26] MEDS: Insulin NovoLOG Aspart Correctional Sugar Inj SQ SCH ×2 (18:13→22:16)
[2018-08-26 18:22] LABS: Baso # (Auto) 0.1 th/mm3 (0.0-0.2); Baso % (Auto) 0.3 % (0.0-2.0); Eos # (Auto) 0.1 th/mm3 (0.0-0.4); Eos % (Auto) 0.5 % (0.0-4.0); Hematocrit 39.5 % (35.0-46.0); Lymph # (Auto) 3.8 th/mm3 (1.0-4.8); Lymph % (Auto) 17.5 % (9.0-44.0); Mean Corpuscular HGB Conc 32.9 % (32.0-36.0); Mean Corpuscular Hemoglobin 32.1 pg (27.0-34.0); Mean Corpuscular Volume 97.7 fL (80.0-100.0); Mean Platelet Volume 10.2 fL (7.0-11.0); Mono # (Auto) 2.7 th/mm3 (0.0-0.9); Mono % (Auto) 12.5 % (0.0-8.0); Neut # (Auto) 14.9 th/mm3 (1.8-7.7); Neut % (Auto) 69.2 % (16.0-70.0); Platelet Count 221 th/mm3 (150-450); Red Blood Count 4.04 mil/mm3 (4.00-5.30); Red Cell Distribution Width 13.2 % (11.6-17.2); White Blood Count 21.5 th/mm3 (4.0-11.0)
[2018-08-26 18:38] LABS: Calcium 8.8 mg/dL (8.5-10.1); Carbon Dioxide 22.3 meq/L (21.0-32.0)
[2018-08-26 18:51] LABS: Platelet Estimate Normal (Normal); Platelet Morphology Normal (Normal); RBC Morphology Normal (Normal)
[2018-08-26] MEDS ORDERED: Gabapentin 300 MG Capsule PO SCH (21:00)
[2018-08-26] MEDS ORDERED: Metoprolol Tartrate 25 MG Tablet PO SCH (21:00)
--- NOTE | 2018-08-26 21:03 | ECG ---
Date Performed: 08/25/2018 Time Performed: 21:45:40 PTAGE: 78 years EKG: Sinus rhythm INFERIOR MYOCARDIAL INFARCTION ABNORMAL ECG PREVIOUS TRACING : 05/12/2018 00.15 Since the previous tracing, no significant change noted DOCTOR: Tom Delgadillo Interpretating Date/Time 08/26/2018 21:02:06
[2018-08-26] MEDS: Metoprolol Tartrate 25 MG Tablet PO SCH (21:42)
[2018-08-27] MEDS: Sodium Chloride 0.45 % Inj 1,000 ML IV.CONT SCH ×2 (05:35→17:51)
[2018-08-27] MEDS: Levothyroxine 112 MCG Tablet PO SCH (05:36)
[2018-08-27 07:12] LABS: Baso # (Auto) 0.1 th/mm3 (0.0-0.2); Baso % (Auto) 0.4 % (0.0-2.0); Eos # (Auto) 0.2 th/mm3 (0.0-0.4); Eos % (Auto) 0.9 % (0.0-4.0); Hemoglobin 11.7 gm/dL (11.6-15.3); Lymph # (Auto) 3.2 th/mm3 (1.0-4.8); Lymph % (Auto) 17.3 % (9.0-44.0); Mean Corpuscular HGB Conc 33.5 % (32.0-36.0); Mean Corpuscular Hemoglobin 32.9 pg (27.0-34.0); Mean Corpuscular Volume 98.3 fL (80.0-100.0); Mean Platelet Volume 10.2 fL (7.0-11.0); Mono # (Auto) 2.4 th/mm3 (0.0-0.9); Mono % (Auto) 13.2 % (0.0-8.0); Neut # (Auto) 12.5 th/mm3 (1.8-7.7); Neut % (Auto) 68.2 % (16.0-70.0); Platelet Count 207 th/mm3 (150-450); Red Blood Count 3.56 mil/mm3 (4.00-5.30); Red Cell Distribution Width 13.1 % (11.6-17.2); White Blood Count 18.3 th/mm3 (4.0-11.0)
[2018-08-27 07:50] LABS: Alanine Aminotransferase 19 U/L (10-53); Albumin 2.3 g/dL (3.4-5.0); Alkaline Phosphatase 85 U/L (45-117); Anion Gap 9 meq/L (5-15); Aspartate Aminotransferase 16 U/L (15-37); Blood Urea Nitrogen 25 mg/dL (7-18); Calcium 8.5 mg/dL (8.5-10.1); Carbon Dioxide 20.3 meq/L (21.0-32.0); Chloride 109 meq/L (98-107); Glomerular Filtration Rate 34 mL/min (>89); Glucose,Random 139 mg/dL (74-106); Sodium 138 meq/L (136-145); Total Protein 6.7 g/dL (6.4-8.2)
[2018-08-27 08:32] LABS: Platelet Estimate Normal (Normal); Platelet Morphology Normal (Normal)
[2018-08-27] MEDS ORDERED: Non-Formulary Drug (Levothyroxine [Levothyroxine] 137 MCG) PO SCH (09:00)
[2018-08-27] MEDS ORDERED: Gabapentin 100 MG Capsule PO SCH (09:00)
[2018-08-27] MEDS: Metoprolol Tartrate 25 MG Tablet PO SCH ×2 (09:17→22:31)
[2018-08-27] MEDS: Insulin NovoLOG Aspart Correctional Sugar Inj SQ SCH ×4 (09:18→22:31)
[2018-08-27] MEDS ORDERED: Bisacodyl 10 MG Supp RECTAL PRN (11:13)
[2018-08-27] MEDS: Docusate Sodium 100 MG Capsule PO SCH ×2 (11:52→22:31)
--- NOTE | 2018-08-27 14:47 | P.DCO ---
- Physical Therapy Order: Evaluate and treat - Home Health Nursing Order: Medical education, Nursing assessment with vital signs - Case Management Consult No - Certification I have seen patient Magali Hermosillo on 08/27/18. My clinical findings support the need for the requested home health care services because: Medication compliance is questionable I certify that my clinical findings support that this patient is homebound because: Unsteady gait/balance
[2018-08-27 15:56] LABS: Baso # (Auto) 0.1 th/mm3 (0.0-0.2); Baso % (Auto) 0.3 % (0.0-2.0); Eos # (Auto) 0.3 th/mm3 (0.0-0.4); Eos % (Auto) 2.1 % (0.0-4.0); Hematocrit 34.9 % (35.0-46.0); Hemoglobin 11.7 gm/dL (11.6-15.3); Lymph # (Auto) 2.2 th/mm3 (1.0-4.8); Lymph % (Auto) 13.6 % (9.0-44.0); Mean Corpuscular HGB Conc 33.5 % (32.0-36.0); Mean Corpuscular Hemoglobin 32.6 pg (27.0-34.0); Mean Corpuscular Volume 97.3 fL (80.0-100.0); Mean Platelet Volume 10.5 fL (7.0-11.0); Mono # (Auto) 1.8 th/mm3 (0.0-0.9); Neut # (Auto) 11.9 th/mm3 (1.8-7.7); Platelet Count 203 th/mm3 (150-450); Red Blood Count 3.59 mil/mm3 (4.00-5.30); White Blood Count 16.4 th/mm3 (4.0-11.0)
--- NOTE | 2018-08-27 16:50 | P.PNIM ---
Subjective Interval history: Patient had intermitted nausea today last BM 08/24 - bowel regiment offered. Patient willing to take Colace only Physical Exam Vital signs: 08/27/18 08:00 08/27/18 08:56 08/27/18 09:00 Temperature 98.4 F Pulse Rate 79 75 Respiratory Rate 16 Blood Pressure 144/60 H Pulse Oximetry 93 L 97 08/27/18 12:00 Temperature 98.2 F Pulse Rate 82 Respiratory Rate 16 Blood Pressure 125/58 L Pulse Oximetry 94 L Narrative: GENERAL: This is a well-nourished, well-developed patient, in no apparent distress. CARDIOVASCULAR: Regular rate and rhythm RESPIRATORY: Clear to auscultation. Breath sounds equal bilaterally. GASTROINTESTINAL: Abdomen soft, non-tender, nondistended. Normal active bowel sounds MUSCULOSKELETAL: Extremities without clubbing, cyanosis, or edema. NEURO: Alert & Oriented. Moves all ext x4 Results - Labs CBC & Chem 7: 08/30/18 05:35 08/30/18 05:35 Microbiology 08/26/18 00:05 Clean Catch Urine Urine Culture - Preliminary Immature growth - reincubate 08/25/18 22:10 Blood - Peripheral Aerobic Blood Culture - Preliminary No growth in 2 days 08/25/18 22:10 Blood - Peripheral Anaerobic Blood Culture - Preliminary No growth in 2 days 08/25/18 22:05 Blood - Peripheral Aerobic Blood Culture - Preliminary No growth in 2 days 08/25/18 22:05 Blood - Peripheral Anaerobic Blood Culture - Preliminary No growth in 2 days Assessment and Plan - Assessment (1) Leukocytosis Code(s): D72.829 - Elevated white blood cell count, unspecified Status: Acute Plan: This is an 78-year-old female patient with past medical history which includes HTN, DM, peripheral neuropathy, hypothyroidism, gout, hyperlipidemia, CKD osteoarthritis of multiple joints, lumbar degenerative disc disease, fibromyalgia and IBS. Patient reports that she had lower abdominal pain with diarrhea last week. Then today she rolled out of bed and hit her head on the night stand, denies LOC. Then patient reports about 1 hour after that she began to have Chest pain - resolved serial troponin 0.03 x 2, 0.02 x 1 initial EKG Normal sinus rhythm nonspecific ST-T wave abnormalities on inferior leads. No signs of acute AK. Leukocytosis viral illness./? gastroenteritis/dehydration WBC on admission 23.1 -> 21.5 (08/26) -> 18.3 (08/27) -> 16.4 (08/27) Tmax 101.7 (08/26) 1907 patient received cefepime x 1 in ER,will continue then reevaluate tomorrow UA revived and reveals: neg protein and neg nitrates, trace leukocyte Esterase urine culture pending CXR reviewed and reveals: No acute cardiopulmonary disease identified. CT Abdomen/pelvis reviewed and reveals: 1. No acute findings in the abdomen and pelvis. 2. Colonic diverticulosis but no evidence of acute diverticulitis. CT head reveiewed and reveals: 1. No acute findings in the brain. 2. Ischemic change in the supratentorial white matter including a lacunar infarct, stable from prior. recheck CBC in AM HTN Continue patient's home nifedipine 60 mg PO BID and metoprolol 50 mg PO BID DM Hold patient's home glimepiride 4 mg PO BID and hold patient's home levemir 20 units QAM and 15 units QHS accuchecks ACHS with SSI coverage Hypothyroidism Continue patient's home levothyroxine 112 mcg daily Hyperlipidemia Continue patient's home atorvastatin 40 mg daily Constipation bowel regiment Milk of magnesia x 1 DVT prophylaxis with SCDs (2) HTN (hypertension) Code(s): I10 - Essential (primary) hypertension Status: Acute (3) Diabetes mellitus Code(s): E11.9 - Type 2 diabetes mellitus without complications Status: Acute (4) Hypotension Code(s): I95.9 - Hypotension, unspecified Status: Acute (5) Hyperlipidemia Code(s): E78.5 - Hyperlipidemia, unspecified Status: Acute - Attending Attestation Patient examined. Assessment and plan formulated with Rachell HAYS I agree with the above.
[2018-08-28] MEDS: Sodium Chloride 0.45 % Inj 1,000 ML IV.CONT SCH (06:05)
[2018-08-28] MEDS: Levothyroxine 112 MCG Tablet PO SCH (06:06)
[2018-08-28] MEDS: Insulin NovoLOG Aspart Correctional Sugar Inj SQ SCH ×4 (09:36→20:12)
[2018-08-28] MEDS: Metoprolol Tartrate 25 MG Tablet PO SCH ×2 (09:37→20:12)
[2018-08-28] MEDS: Docusate Sodium 100 MG Capsule PO SCH ×2 (09:38→20:12)
[2018-08-28 11:26] LABS: Baso # (Auto) 0.1 th/mm3 (0.0-0.2); Baso % (Auto) 0.7 % (0.0-2.0); Eos # (Auto) 0.3 th/mm3 (0.0-0.4); Eos % (Auto) 1.7 % (0.0-4.0); Hematocrit 34.6 % (35.0-46.0); Hemoglobin 11.8 gm/dL (11.6-15.3); Lymph # (Auto) 2.3 th/mm3 (1.0-4.8); Mean Corpuscular Hemoglobin 32.5 pg (27.0-34.0); Mean Corpuscular Volume 95.6 fL (80.0-100.0); Mean Platelet Volume 10.1 fL (7.0-11.0); Mono # (Auto) 1.5 th/mm3 (0.0-0.9); Mono % (Auto) 9.6 % (0.0-8.0); Neut # (Auto) 11.4 th/mm3 (1.8-7.7); Platelet Count 246 th/mm3 (150-450); Red Blood Count 3.62 mil/mm3 (4.00-5.30); Red Cell Distribution Width 12.8 % (11.6-17.2); White Blood Count 15.6 th/mm3 (4.0-11.0)
--- NOTE | 2018-08-28 16:04 | P.PNIM ---
Subjective Interval history: Patient reports feeling better today asking to go home tolerating PO reports large BM this afternoon Physical Exam Vital signs: Vital Signs 08/27/18 16:00 08/27/18 19:35 08/27/18 20:00 Temperature 99.5 F Pulse Rate 88 95 H 95 H Respiratory Rate 16 18 Blood Pressure 136/57 L 143/67 H Pulse Oximetry 89 L 90 L 08/27/18 23:40 08/28/18 03:20 08/28/18 07:35 Temperature 99.9 F H 99.7 F H 98.9 F Pulse Rate 92 H 89 83 Respiratory Rate 20 18 16 Blood Pressure 162/71 H 125/60 146/67 H Pulse Oximetry 92 L 90 L 91 L 08/28/18 09:00 08/28/18 11:31 Temperature 98.5 F Pulse Rate 95 H 72 Respiratory Rate 18 Blood Pressure 144/67 H Pulse Oximetry 93 L Intake & Output 08/27/18 08/28/18 08/28/18 18:59 06:59 18:59 Intake Total 1100 / 1100 1340 / 1340 Balance 1100 / 1100 1340 / 1340 Intake: IV 1100 / 1100 1100 / 1100 1/2 Normal Saline Inj 1,000 ML 1000 / 1000 1000 / 1000 @ 84 mls/hr IV.CONT .[id number] [facility] Rx#:[id number] Maxipime Inj 2,000 MG In NS Inj 100 / 100 100 / 100 100 ML @ 200 mls/hr IV.SIG Q12H [facility] Rx#:[id number] Oral 240 / 240 Other: # Voids 4 Date of Last Bowel Movement 08/24/18 08/24/18 08/24/18 Narrative: GENERAL: This is a well-nourished, well-developed patient, in no apparent distress. CARDIOVASCULAR: Regular rate and rhythm RESPIRATORY: Clear to auscultation. Breath sounds equal bilaterally. GASTROINTESTINAL: Abdomen soft, non-tender, nondistended. Normal active bowel sounds MUSCULOSKELETAL: Extremities without clubbing, cyanosis, or edema. NEURO: Alert & Oriented. Moves all ext x4 Results - Labs CBC & Chem 7: 08/30/18 05:35 08/30/18 05:35 Microbiology 08/25/18 22:10 Blood - Peripheral Aerobic Blood Culture - Preliminary No growth in 3 days 08/25/18 22:10 Blood - Peripheral Anaerobic Blood Culture - Preliminary No growth in 3 days 08/25/18 22:05 Blood - Peripheral Aerobic Blood Culture - Preliminary No growth in 3 days 08/25/18 22:05 Blood - Peripheral Anaerobic Blood Culture - Preliminary No growth in 3 days 08/26/18 00:05 Clean Catch Urine Urine Culture - Final 10-50,000 cfu/mL mixed gram positive torito (probable contaminants) Assessment and Plan - Assessment (1) Leukocytosis Code(s): D72.829 - Elevated white blood cell count, unspecified Status: Acute Plan: This is an 78-year-old female patient with past medical history which includes HTN, DM, peripheral neuropathy, hypothyroidism, gout, hyperlipidemia, CKD osteoarthritis of multiple joints, lumbar degenerative disc disease, fibromyalgia and IBS. Patient reports that she had lower abdominal pain with diarrhea last week. Then today she rolled out of bed and hit her head on the night stand, denies LOC. Then patient reports about 1 hour after that she began to have Chest pain - resolved serial troponin 0.03 x 2, 0.02 x 1 initial EKG Normal sinus rhythm nonspecific ST-T wave abnormalities on inferior leads. No signs of acute PR. Leukocytosis ? source WBC on admission 23.1 -> 21.5 (08/26) -> 18.3 (08/27) -> 16.4 (08/27) -> 15.6 (08/28 ) Tmax 101.7 (08/26) 1907 patient received cefepime x 1 in ER,will continue UA revived and reveals: neg protein and neg nitrates, trace leukocyte Esterase urine culture pending CXR reviewed and reveals: No acute cardiopulmonary disease identified. CT Abdomen/pelvis reviewed and reveals: 1. No acute findings in the abdomen and pelvis. 2. Colonic diverticulosis but no evidence of acute diverticulitis. CT head reviewed and reveals: 1. No acute findings in the brain. 2. Ischemic change in the supratentorial white matter including a lacunar infarct, stable from prior. Blood cultures no growth x 3 days Urine Culture 10-50,000 cfu/mL mixed gram positive torito (probable contaminants) recheck CBC in AM HTN Continue patient's home nifedipine 60 mg PO BID and metoprolol 50 mg PO BID DM Hold patient's home glimepiride 4 mg PO BID and hold patient's home levemir 20 units QAM and 15 units QHS accuchecks ACHS with SSI coverage Hypothyroidism Continue patient's home levothyroxine 112 mcg daily Hyperlipidemia Continue patient's home atorvastatin 40 mg daily Constipation - resolved patient reports large BM this afternoon bowel regiment Milk of magnesia x 1 DVT prophylaxis with SCDs (2) HTN (hypertension) Code(s): I10 - Essential (primary) hypertension Status: Acute (3) Diabetes mellitus Code(s): E11.9 - Type 2 diabetes mellitus without complications Status: Acute (4) Hypotension Code(s): I95.9 - Hypotension, unspecified Status: Acute (5) Hyperlipidemia Code(s): E78.5 - Hyperlipidemia, unspecified Status: Acute - Attending Attestation Patient examined. Assessment and plan formulated with Rachell HAYS I agree with the above.
--- NOTE | 2018-08-28 16:11 | P.DS ---
<Rachell Vaz W - Last Filed: 08/30/18 12:36> Date of admission: 08/26/18 03:47 Primary care physician: Will Marc MD Attending physician on discharge: Augustine Clark Brief History from admission: This is an 78-year-old female patient with past medical history which includes HTN, DM, peripheral neuropathy, hypothyroidism, gout, hyperlipidemia, CKD stage 3, pulmonary fibrosis follows with Dr. Sparks, osteoarthritis of multiple joints , lumbar degenerative disc disease, fibromyalgia, IBS, diverticulosis, GERD and gastroparesis. Information gathered from patient as Patient reports that she had lower abdominal pain with diarrhea last week. Patient had endoscopy last week at [facility] with Dr. Ku, per family the endoscopy revealed severe diverticulosis. Information from family member in the room. Patient's daughter reports that yesterday the patient c/o pain from her chin to her belly button yesterday then she laid down. Then patient rolled out of bed and hit her head on the night stand, denies LOC. At this time patient reports that she has IBS and has had both constipation and diarrhea. Patient does endorse poor PO intake due to lack of appetite. Patient denies SOB, N/V or diarrhea at this time. Past Medical History HTN, DM, peripheral neuropathy, hypothyroidism, gout, hyperlipidemia, CKD and IBS Past Surgical History Appendectomy, cataract surgery, hysterectomy wit oophorectomy, tonsillectomy and adenoidectomy as a child Family History reviewed and noncontributory Social History denies ETOH, Tobacco use or illicit drug use DS: Diagnosis - Discharge Diagnosis (1) Leukocytosis Status: Acute (2) HTN (hypertension) Status: Acute (3) Diabetes mellitus Status: Acute (4) Hypotension Status: Acute (5) Hyperlipidemia Status: Acute DS: Medications - Discharge Medications Prescriptions: glimepiride 2 mg PO BID 30 Days #120 tab DS: Summary Hospital Course: This is an 78-year-old female patient with past medical history which includes HTN, DM, peripheral neuropathy, hypothyroidism, gout, hyperlipidemia, CKD osteoarthritis of multiple joints, lumbar degenerative disc disease, fibromyalgia and IBS. Patient reports that she had lower abdominal pain with diarrhea last week. Then today she rolled out of bed and hit her head on the night stand, denies LOC. Then patient reports about 1 hour after that she began to have Chest pain - resolved serial troponin 0.03 x 2, 0.02 x 1 initial EKG Normal sinus rhythm nonspecific ST-T wave abnormalities on inferior leads. No signs of acute ME. Leukocytosis ? source WBC on admission 23.1 -> 21.5 (08/26) -> 18.3 (08/27) -> 16.4 (08/27) -> 15.6 (08/28 ) -> 13.7 (08/29) -> 13.5 (08/30) Tmax 101.7 (08/26) 1907 patient received cefepime x 1 in ER,will continue UA revived and reveals: neg protein and neg nitrates, trace leukocyte Esterase urine culture pending CXR reviewed and reveals: No acute cardiopulmonary disease identified. CT Abdomen/pelvis reviewed and reveals: 1. No acute findings in the abdomen and pelvis. 2. Colonic diverticulosis but no evidence of acute diverticulitis. CT head reviewed and reveals: 1. No acute findings in the brain. 2. Ischemic change in the supratentorial white matter including a lacunar infarct, stable from prior. Blood cultures no growth x 4 days Urine Culture 10-50,000 cfu/mL mixed gram positive torito (probable contaminants) Hand pain - scapholunate ligament injury Elbow X-Ray 08/29/18 00:00 No evidence of fracture or dislocation. Hand X-Ray 08/29/18 00:00 1. No acute fracture identified. 2. Widening of the scapholunate distance suggesting scapholunate ligament injury. Chronicity of this is uncertain. Wrist X-Ray 08/29/18 00:00 No evidence of recent bony injury. Hand and wrist MRI completed report not yet available patient to follow up with outpatient hand surgery Hypoxia DC with home oxygen HTN Continue patient's home nifedipine 60 mg PO BID and metoprolol 50 mg PO BID DM Hold patient's home glimepiride 4 mg PO BID and hold patient's home levemir 20 units QAM and 15 units QHS patient started back on glimepiride 2 mg PO BID and advised to keep glucose log and follow up with PCP accuchecks ACHS with SSI coverage Hypothyroidism Continue patient's home levothyroxine 112 mcg daily Hyperlipidemia Continue patient's home atorvastatin 40 mg daily Constipation - resolved patient reports large BM this afternoon bowel regiment Milk of magnesia x 1 DVT prophylaxis with SCDs Will DC home with HHC, follow up with PCP on Friday and due to multiple abx allergies will DC home on azithromycin x 5 days Patient also asked to follow up with hand surgery - Time Spent with Patient Total time spent providing and/or coordinating discharge services: Greater than 30 minutes - Quality: VTE Deep Vein Thrombosis/Pulmonary Embolism Present on Admission: No Exam Vital signs: Vital Signs 08/27/18 19:35 08/27/18 20:00 08/27/18 23:40 Temperature 99.5 F 99.9 F H Pulse Rate 95 H 95 H 92 H Respiratory Rate 18 20 Blood Pressure 143/67 H 162/71 H Pulse Oximetry 90 L 92 L 08/28/18 03:20 08/28/18 07:35 08/28/18 09:00 Temperature 99.7 F H 98.9 F Pulse Rate 89 83 95 H Respiratory Rate 18 16 Blood Pressure 125/60 146/67 H Pulse Oximetry 90 L 91 L 08/28/18 11:31 Temperature 98.5 F Pulse Rate 72 Respiratory Rate 18 Blood Pressure 144/67 H Pulse Oximetry 93 L Intake & Output 08/27/18 08/28/18 08/28/18 18:59 06:59 18:59 Intake Total 1100 / 1100 1340 / 1340 Balance 1100 / 1100 1340 / 1340 Intake: IV 1100 / 1100 1100 / 1100 1/2 Normal Saline Inj 1,000 ML 1000 / 1000 1000 / 1000 @ 84 mls/hr IV.CONT .[id number] [facility] Rx#:[id number] Maxipime Inj 2,000 MG In NS Inj 100 / 100 100 / 100 100 ML @ 200 mls/hr IV.SIG Q12H [facility] Rx#:[id number] Oral 240 / 240 Other: # Voids 4 Date of Last Bowel Movement 08/24/18 08/24/18 08/24/18 Narrative: GENERAL: This is a well-nourished, well-developed patient, in no apparent distress. CARDIOVASCULAR: Regular rate and rhythm RESPIRATORY: Clear to auscultation. Breath sounds equal bilaterally. GASTROINTESTINAL: Abdomen soft, non-tender, nondistended. Normal active bowel sounds MUSCULOSKELETAL: Extremities without clubbing, cyanosis, or edema. NEURO: Alert & Oriented. Moves all ext x4 Results Procedures completed during hospitalization: None Labs on day of discharge: Labs from last 24 hours 08/28/18 08/28/18 08/28/18 13:45 11:06 09:32 WBC 15.6 H RBC 3.62 L Hgb 11.8 Hct 34.6 L MCV 95.6 MCH 32.5 MCHC 34.0 RDW 12.8 Plt Count 246 MPV 10.1 Neut % (Auto) 73.0 H Lymph % (Auto) 15.0 Winkler % (Auto) 9.6 H Eos % (Auto) 1.7 Baso % (Auto) 0.7 Neut # (Auto) 11.4 H Lymph # (Auto) 2.3 Winkler # (Auto) 1.5 H Eos # (Auto) 0.3 Baso # (Auto) 0.1 WBC Differential . Differential Comment Auto diff final POC Glucose 188 H 170 H 08/27/18 18:14 WBC RBC Hgb Hct MCV MCH MCHC RDW Plt Count MPV Neut % (Auto) Lymph % (Auto) Winkler % (Auto) Eos % (Auto) Baso % (Auto) Neut # (Auto) Lymph # (Auto) Winkler # (Auto) Eos # (Auto) Baso # (Auto) WBC Differential Differential Comment POC Glucose 138 H Preliminary micro results at discharge 08/25/18 22:10 Aerobic Blood Culture - Preliminary Blood - Peripheral No growth in 3 days Anaerobic Blood Culture - Preliminary No growth in 3 days 08/25/18 22:05 Aerobic Blood Culture - Preliminary Blood - Peripheral No growth in 3 days Anaerobic Blood Culture - Preliminary No growth in 3 days - Impressions ITS Impressions Chest X-Ray 08/25/18 22:02 CONCLUSION: No acute cardiopulmonary disease identified. Abdomen/Pelvis CT 08/25/18 22:03 CONCLUSION: 1. No acute findings in the abdomen and pelvis. 2. Colonic diverticulosis but no evidence of acute diverticulitis. Head CT 08/25/18 22:06 CONCLUSION: 1. No acute findings in the brain. 2. Ischemic change in the supratentorial white matter including a lacunar infarct, stable from prior. . <Augustine Clark - Last Filed: 09/05/18 22:43> Date of admission: 08/28/18 16:23 Primary care physician: Will Marc MD DS: Diagnosis - Discharge Diagnosis (1) Leukocytosis Status: Acute (2) HTN (hypertension) Status: Acute (3) Diabetes mellitus Status: Acute (4) Hypotension Status: Acute (5) Hyperlipidemia Status: Acute DS: Summary Hospital Course: Patient examined. Assessment and plan formulated with Rachell Vaz PA-C. I agree with the above. - Time Spent with Patient Total time spent providing and/or coordinating discharge services: Results - Impressions ITS Impressions Chest X-Ray 08/25/18 22:02 CONCLUSION: No acute cardiopulmonary disease identified. Abdomen/Pelvis CT 08/25/18 22:03 CONCLUSION: 1. No acute findings in the abdomen and pelvis. 2. Colonic diverticulosis but no evidence of acute diverticulitis. Head CT 08/25/18 22:06 CONCLUSION: 1. No acute findings in the brain. 2. Ischemic change in the supratentorial white matter including a lacunar infarct, stable from prior. . Elbow X-Ray 08/29/18 00:00 CONCLUSION: No evidence of fracture or dislocation. Hand X-Ray 08/29/18 00:00 CONCLUSION: 1. No acute fracture identified. 2. Widening of the scapholunate distance suggesting scapholunate ligament injury. Chronicity of this is uncertain. Wrist X-Ray 08/29/18 00:00 CONCLUSION: No evidence of recent bony injury. Hand MRI 08/30/18 00:00 CONCLUSION: Osteoarthritic findings thumb. Wrist MRI 08/30/18 00:00 CONCLUSION: 1. Scapholunate ligament intact. 2. Osteoarthritic findings of the wrist most prominent at the thumb CMC joint. Findings are also seen at the STT joint and radiocarpal joint with proximal pole subchondral arthritic changes at the lunate and triquetrum. 3. Mild flexor and extensor digitorum tenosynovitis. 4. Perforation of the lunotriquetral ligament. Discharge Plan - Discharge Order Discharge Orders: Discharge Order (Routine); Ordered 08/30/18 Ordered By: Rachell Vaz - Discharge Details Anticipated Discharge Date: 08/30/18 - Physicians Team Primary Care Provider: Will Marc Attending Provider: Augustine Clark
[2018-08-29 05:18] LABS: Baso % (Auto) 0.4 % (0.0-2.0); Eos # (Auto) 0.4 th/mm3 (0.0-0.4); Eos % (Auto) 2.7 % (0.0-4.0); Hemoglobin 11.7 gm/dL (11.6-15.3); Lymph # (Auto) 2.3 th/mm3 (1.0-4.8); Lymph % (Auto) 16.4 % (9.0-44.0); Mean Corpuscular HGB Conc 33.5 % (32.0-36.0); Mean Corpuscular Hemoglobin 32.4 pg (27.0-34.0); Mean Corpuscular Volume 96.7 fL (80.0-100.0); Mean Platelet Volume 10.1 fL (7.0-11.0); Mono # (Auto) 1.4 th/mm3 (0.0-0.9); Mono % (Auto) 10.5 % (0.0-8.0); Neut # (Auto) 9.6 th/mm3 (1.8-7.7); Platelet Count 258 th/mm3 (150-450); Red Blood Count 3.62 mil/mm3 (4.00-5.30); Red Cell Distribution Width 12.7 % (11.6-17.2); White Blood Count 13.7 th/mm3 (4.0-11.0)
[2018-08-29] MEDS: Levothyroxine 112 MCG Tablet PO SCH (05:40)
[2018-08-29] MEDS: Insulin NovoLOG Aspart Correctional Sugar Inj SQ SCH ×4 (09:40→21:46)
[2018-08-29] MEDS: Docusate Sodium 100 MG Capsule PO SCH ×2 (09:41→21:45)
[2018-08-29] MEDS: Metoprolol Tartrate 25 MG Tablet PO SCH ×2 (09:41→21:45)
--- NOTE | 2018-08-29 18:02 | XR ---
EXAM DATE: 08/29/2018 12:00 AM EDT AGE/SEX: 78 years / Female INDICATIONS: Left hand bruising. Fall 4 days ago. CLINICAL DATA: This is the patient's subsequent encounter. Patient reports that signs and symptoms h ave been present for 1 day and indicates a pain score of 4/10. MEDICAL/SURGICAL HISTORY: . Hypercholesterolemia. Hypertension. Hypothyroidism. Congestive hear t failure. Chronic kidney disease, stage III. Arthritis. Anemia. Diabetes. Gastroparesis. . Tonsil lectomy. Hysterectomy. Cardiac catheterization COMPARISON: No prior exams available for comparison. FINDINGS: The bony mineralization is within normal limits. Alignment is anatomic. There are degenerative change s in the proximal and distal interphalangeal joints of all 5 digits. There are degenerative changes i n the carpometacarpal joint the base of the thumb. No acute fracture seen. The examination does demonstrate widening of the scapholunate distance suggesting scapholunate ligame nt injury. CONCLUSION: 1. No acute fracture identified. 2. Widening of the scapholunate distance suggesting scapholunate ligament injury. Chronicity of this is uncertain. Electronically signed by: Orville Pope MD 08/29/2018 6:01 PM EDT
--- NOTE | 2018-08-29 18:02 | XR ---
EXAM DATE: 08/29/2018 12:00 AM EDT AGE/SEX: 78 years / Female INDICATIONS: Fall four days ago. Left elbow pain since last night. CLINICAL DATA: This is the patient's subsequent encounter. Patient reports that signs and symptoms h ave been present for 1 day and indicates a pain score of 6/10. MEDICAL/SURGICAL HISTORY: . Cardiovascular disease. Hypertension. Renal failure, chronic. Diabe nancie Gastroparesis Hiatal hernia . Appendectomy. Hysterectomy COMPARISON: No prior exams available for comparison. FINDINGS: 4 views were performed including a frontal and oblique views; there is no lateral view which limits e valuation for effusion. Bony structures are intact and in normal alignment. Joints are intact withou t dislocation or significant arthropathy. Osseous density is normal. Soft tissues are unremarkable. No radiopaque foreign bodies seen. CONCLUSION: No evidence of fracture or dislocation. Electronically signed by: Bharath Bernard MD 08/29/2018 6:00 PM EDT
--- NOTE | 2018-08-29 18:03 | XR ---
EXAM DATE: 08/29/2018 12:00 AM EDT AGE/SEX: 78 years / Female INDICATIONS: Left wrist pain. Fall 4 days ago. CLINICAL DATA: This is the patient's subsequent encounter. Patient reports that signs and symptoms h ave been present for 1 day and indicates a pain score of 4/10. MEDICAL/SURGICAL HISTORY: . Hypercholesterolemia. Hypertension. Hypothyroidism. Congestive hear t failure. Chronic kidney disease, stage III. Arthritis. Anemia. Diabetes. Gastroparesis. . Tonsill ectomy. Hysterectomy. Cardiac catheterization COMPARISON: No prior exams available for comparison. FINDINGS: Bony structures are intact and in normal alignment. Joints are intact without dislocation or signifi cant arthropathy. Osseous density is diffusely decreased. Diffuse vascular calcification. No radiop aque foreign bodies seen. CONCLUSION: No evidence of recent bony injury. Electronically signed by: Bharath Bernard MD 08/29/2018 6:02 PM EDT
--- NOTE | 2018-08-29 19:01 | P.PNIM ---
Subjective Interval history: Follow up: Leukocytosis ? source, Hand pain, Hypoxia Patient completed walk test and requires home oxygen Patient c/o edema and pain left hand, wrist and elbow Physical Exam Vital signs: Vital Signs 08/28/18 20:00 08/28/18 23:08 08/29/18 00:00 Temperature 99 F Pulse Rate 101 H 98 H 95 H Respiratory Rate 18 Blood Pressure 148/72 H Pulse Oximetry 98 95 Pulse Oximetry [Exertion on Room Air] Pulse Oximetry [Exertion with Oxygen] Pulse Oximetry [Resting on Room Air] 08/29/18 03:44 08/29/18 08:00 08/29/18 09:00 Temperature 99.2 F 98.7 F Pulse Rate 99 H 84 86 Respiratory Rate 20 16 Blood Pressure 158/72 H 158/68 H Pulse Oximetry 93 L 90 L Pulse Oximetry [Exertion on Room Air] Pulse Oximetry [Exertion with Oxygen] Pulse Oximetry [Resting on Room Air] 08/29/18 12:00 08/29/18 13:48 08/29/18 16:00 Temperature 98.9 F 99.1 F Pulse Rate 77 98 H Respiratory Rate 16 16 Blood Pressure 161/71 H 165/71 H Pulse Oximetry 91 L 94 L 92 L Pulse Oximetry [Exertion on Room Air] Pulse Oximetry [Exertion with Oxygen] Pulse Oximetry [Resting on Room Air] 08/29/18 17:10 Temperature Pulse Rate Respiratory Rate Blood Pressure Pulse Oximetry Pulse Oximetry [Exertion on Room Air] 87 L Pulse Oximetry [Exertion with Oxygen] 93 L Pulse Oximetry [Resting on Room Air] 92 L Intake & Output 08/28/18 08/29/18 08/29/18 18:59 06:59 18:59 Intake Total 1000 / 1000 120 / 120 100 / 100 Balance 1000 / 1000 120 / 120 100 / 100 Intake: IV 1000 / 1000 0 / 0 100 / 100 Maxipime Inj 2,000 MG In NS Inj 0 / 0 100 / 100 100 ML @ 200 mls/hr IV.SIG Q12H MONICA Rx#:[id number] Oral 120 / 120 Other: # Voids 3 1 Date of Last Bowel Movement 08/24/18 08/29/18 # Bowel Movements 3 Narrative: GENERAL: This is a well-nourished, well-developed patient, in no apparent distress. CARDIOVASCULAR: Regular rate and rhythm RESPIRATORY: Clear to auscultation. Breath sounds equal bilaterally. GASTROINTESTINAL: Abdomen soft, non-tender, nondistended. Normal active bowel sounds MUSCULOSKELETAL: Extremities without clubbing, cyanosis. mild edema left hand no erythema or warmth NEURO: Alert & Oriented. Moves all ext x4 Results - Labs CBC & Chem 7: 08/30/18 05:35 08/30/18 05:35 Laboratory Results - last 24 hr 08/28/18 08/29/18 08/29/18 19:56 04:11 09:25 WBC 13.7 H RBC 3.62 L Hgb 11.7 Hct 35.0 MCV 96.7 MCH 32.4 MCHC 33.5 RDW 12.7 Plt Count 258 MPV 10.1 Neut % (Auto) 70.0 Lymph % (Auto) 16.4 [place] % (Auto) 10.5 H Eos % (Auto) 2.7 Baso % (Auto) 0.4 Neut # (Auto) 9.6 H Lymph # (Auto) 2.3 [place] # (Auto) 1.4 H Eos # (Auto) 0.4 Baso # (Auto) 0.0 WBC Differential . Differential Comment Auto diff final POC Glucose 239 H 156 H 08/29/18 08/29/18 12:34 16:27 WBC RBC Hgb Hct MCV MCH MCHC RDW Plt Count MPV Neut % (Auto) Lymph % (Auto) [place] % (Auto) Eos % (Auto) Baso % (Auto) Neut # (Auto) Lymph # (Auto) [place] # (Auto) Eos # (Auto) Baso # (Auto) WBC Differential Differential Comment POC Glucose 184 H 204 H Microbiology 08/25/18 22:10 Blood - Peripheral Aerobic Blood Culture - Preliminary No growth in 4 days 08/25/18 22:10 Blood - Peripheral Anaerobic Blood Culture - Preliminary No growth in 4 days 08/25/18 22:05 Blood - Peripheral Aerobic Blood Culture - Preliminary No growth in 4 days 08/25/18 22:05 Blood - Peripheral Anaerobic Blood Culture - Preliminary No growth in 4 days - Imaging Impressions Elbow X-Ray 08/29/18 00:00 CONCLUSION: No evidence of fracture or dislocation. Hand X-Ray 08/29/18 00:00 CONCLUSION: 1. No acute fracture identified. 2. Widening of the scapholunate distance suggesting scapholunate ligament injury. Chronicity of this is uncertain. Wrist X-Ray 08/29/18 00:00 CONCLUSION: No evidence of recent bony injury. - Procedures None Assessment and Plan - Assessment (1) Leukocytosis Code(s): D72.829 - Elevated white blood cell count, unspecified Status: Acute Plan: This is an 78-year-old female patient with past medical history which includes HTN, DM, peripheral neuropathy, hypothyroidism, gout, hyperlipidemia, CKD osteoarthritis of multiple joints, lumbar degenerative disc disease, fibromyalgia and IBS. Patient reports that she had lower abdominal pain with diarrhea last week. Then today she rolled out of bed and hit her head on the night stand, denies LOC. Then patient reports about 1 hour after that she began to have Chest pain - resolved serial troponin 0.03 x 2, 0.02 x 1 initial EKG Normal sinus rhythm nonspecific ST-T wave abnormalities on inferior leads. No signs of acute AR. Leukocytosis ? source WBC on admission 23.1 -> 21.5 (08/26) -> 18.3 (08/27) -> 16.4 (08/27) -> 15.6 (08/28 ) -> 13.7 (08/29) Tmax 101.7 (08/26) 1907 patient received cefepime x 1 in ER,will continue UA revived and reveals: neg protein and neg nitrates, trace leukocyte Esterase urine culture pending CXR reviewed and reveals: No acute cardiopulmonary disease identified. CT Abdomen/pelvis reviewed and reveals: 1. No acute findings in the abdomen and pelvis. 2. Colonic diverticulosis but no evidence of acute diverticulitis. CT head reviewed and reveals: 1. No acute findings in the brain. 2. Ischemic change in the supratentorial white matter including a lacunar infarct, stable from prior. Blood cultures no growth x 3 days Urine Culture 10-50,000 cfu/mL mixed gram positive torito (probable contaminants) Hand, wrist, elbow pain after fall at home prior to admission Elbow X-Ray 08/29/18 00:00 No evidence of fracture or dislocation. Hand X-Ray 08/29/18 00:00 1. No acute fracture identified. 2. Widening of the scapholunate distance suggesting scapholunate ligament injury. Chronicity of this is uncertain. MRI in AM Follow up with outpatient hand surgery Wrist X-Ray 08/29/18 00:00 No evidence of recent bony injury. Hypoxia DC with home oxygen HTN Continue patient's home nifedipine 60 mg PO BID and metoprolol 50 mg PO BID DM Hold patient's home glimepiride 4 mg PO BID and hold patient's home levemir 20 units QAM and 15 units QHS accuchecks ACHS with SSI coverage Hypothyroidism Continue patient's home levothyroxine 112 mcg daily Hyperlipidemia Continue patient's home atorvastatin 40 mg daily Constipation - resolved patient reports large BM this afternoon bowel regiment Milk of magnesia x 1 DVT prophylaxis with SCDs (2) HTN (hypertension) Code(s): I10 - Essential (primary) hypertension Status: Acute (3) Diabetes mellitus Code(s): E11.9 - Type 2 diabetes mellitus without complications Status: Acute (4) Hypotension Code(s): I95.9 - Hypotension, unspecified Status: Acute (5) Hyperlipidemia Code(s): E78.5 - Hyperlipidemia, unspecified Status: Acute - Plan This is an 78-year-old female patient with past medical history which includes HTN, DM, peripheral neuropathy, hypothyroidism, gout, hyperlipidemia, CKD osteoarthritis of multiple joints, lumbar degenerative disc disease, fibromyalgia and IBS. Patient reports that she had lower abdominal pain with diarrhea last week. Then today she rolled out of bed and hit her head on the night stand, denies LOC. Then patient reports about 1 hour after that she began to have Chest pain serial troponin 0.03 x 2 initial EKG Normal sinus rhythm nonspecific ST-T wave abnormalities on inferior leads. No signs of acute AR. Leukocytosis ? gastroenteritis/dehydration WBC on admission 23.1 Tmax 100.0 patient received cefepime x 1 in ER,will continue then reevaluate tomorrow UA revived and reveals: neg protein and neg nitrates, trace leukocyte Esterase urine culture pending CXR reviewed and reveals: No acute cardiopulmonary disease identified. CT Abdomen/pelvis reviewed and reveals: 1. No acute findings in the abdomen and pelvis. 2. Colonic diverticulosis but no evidence of acute diverticulitis. CT head reveiewed and reveals: 1. No acute findings in the brain. 2. Ischemic change in the supratentorial white matter including a lacunar infarct, stable from prior. recheck CBC and BMP HTN Continue patient's home nifedipine 60 mg PO BID and metoprolol 100 mg PO BID Hold patient's home losartan 50 mg PO daily DM Hold patient's home glimepiride 4 mg PO BID and hold patient's home levemir 20 units QAM and 15 units QHS accuchecks ACHS with SSI coverage Hypothyroidism Continue patient's home levothyroxine 137 mcg daily Hyperlipidemia Continue patient's home atorvastatin 80 mg daily DVT prophylaxis with SCDs - Attending Attestation Patient examined. Assessment and plan formulated with Rachell Vaz PA-C. I agree with the above.
[2018-08-29] MEDS: KCL 20 mEq/NACL 0.45% Inj 1,000 ML IV.CONT SCH (21:45)
[2018-08-30] MEDS: Levothyroxine 112 MCG Tablet PO SCH (06:18)
[2018-08-30 06:46] LABS: Baso # (Auto) 0.1 th/mm3 (0.0-0.2); Baso % (Auto) 0.6 % (0.0-2.0); Eos # (Auto) 0.6 th/mm3 (0.0-0.4); Eos % (Auto) 4.3 % (0.0-4.0); Hematocrit 33.9 % (35.0-46.0); Hemoglobin 11.4 gm/dL (11.6-15.3); Lymph # (Auto) 2.7 th/mm3 (1.0-4.8); Lymph % (Auto) 20.2 % (9.0-44.0); Mean Corpuscular HGB Conc 33.6 % (32.0-36.0); Mean Corpuscular Hemoglobin 32.2 pg (27.0-34.0); Mean Platelet Volume 10.3 fL (7.0-11.0); Mono % (Auto) 14.7 % (0.0-8.0); Neut # (Auto) 8.1 th/mm3 (1.8-7.7); Neut % (Auto) 60.2 % (16.0-70.0); Platelet Count 255 th/mm3 (150-450); Red Blood Count 3.53 mil/mm3 (4.00-5.30); Red Cell Distribution Width 12.8 % (11.6-17.2); White Blood Count 13.5 th/mm3 (4.0-11.0)
[2018-08-30 07:25] LABS: Calcium 8.8 mg/dL (8.5-10.1); Potassium 4.1 meq/L (3.5-5.1)
[2018-08-30] MEDS: Insulin NovoLOG Aspart Correctional Sugar Inj SQ SCH ×2 (09:54→12:55)
[2018-08-30] MEDS: Metoprolol Tartrate 25 MG Tablet PO SCH (09:54)
[2018-08-30] MEDS: Docusate Sodium 100 MG Capsule PO SCH (09:56)
[2018-08-30] MEDS: KCL 20 mEq/NACL 0.45% Inj 1,000 ML IV.CONT SCH (11:41)
[2018-08-30 13:50] VITALS: RESP 18
[2018-08-30 14:16] VITALS: BP 137/56; PULSE 86; TEMP 98.1; O2SAT 94
--- NOTE | 2018-08-30 19:47 | MR ---
EXAM DATE: 08/30/2018 8:42 AM EDT AGE/SEX: 78 years / Female INDICATIONS: . Pain after fall. Evaulate for scapholunate ligamentous injury. CLINICAL DATA: This is the patient's initial encounter. Patient reports that signs and symptoms have been present for 2 days and indicates a pain score of 4/10. MEDICAL/SURGICAL HISTORY: Diabetes mellitus type II. Hypertension. Renal insufficiency, chron ic. Hysterectomy. Tonsillectomy. COMPARISON: No prior exams available for comparison. TECHNIQUE: Multiplanar, multisequence MRI examination was performed without contrast. FINDINGS: Moderate motion artifact noted. Scapholunate ligament is intact. Small perforation of the lunotriquet ral ligament is noted. Central triangular fibrocartilage is not well evaluated due to motion artifact . A definite fluid-filled gap is not seen. Moderate-sized osteophytes and moderate severity articular cartilage thinning thumb carpometacarpal j oint. Moderate-sized osteophytes and mild articular cartilage thinning of the qtrftpay-sulltnygi-nzqk ezoid joint. Mild reactive bony changes of the proximal pole of the lunate and triquetrum as well as the proximal pole of the capitate and distal pole of the scaphoid. Mild extensor digitorum tenosynovitis and mild flexor digitorum tenosynovitis. CONCLUSION: 1. Scapholunate ligament intact. 2. Osteoarthritic findings of the wrist most prominent at the thumb CMC joint. Findings are also see n at the STT joint and radiocarpal joint with proximal pole subchondral arthritic changes at the agueda te and triquetrum. 3. Mild flexor and extensor digitorum tenosynovitis. 4. Perforation of the lunotriquetral ligament. Electronically signed by: Willian Harrison MD 08/30/2018 7:46 PM EDT
--- NOTE | 2018-08-30 19:52 | MR ---
EXAM DATE: 08/30/2018 7:10 AM EDT AGE/SEX: 78 years / Female INDICATIONS: . Pain after fall. Evaluate for scapholunate ligamentous injury. CLINICAL DATA: This is the patient's initial encounter. Patient reports that signs and symptoms have been present for 2 days and indicates a pain score of 3/10. MEDICAL/SURGICAL HISTORY: Renal insufficiency, chronic. Diabetes mellitus type II. Hypertensi on. Hysterectomy. Tonsillectomy. Cataracts. COMPARISON: No prior exams available for comparison. TECHNIQUE: Multiplanar, multisequence MRI examination was performed without contrast. FINDINGS: Moderate-sized osteophytes of the thumb interphalangeal joint and small osteophytes of the thumb meta carpophalangeal joint. Bone marrow signal is homogeneous and within normal limits. No evidence of fra cture. All of the visualized tendons are intact. No evidence of joint effusion. CONCLUSION: Osteoarthritic findings thumb. Electronically signed by: Willian Harrison MD 08/30/2018 7:50 PM EDT
== END 2018-08-30 16:30 | disposition home health service (06) ==
LOC: NEPC 21:14 → NEDA 08-26 03:47 → INTOOBSV 08-26 03:47 → NEDA 08-26 07:18 → NEPGCP 08-26 07:22 → N04 08-29 19:26
PROVIDERS: ADMIT Hospitalist; ATTEND Hospitalist